=== PATIENT | female | born 1945 | race Caucasian/White ===

== ENCOUNTER 2017-01-08 09:49 | Inpatient (IN) | payer MEDICARE ==
[~2017-01-08] VITALS: Ht 165.1 cm; Wt 88.3 kg
[2017-01-08 11:18] VITALS: BP 117/73
--- NOTE | 2017-01-08 11:45 | Physical Therapy Evaluation ---
PT Evaluation-General Medical Diagnosis Admission Date Jan 08, 2017 at 11:14 Medical Diagnosis: debility Onset Date: Nov 23, 2016 Therapy Diagnosis Therapy Diagnosis: weakness; abn gait Precautions Precautions/Isolations: Standard Precautions Weight Bear Status Weight Bearing Restriction: Weight Bearing/Tolerated Referral Physician: Richi Reason for Referral: Evaluation/Treatment Medical History Pertinent Medical History: Atrial Fib, HTN Additional Medical History s/p lumpectomy breast; recent pneumonia Current History Pt diagnosed with breast cancer in late 2015 and underwent a lumpectomy and started chemotherapy. She began having "sciatic like" pain in her left buttock and leg. She was subsequently diagnosed with herpes zoster at the L5 region. chemotherapy was discontinued at that time. She had a progression of L LE weakness with the inability to ambulate. She started her hospital stay in [place], transferred to [facility]; from there transferred to [facility] in [place], [place]. She arrived to our ARU this date for continued aggressive therapy services with the goal to return home with her spouse. Pt reports she has been able to stand with therapy services at the [facility], but unable to take steps, ambulate or perform a transfer. Reports they have been using a carol lift to transfer from surface to surface. She is using a wheelchair for mobility. Reviewed History: Yes Social History Home: Single Level Current Living Status: Spouse Entry Into Home: Ramp Spouse reports home is handicap accessible. Pt has a FWW, WC, ramp, grab bars at toilet and in shower, walk in shower, tall toilet. Prior/Core FIM Prior Level of Function Functional [place] Measure 0=Not Assessed/NA 4=Minimal Assistance 1=Total Assistance 5=Supervision or Setup 2=Maximal Assistance 6=Modified [place] 3=Moderate Assistance 7=Complete [place] Prior to November 2016, pt was indep with mobility, community ambulator and able to to drive. She cares for her disabled granddaughter 5 days a week. PT Evaluation-Current Subjective Pt and spouse express being happy to be here. Pt reports her goal is to return home when able. Pain Numeric Pain Scale: 0-No Pain Location: No Pain Reported Comment: No pain at this time,reports she does have neuropathy pain at times Pt/Family Goals Home with spouse. Objective Patient Orientation: Person, Place, Time, Situation Problem Solving: Good ROM/Strength ROM Lower Extremities WNL B LE's Strenght Lower Extremities Right LE strength is grossly 4+/5 throughout. Left LE strength: hip flexion 2+/5, hip extension 2+/5, quads 2+/5, hamstrings 2+/5, DF unable to elicit Integumentary/Posture Integumentary Refer to nursing notes. Bowel Incontinence: Yes (at times; difficulty sensing when she needs to go) Bladder Incontinence: Mi Cath Posture Normal and symmetrical Neuromuscular (Tone, Coordination, Reflexes) Decreased coordination left LE with active movement; no noted alteration in tone ; reflexes appear to be symmetrical. Sensory Vision: Functional Hearing: Functional Hand Dominance: Right Sensation Right Lower Extremit: Intact Sensation Left Lower Extremity: Impaired Transfers Functional [place] Measure 0=Not Assessed/NA 4=Minimal Assistance 1=Total Assistance 5=Supervision or Setup 2=Maximal Assistance 6=Modified [place] 3=Moderate Assistance 7=Complete IndependenceIRFPAI Quality Coding Scale 6 Independent with activity with or without an assistive device 5 Patient requires set up or clean up by helper. Patient completes activity by themselves 4 Supervision or touching assist (CGA). [place] provide cues , steadying assist 3 The helper provides less than half the effort to complete the activity 2 The helper provides more than half the effort to complete the activity 1 Dependent. The helper does all the effort to complete an activity 7 Patient refused to complete or attempt activity 9 The patient did not perform the activity before the current illness or injury 88 Not attempted due to Medical conditions or safety concerns Transfers (B, C, W/C) (FIM): 3 Scootin Rollin Roll Left to Right (QC): 4 Supine to/from Sit: 4 (assist to left trunk from bed) Sit to/from Stand: 4 (min assist to come to a stand with cues for hand placement) bed t/f WC(FIM only if WC use): 3 (heavy assist with FWW; min assist at gait belt and assist to guide buttock) Sit to Lying (QC): 4 (CGA) Lying to Sitting/Side of Bed(Q: 4 Sit to Stand (QC): 4 Chair/Faz-hz-Lceqk Xfer(QC): 3 Car Transfer (QC): 88 Heavy reliance on FWW with SPT and requires skilled cues for sequence and to move the walker. Gait Does the Patient Walk?: Yes Mode of Locomotion: Both Anticipated Mode of Locomotion: Both Gait (FIM): 1 Distance (FIM): 1=up to 49 ft Walk 10 feet (QC): 88 Walk 50 ft with 2 Turns(QC): 88 Walk 150 ft (QC): 88 Walking 10ft/uneven surface-QC: 88 Distance: 4 steps only Gait Level of Assist: 4 (close CGA and assist with FWW) Gait Assistive Device: FWW Comments/Gait Description Decreased coordination and placement of left LE with steps; quad weakness noted with heavy reliance on FWW during standing. Wheelchair Training Does the Pt Use a Wheelchair?: Yes Wheelchair (FIM): 6 Wheelchair Distance (FIM): 3=150 ft Wheel 50 ft with 2 turns (QC): 6 Wheel 150 ft (QC): 6 Type of Wheelchair: Manual Stairs Stairs (FIM): 0 (unable to attempt; LE weakness; unable to ambulate. ) 1 Step (curb) (QC): 88 4 Steps (QC): 88 12 Steps (QC): 88 If not tested on admit;explain Unable to due to weakness Balance Sitting Static: Good Sitting Dynamic: Good Standing Static: Fair Standing Dynamic: Fair Picking up an Object (QC): 88 Treatment SPT to the right x 3 reps with mod assist with assist with the walker as well as min to CGA at the gait belt. Static standing activities while roberto carlos care performed by nursing; dep for roberto carlos care and to change undergarments. Toilet transfer with mod assist as well. Worked on bed mobility with rolling and scooting implemented. Wc mobility in [facility] area mod indep with mulitple turns. Assessment/Needs Pt presents with LE weakness and decreased coordination left LE with active movement with reduced ability to transfer and mobilize with gait. She needs light assist with bed mobility. She is oriented and motivated to progress. It appears her symptoms of weakness and decreased coordination are improving and feel she has good potential to make functional gains. Unsure if she will be at a full walking level or combo of walking/wheelchair at discharge. Will continue to assess. Personal factors: uses power chair for community mobility, breast CA, history of herpes zoster; L LE weakness; decreased coordination L LE; assist with transfers and bed mobility; unable to ambulate; Presents with a changing characteristic due to hx of herpes zoster, breast CA . Eval of moderate complexity. Rehab Potential: Good PT Short Term Goals Short Term Goals Time Frame: Jan 22, 2017 Transfers (B,C,W/C) (FIM): 4 Gait (FIM): 2 Distance (FIM): 1=up to 49 ft Gait Assistive Device: FWW PT Correction Goals Correction Goals PT Correction Goals Time Frame: February 05, 2017 Transfers (B,C,W/C) (FIM): 6 Sit to Lying (QC): 6 Lying-Sitting on Side/Bed(QC): 6 Sit to Stand (QC): 6 Roll Left to Right (QC): 6 Chair/Mif-jy-Zlcrm Xfer(QC): 6 Car Transfer (QC): 5 Does the Patient Walk: No and Walking Goal IS indicated Gait (FIM): 6 Gait distance (FIM): 3=150 ft Walk 10 feet (QC): 6 Walk 10ft-Uneven Surface(QC): 6 Walk 50ft with 2 Turns (QC): 6 Walk 150 ft (QC): 6 Gait Assistive Device: FWW Does the Pt use WC or Scooter?: Yes Wheelchair (FIM): 6 Wheel 50 feet with 2 turns (QC: 6 Stairs (FIM): 2 # of Steps: 4 1 Step (curb) (QC): 4 4 Steps (QC): 4 12 Steps (QC): 9 Picking up an Object (QC): 4 PT Plan Problem List Problem List: Activity Tolerance, Functional Strength, Safety, Balance, Gait, Transfer, Bed Mobility Treatment/Plan Treatment Plan: Continue Plan of Care Treatment Plan: Bed Mobility, Education, Functional Activity Tony, Functional Strength, Group Therapy, Gait, Safety, Therapeutic Exercise, Transfers Treatment Duration: February 05, 2017 # of days/week 5-6 Visits Per Week: 10-15 Minutes/Day (M-F): 60-90 Minutes/Day (Sat/Simpson): prn Safety Risks/Education Patient Education: Transfer Techniques, Safety Issues Teaching Recipient: Patient Teaching Methods: Demonstration Response to Teaching: Return Demonstration, Reinforcement Needed Time/GCodes Time In: 1015 Time Out: 1115 Total Billed Treatment Time: 60 Total Billed Treatment visit EVM 20 FA 40 CECILIA CARO PT Jan 08, 2017 11:45
[2017-01-08] MEDS ORDERED: PROCHLORPERAZINE 10 MG TAB (COMPAZINE) PO PRN (14:00)
[2017-01-08] MEDS ORDERED: BISACODYL 10 MG SUPP (DULCOLAX) PR PRN (14:00)
[2017-01-08] MEDS ORDERED: ANTACID SUSP 30 ML UDC (MYLANTA) PO PRN (14:00)
[2017-01-08] MEDS ORDERED: TEMAZEPAM 15 MG (RESTORIL) CAP PO PRN (14:00)
--- NOTE | 2017-01-08 14:37 | Therapy Group Daily Note ---
Therapy Daily Group Note Patient Education Topic Other List Below Exercises LE Seated Exercise, UE Exercise Other/Notes Pt was an active participant in OT/PT group. She introduced herself to the group for socialization by identifying her favorite job. She contributed to the discussion/education on the arthritic progress and joint protection and did seated UE, neck and trunk, and LE exercises and stretches . She propelled her w/ c to and from group and was returned to her room, all needs met. Start Time: 13:00 Stop Time: 14:15 Total Billed Treatment Time: 75 Total Billed Treatment visit, 75 minutes group DORIS LUU OT Jan 08, 2017 14:37
[2017-01-08] MEDS: oxyCODONE/APAP 5/325MG (PERCOCET 5) TABLET PO PRN (14:51)
[2017-01-08] MEDS ORDERED: ACETAMINOPHEN 325 MG TABLET/CAPLET (TYLENOL) PO PRN (15:00)
[2017-01-08 15:11] LABS: INR 3.4 (0.8-1.4); PROTHROMBIN TIME PATIENT 34.2 SEC (12.2-14.7)
--- NOTE | 2017-01-08 15:59 | Occupational Therapy Eval ---
OT Evaluation-General/PLF Medical Diagnosis Admission Date Jan 08, 2017 at 11:14 Medical Diagnosis: debility Onset Date: Nov 23, 2016 Therapy Diagnosis Therapy Diagnosis: decr self care, decr functional mobility, weakness Precautions Precautions/Isolations: Standard Precautions Weight Bear Status Weight Bearing Restriction: Weight Bearing/Tolerated Referral Physician: Richi Referral Reason: Evaluation/Treatment Medical History Pertinent Medical History: Atrial Fib, HTN Additional Medical History s/p lumpectomy breast; recent pneumonia Current History Pt diagnosed with breast cancer in late 2015 and underwent a lumpectomy and started chemotherapy. She began having "sciatic like" pain in her left buttock and leg. She was subsequently diagnosed with herpes zoster at the L5 region. chemotherapy was discontinued at that time. She had a progression of L LE weakness with the inability to ambulate. She started her hospital stay in [place], transferred to [facility]; from there transferred to [facility] in [place], [place]. She arrived to our ARU this date for continued aggressive therapy services with the goal to return home with her spouse. Pt reports she has been able to stand with therapy services at the [facility], but unable to take steps, ambulate or perform a transfer. Reports they have been using a carol lift to transfer from surface to surface. She is using a wheelchair for mobility. Reviewed History: Yes Social History Home: Single Level Current Living Status: Spouse Entry Into Home: Ramp ADL-Prior Level of Function ADL PLOF Comments Pt reported that she was independent with all of her basic ADLs prior to shingles, although she took periodic rest breaks during tasks. She was able to drive and manage IADLs as well. DME/Equipment: Bath Chair, Grab Bars, Shower, Tall Toilet DME/Equipment Comments reported that bathroom is fully accessible. Occupation: Has worked in manufacturing Drive Self: Yes OT Current Status Subjective Pt seen in room, up in w/c, agreeable to OT. No pain mentioned Appearance Alert, cooperative Mental Status/Objective Patient Orientation: Person, Place, Situation Attachments: Mi Catheter Current Glasses/Contacts: No Hearing Aids: No Dentures/Partials: No Hand Dominance: Left Upper Extremity ROM Grossly WFL bilat Upper Extremity Sensation Pt reported numbness in finger tips from chemo Upper Extremity Strength Grossly 4+/5 bilat but not adequate for supporting her weight when standing with FWW and for walking. ADL-Treatment Functional [place] Measure 0=Not Assessed/NA 4=Minimal Assistance 1=Total Assistance 5=Supervision or Setup 2=Maximal Assistance 6=Modified [place] 3=Moderate Assistance 7=Complete IndependenceIRFPAI Quality Coding Scale 6 Independent with activity with or without an assistive device 5 Patient requires set up or clean up by helper. Patient completes activity by themselves 4 Supervision or touching assist (CGA). [place] provide cues , steadying assist 3 The helper provides less than half the effort to complete the activity 2 The helper provides more than half the effort to complete the activity 1 Dependent. The helper does all the effort to complete an activity 7 Patient refused to complete or attempt activity 9 The patient did not perform the activity before the current illness or injury 88 Not attempted due to Medical conditions or safety concerns Eating (FIM): 6 (No assistance needed to open packages or cut food. can feed herself) Eating (QC): 6 Toileting (FIM): 1 (Pt unable to manage clothig or hygiene) Toileting Hygiene (QC): 1 Toilet/Commode Transfer (FIM): 3 (To BSC, per PT) Toilet Transfer (QC): 3 (Per PT) Other Treatments Pt propelled her w/c to gym. She did 12 minutes bilat UE exercise with arm bike set at 10-12 W resistance, as needed to strengthen arms for walking with FWW. Pt propelled herself back to her room and is able to lock brakes on w/c Education OT Patient Education: Exercise program, Progress toward Goal/Update tx plan, Purpose of tx/functional activities, Rehab process Teaching Recipient: Patient, Family Teaching Methods: Discussion Response to Teaching: Verbalize Understanding OT Short Term Goals Short Term Goals Time Frame: Jan 22, 2017 Toileting(FIM): 3 Toilet/Commode Transfer(FIM): 4 Additional Short Term Goals: 2-Verbalize Understanding, 3-ImproveStrength/Tony 1=Demonstrate adherence to instructed precautions during ADL tasks. 2=Patient will verbalize/demonstrate understanding of assistive devices/ modifications for ADL. 3=Patient will improve strength/tolerance for activity to enable patient to perform ADL's. OT Housing Installer Goals Intermediate Goals Time Frame: February 05, 2017 Eating (FIM): 7 Eating (QC): 6 Groomin Oral Hygiene (QC): 6 Bathing(FIM): 6 Shower/Bathe Self (QC): 6 Upper Body Dressing(FIM): 6 Upper Body Dressing (QC): 6 Lower Body Dressing(FIM): 6 Lower Body Dressing (QC): 6 On/Off Footwear (QC): 6 Toileting(FIM): 6 Toileting Hygiene (QC): 6 Toilet/Commode Transfer(FIM): 6 Toilet/Commode Transfer (QC): 6 Shower Transfer(FIM): 6 Additional Goals: 2-Verbalize Understanding, 3-ImproveStrength/Tony 1=Demonstrate adherence to instructed precautions during ADL tasks. 2=Patient will verbalize/demonstrate understanding of assistive devices/ modifications for ADL. 3=Patient will improve strength/tolerance for activity to enable patient to perform ADL's. OT Education/Plan Problem List/Assessment Assessment: Decreased Activ Tolerance, Decreased UE Strength, Dependent Transfers, Impaired Funct Balance, Impaired Self-Care Skills Pt would benefit from skilled OT to increase her independence in basic self care to allow her to safely return home to live with her . Discharge Recommendations Plan/Recommendations: Continue POC Treatment Plan/Plan of Care Treatment,Training & Education: Yes Patient would benefit from OT for education, treatment and training to promote independence in ADL's, mobility, safety and/or upper extremity function for ADL' s. Plan of Care: ADL Retraining, Functional Mobility, Group Exercise/Act as Ind ( education, exercise, activity tolerance, functional activities, memory), UE Funct Exercise/Act, UE Neuromus Re-Ed/Coord Treatment Duration: February 05, 2017 # of days/week 5-6 Visits Per Week: 10-11 Minutes/Day (M-F): 75-90 Minutes/Day (Sat/Simpson): PRN Agreement: Yes Rehab Potential: Good Time/GCodes Start Time: 11:15 Stop Time: 12:05 Total Time Billed (hr/min): 50 Billed Treatment Time visit, 20 minutes evaluation moderate intensity, 30 minutes exercise DORIS LUU OT Jan 08, 2017 15:59
[2017-01-08] MEDS: warFARin 5 MG (COUMADIN) TAB PO SCH (18:00)
[2017-01-08 18:41] VITALS: BP 132/76
[2017-01-08] MEDS: traZODone 50 MG (DESYREL) TAB PO SCH (20:29)
[2017-01-08] MEDS: PREGABALIN 100 MG (LYRICA) CAPSULE PO SCH (20:29)
[2017-01-08] MEDS: AMIODARONE 200 MG (CORDARONE) TAB PO SCH (20:29)
[2017-01-09 05:08] VITALS: BP 144/80
[2017-01-09 06:17] LABS: INR 3.1 (0.8-1.4); PROTHROMBIN TIME PATIENT 31.5 SEC (12.2-14.7)
[2017-01-09] MEDS: DULoxetine 30 MG (CYMBALTA) CAP PO SCH (07:54)
[2017-01-09] MEDS: LIDOCAINE (LIDODERM) 5% PATCH TOP SCH ×2 (07:55→10:00)
[2017-01-09] MEDS: DIGOXIN 0.125 MG (LANOXIN) TAB PO SCH (07:55)
[2017-01-09] MEDS: PREGABALIN 100 MG (LYRICA) CAPSULE PO SCH ×2 (07:55→20:35)
[2017-01-09] MEDS: AMIODARONE 200 MG (CORDARONE) TAB PO SCH ×2 (07:56→20:34)
--- NOTE | 2017-01-09 08:57 | Physical Therapy Daily Note ---
PT Daily Note-Current Subjective Patient in bed, agrees to PT, states she has some minor pain in her toes due to neuropathy. Patient will need to get dressed, will need to get on AFO, shoes, socks, bra, dress. Appearance Patient in wheelchair at bedside for ST, has nurse call, phone, tray, all needs met. Mental Status Patient Orientation: Normal For Age Transfers Functional [place] Measure 0=Not Assessed/NA 4=Minimal Assistance 1=Total Assistance 5=Supervision or Setup 2=Maximal Assistance 6=Modified [place] 3=Moderate Assistance 7=Complete IndependenceIRFPAI Quality Coding Scale 6 Independent with activity with or without an assistive device 5 Patient requires set up or clean up by helper. Patient completes activity by themselves 4 Supervision or touching assist (CGA). [place] provide cues , steadying assist 3 The helper provides less than half the effort to complete the activity 2 The helper provides more than half the effort to complete the activity 1 Dependent. The helper does all the effort to complete an activity 7 Patient refused to complete or attempt activity 9 The patient did not perform the activity before the current illness or injury 88 Not attempted due to Medical conditions or safety concerns Transfers (B, C, W/C) (FIM): 4 Scootin Rollin Supine to/from Sit: 4 Sit to/from Stand: 4 Bed to/from Chair: 4 Occasional cues for safety and hand placement. Gait Training Gait (FIM): 1 Distance: 12'x4 Gait Level of Assist: 4 Gait Persons Needed: 1 Gait Assistive Device: Parallel Bars Patient ambulated 6' forward and back in the parallel bars x4 with CGA/[place] Wheelchair Training Does the Pt Use a Wheelchair?: Yes Wheelchair (FIM): 6 Distance: 150'x2 Type of Wheelchair: Manual Exercises LAQ alternating for 5 min Treatments dressing, bed mobility and transfers, ambulation, wheelchair mobility, functional strengthening Assessment Current Status: Fair Progress improved ambulation and endurance PT Short Term Goals Short Term Goals Time Frame: Jan 22, 2017 Gait (FIM): 2 Distance (FIM): 1=up to 49 ft Gait Assistive Device: FWW PT Custodial Goals Custodial Goals PT Custodial Goals Time Frame: February 05, 2017 Transfers (B,C,W/C) (FIM): 6 Sit to Lying (QC): 6 Lying-Sitting on Side/Bed(QC): 6 Sit to Stand (QC): 6 Rollin Roll Left to Right (QC): 6 Chair/Vnz-zk-Havwf Xfer(QC): 6 Car Transfer (QC): 5 Does the Patient Walk: No and Walking Goal IS indicated Gait (FIM): 6 Gait distance (FIM): 3=150 ft Walk 10 feet (QC): 6 Walk 10ft-Uneven Surface(QC): 6 Walk 50ft with 2 Turns (QC): 6 Walk 150 ft (QC): 6 Gait Assistive Device: FWW Does the Pt use WC or Scooter?: Yes Wheelchair (FIM): 6 Wheel 50 feet with 2 turns (QC: 6 Stairs (FIM): 2 # of Steps: 4 1 Step (curb) (QC): 4 4 Steps (QC): 4 12 Steps (QC): 9 Picking up an Object (QC): 4 PT Plan Problem List Problem List: Activity Tolerance, Functional Strength, Safety, Balance, Gait, Transfer, Bed Mobility Treatment/Plan Treatment Plan: Continue Plan of Care Treatment Plan: Bed Mobility, Education, Functional Activity Tony, Functional Strength, Group Therapy, Gait, Safety, Therapeutic Exercise, Transfers Treatment Duration: February 05, 2017 Visits Per Week: 10-15 Minutes/Day (M-F): 60-90 Minutes/Day (Sat/Simpson): prn Safety Risks/Education Patient Education: Gait Training, Transfer Techniques, Correct Positioning, W/ C Management, Safety Issues Teaching Recipient: Patient Teaching Methods: Demonstration, Discussion Response to Teaching: Reinforcement Needed Time/GCodes Time In: 800 Time Out: 900 Total Billed Treatment Time: 60 Total Billed Treatment 1 visit GT 30 min FA 15 min WCH 15 min LALO VILLEGAS PT Jan 09, 2017 08:57
[2017-01-09] MEDS: ONDANSETRON 4 MG (ZOFRAN) ORAL DISSOLVE TAB PO PRN (11:28)
--- NOTE | 2017-01-09 13:43 | Occupational Ther Daily Note ---
OT Current Status-Daily Note Subjective Pt seen in room, up in w/c, agreeable to OT. No pain mentioned. Appearance Alert, cooperative Mental Status/Objective Functional [place] Measure 0=Not Assessed/NA 4=Minimal Assistance 1=Total Assistance 5=Supervision or Setup 2=Maximal Assistance 6=Modified [place] 3=Moderate Assistance 7=Complete [place] ADL-Treatment Functional [place] Measure 0=Not Assessed/NA 4=Minimal Assistance 1=Total Assistance 5=Supervision or Setup 2=Maximal Assistance 6=Modified [place] 3=Moderate Assistance 7=Complete IndependenceIRFPAI Quality Coding Scale 6 Independent with activity with or without an assistive device 5 Patient requires set up or clean up by helper. Patient completes activity by themselves 4 Supervision or touching assist (CGA). [place] provide cues , steadying assist 3 The helper provides less than half the effort to complete the activity 2 The helper provides more than half the effort to complete the activity 1 Dependent. The helper does all the effort to complete an activity 7 Patient refused to complete or attempt activity 9 The patient did not perform the activity before the current illness or injury 88 Not attempted due to Medical conditions or safety concerns Grooming (FIM): 5 (Pt brushed teeth at sink, w/c level. No hair to comb after chemotherapy. Washed face and hands in shower. ) Oral Hygiene (QC): 5 Bathing (FIM): 4 (Pt washed and dried all parts in shower, setup, supervision. Able to reach forward to dry legs. Stood CGA with grab bars to dry bottom. Shower bench, grab bars, hand held shower) Shower/Bathe Self (QC): 4 (CGA to dry bottom. ) Upper Body (FIM): 5 (Setup, bra and dress. "I used to have a lot of trouble with buttons but I'm doing OK now.") Upper Body Dressing (QC): 5 Lower Body Dressing (FIM): 3 (Help to get L feet into pants and thread marrufo bag. More than 50% help with socks and shoes (tying them), brace. Min assist sit to stand, holding on to grab bar to help pull pants up, one hand at a time. ) Lower Body Dressing (QC): 3 On/Off Footwear (QC): 2 Shower Transfer(FIM): 3 ([facility] assist with transfer, using grab bars, shower bench. transferred toward L side which is harder. transferred better into shower because she had AFO on. W/c level.) Other Treatment Pt propelled herself to and from shower room. At end of tx, transferred min assist w/c to bed and was able to get both legs into bed herself. left up in bed , 4 rails up, all needs met. Pt was fatigued at end of tx but pleased with her progress. Education OT Patient Education: Modified ADL techniques, Progress toward Goal/Update tx plan, Purpose of tx/functional activities, Safety issues, Transfer techniques Teaching Recipient: Patient Teaching Methods: Demonstration, Discussion Response to Teaching: Reinforcement Needed OT Short Term Goals Short Term Goals Time Frame: Jan 22, 2017 Toileting(FIM): 3 Toilet/Commode Transfer(FIM): 4 Additional Short Term Goals: 2-Verbalize Understanding, 3-ImproveStrength/Tony 1=Demonstrate adherence to instructed precautions during ADL tasks. 2=Patient will verbalize/demonstrate understanding of assistive devices/ modifications for ADL. 3=Patient will improve strength/tolerance for activity to enable patient to perform ADL's. OT Custodial Goals Managed Care Analyst Goals Time Frame: February 05, 2017 Eating (FIM): 7 Eating (QC): 6 Groomin Oral Hygiene (QC): 6 Bathing(FIM): 6 Shower/Bathe Self (QC): 6 Upper Body Dressing(FIM): 6 Upper Body Dressing (QC): 6 Lower Body Dressing(FIM): 6 Lower Body Dressing (QC): 6 On/Off Footwear (QC): 6 Toileting(FIM): 6 Toileting Hygiene (QC): 6 Toilet/Commode Transfer(FIM): 6 Toilet/Commode Transfer (QC): 6 Shower Transfer(FIM): 6 Additional Goals: 2-Verbalize Understanding, 3-ImproveStrength/Tony 1=Demonstrate adherence to instructed precautions during ADL tasks. 2=Patient will verbalize/demonstrate understanding of assistive devices/ modifications for ADL. 3=Patient will improve strength/tolerance for activity to enable patient to perform ADL's. OT Education/Plan Problem List/Assessment Pt would benefit from skilled OT to increase her independence in basic self care to allow her to safely return home to live with her . Discharge Recommendations Plan/Recommendations: Continue POC Treatment Plan/Plan of Care Patient would benefit from OT for education, treatment and training to promote independence in ADL's, mobility, safety and/or upper extremity function for ADL' s. Plan of Care: ADL Retraining, Functional Mobility, Group Exercise/Act as Ind ( education, exercise, activity tolerance, functional activities, memory), UE Funct Exercise/Act, UE Neuromus Re-Ed/Coord Treatment Duration: February 05, 2017 Visits Per Week: 10-11 Minutes/Day (M-F): 75-90 Minutes/Day (Sat/Simpson): PRN Agreement: Yes Rehab Potential: Good Time/GCodes Start Time: 10:00 Stop Time: 11:15 Total Time Billed (hr/min): 75 Billed Treatment Time visit, 75 minutes ADL DORIS LUU OT Jan 09, 2017 13:43
--- NOTE | 2017-01-09 13:52 | Occupational Ther Daily Note ---
OT Current Status-Daily Note Subjective Pt seen in room, up in bed, agreeable to OT. No pain mentioned but reported she had been a little nauseated after ADLs earlier today. Appearance Alert, cooperative Mental Status/Objective Functional [place] Measure 0=Not Assessed/NA 4=Minimal Assistance 1=Total Assistance 5=Supervision or Setup 2=Maximal Assistance 6=Modified [place] 3=Moderate Assistance 7=Complete [place] ADL-Treatment Functional [place] Measure 0=Not Assessed/NA 4=Minimal Assistance 1=Total Assistance 5=Supervision or Setup 2=Maximal Assistance 6=Modified [place] 3=Moderate Assistance 7=Complete IndependenceIRFPAI Quality Coding Scale 6 Independent with activity with or without an assistive device 5 Patient requires set up or clean up by helper. Patient completes activity by themselves 4 Supervision or touching assist (CGA). [place] provide cues , steadying assist 3 The helper provides less than half the effort to complete the activity 2 The helper provides more than half the effort to complete the activity 1 Dependent. The helper does all the effort to complete an activity 7 Patient refused to complete or attempt activity 9 The patient did not perform the activity before the current illness or injury 88 Not attempted due to Medical conditions or safety concerns Other Treatment Pt did 10 reps bilat UE exercise with red (medium resistance) theraband, to strengthen arms to help with transfers and ADLs. Pt educ on the different exercises and occasional skilled cue to do them correctly. Theraband left in room and pt encouraged to do some stretches on her own. Pt left up in bed, all needs met. OT Short Term Goals Short Term Goals Time Frame: Jan 22, 2017 Toileting(FIM): 3 Toilet/Commode Transfer(FIM): 4 Additional Short Term Goals: 2-Verbalize Understanding, 3-ImproveStrength/Tony 1=Demonstrate adherence to instructed precautions during ADL tasks. 2=Patient will verbalize/demonstrate understanding of assistive devices/ modifications for ADL. 3=Patient will improve strength/tolerance for activity to enable patient to perform ADL's. OT Assisted Goals Assisted Goals Time Frame: February 05, 2017 Eating (FIM): 7 Eating (QC): 6 Groomin Oral Hygiene (QC): 6 Bathing(FIM): 6 Shower/Bathe Self (QC): 6 Upper Body Dressing(FIM): 6 Upper Body Dressing (QC): 6 Lower Body Dressing(FIM): 6 Lower Body Dressing (QC): 6 On/Off Footwear (QC): 6 Toileting(FIM): 6 Toileting Hygiene (QC): 6 Toilet/Commode Transfer(FIM): 6 Toilet/Commode Transfer (QC): 6 Shower Transfer(FIM): 6 Additional Goals: 2-Verbalize Understanding, 3-ImproveStrength/Tony 1=Demonstrate adherence to instructed precautions during ADL tasks. 2=Patient will verbalize/demonstrate understanding of assistive devices/ modifications for ADL. 3=Patient will improve strength/tolerance for activity to enable patient to perform ADL's. OT Education/Plan Problem List/Assessment Pt would benefit from skilled OT to increase her independence in basic self care to allow her to safely return home to live with her . Discharge Recommendations Plan/Recommendations: Continue POC Treatment Plan/Plan of Care Patient would benefit from OT for education, treatment and training to promote independence in ADL's, mobility, safety and/or upper extremity function for ADL' s. Plan of Care: ADL Retraining, Functional Mobility, Group Exercise/Act as Ind ( education, exercise, activity tolerance, functional activities, memory), UE Funct Exercise/Act, UE Neuromus Re-Ed/Coord Treatment Duration: February 05, 2017 Visits Per Week: 10-11 Minutes/Day (M-F): 75-90 Minutes/Day (Sat/Simpson): PRN Agreement: Yes Rehab Potential: Good Time/GCodes Start Time: 13:00 Stop Time: 13:15 Total Time Billed (hr/min): 15 Billed Treatment Time visit, 15 minutes exercise DORIS LUU OT Jan 09, 2017 13:52
--- NOTE | 2017-01-09 14:33 | Physical Therapy Daily Note ---
PT Daily Note-Current Subjective Patient in bed pre tx, agrees to PT, no complaints of pain. Patient states she is very tired. Appearance Patient BTB post tx with nurse call, phone, tray, all needs met. Mental Status Patient Orientation: Normal For Age Attachments: Mi Catheter Transfers Functional [place] Measure 0=Not Assessed/NA 4=Minimal Assistance 1=Total Assistance 5=Supervision or Setup 2=Maximal Assistance 6=Modified [place] 3=Moderate Assistance 7=Complete IndependenceIRFPAI Quality Coding Scale 6 Independent with activity with or without an assistive device 5 Patient requires set up or clean up by helper. Patient completes activity by themselves 4 Supervision or touching assist (CGA). [place] provide cues , steadying assist 3 The helper provides less than half the effort to complete the activity 2 The helper provides more than half the effort to complete the activity 1 Dependent. The helper does all the effort to complete an activity 7 Patient refused to complete or attempt activity 9 The patient did not perform the activity before the current illness or injury 88 Not attempted due to Medical conditions or safety concerns Transfers (B, C, W/C) (FIM): 2 Scootin Rollin Supine to/from Sit: 4 Sit to/from Stand: 2 Bed to/from Chair: 2 Patient was much weaker this afternoon. Cues for safety and hand placement. Exercises NuStep Minutes: 15 NuStep Workload: 4 Treatments bed mobility and transfers, functional strengthening Assessment Current Status: Fair Progress improving endurance PT Short Term Goals Short Term Goals Time Frame: Jan 22, 2017 Gait (FIM): 2 Distance (FIM): 1=up to 49 ft Gait Assistive Device: FWW Wheelchair Distance: 150'x2 PT Assisted Goals Retreader Goals PT Assisted Goals Time Frame: February 05, 2017 Transfers (B,C,W/C) (FIM): 6 Sit to Lying (QC): 6 Lying-Sitting on Side/Bed(QC): 6 Sit to Stand (QC): 6 Rollin Roll Left to Right (QC): 6 Chair/[id number]-Jnrfe Xfer(QC): 6 Car Transfer (QC): 5 Does the Patient Walk: No and Walking Goal IS indicated Gait (FIM): 6 Gait distance (FIM): 3=150 ft Walk 10 feet (QC): 6 Walk 10ft-Uneven Surface(QC): 6 Walk 50ft with 2 Turns (QC): 6 Walk 150 ft (QC): 6 Gait Assistive Device: FWW Does the Pt use WC or Scooter?: Yes Wheelchair (FIM): 6 Wheel 50 feet with 2 turns (QC: 6 Stairs (FIM): 2 # of Steps: 4 1 Step (curb) (QC): 4 4 Steps (QC): 4 12 Steps (QC): 9 Picking up an Object (QC): 4 PT Plan Problem List Problem List: Activity Tolerance, Functional Strength, Safety, Balance, Gait, Transfer, Bed Mobility, ROM Treatment/Plan Treatment Plan: Continue Plan of Care Treatment Plan: Bed Mobility, Education, Functional Activity Tony, Functional Strength, Group Therapy, Gait, Safety, Therapeutic Exercise, Transfers Treatment Duration: February 05, 2017 Visits Per Week: 10-15 Minutes/Day (M-F): 60-90 Minutes/Day (Sat/Simpson): prn Safety Risks/Education Patient Education: Transfer Techniques, Correct Positioning, Safety Issues Teaching Recipient: Patient Teaching Methods: Demonstration, Discussion Response to Teaching: Reinforcement Needed Time/GCodes Time In: 1400 Time Out: 1430 Total Billed Treatment Time: 30 Total Billed Treatment 1 visit FA 15' EX 15' LALO VILLEGAS PT Jan 09, 2017 14:33
--- NOTE | 2017-01-09 14:40 | ST Cognitive Linguistic Eval ---
Speech Evaluation-General Medical Diagnosis debility Onset Date: Nov 23, 2016 Therapy Diagnosis Therapy Diagnosis: Cognitive Linguistic Skills WFL Precautions Precautions/Isolations: Fall Prevention, Standard Precautions Referral Referring Physician: Dr. Sanjay Stoddard Reason for Referral: Evaluation/Treatment Cognitive Screen Medical History Pertinent Medical History: Atrial Fib, HTN Reviewed History: Yes Social History Current Living Status: Spouse Speech PLF-Current Status Prior Level of Function The patient denied prior cognitive, speech, or language deficits prior to admission. Subjective The patient was recently admitted to [facility] Rehabilitation Unit following left lower leg weakness secondary to shingles. The patient greeted the clinician appropriately and agreed to participate in the cognitive evaluation on this date. Language Eval: Auditory Comprehends Simple Yes/No Ques: Functional Indent/Objects Multiple Paredes: Functional Ident/Pics in Multiple Paredes: Functional Follows 1-Step Commands: Functional Follows Complex Directions: Functional Follows General Conversations: Functional Language Eval: Verbal Language Completes Spontaneous Greeting: Functional Produces Auto, Serial Info: Functional Imitates Simple Words/Phrases: Functional Word Finding: Functional Requests Basic Needs: Functional States Basic Personal Info: Functional Expresses Complex Ideas: Functional Cognitive Patient Orientation The patient was oriented to month, day of week, date, year, location, and rationale for rehabilitation. Objective Cognitive Domain Attention: WNL Memory: WNL Problem Solving: Functional Executive Functions: WNL Objective Impression The patient demonstrated cognitive linguistic skills grossly WFL for appropriate completion of ADL's. Communication/Social Cognition Comprehension: 5 Expression: 6 Social Interaction: 5 Problem Solvin Memory: 5 Speech Patient Assess Expression of Ideas/Wants: Expression (4) Understanding [place] Content: Understands (4) Brief Interview-Mental Status: Yes Repetition of Three Words: Three (3) Temporal Orientation: Year: Correct (3) Temporal Orientation: Month: Accurate within 5 days(2) Temporal Orientation: Day: Correct (1) Recall : Wear to say "Sock": Yes, no cue required (2) Recall : Color: Yes, no cue required (2) Recall : Bed: Yes, no cue required (2) Speech-Plan Treatment Plan Speech Therapy Treatment Plan: Discontinue ST Evaluation, only. Rehab Potential: Good Safety Risks/Education Teaching Recipient: Patient Teaching Methods: Discussion Response to Teaching: Verbalize Understanding Education Topics Provided: Plan of Care, Recommendations Time Speech Therapy Time In: 09:30 Speech Therapy Time Out: 09:45 Total Billed Time: 15 Billed Treatment Time 1, YESICA GATES Jan 09, 2017 14:39
--- NOTE | 2017-01-09 16:28 | PM&R Post Admission Assessment ---
Post Admission Physician Asses The preadmission screen agrees with the post admission assessment that the patient is a good candidate for inpatient rehabilitation. The patient will have a comprehensive program of inpatient rehabilitation with a goal of maximizing level of functional dependence prior to discharge home with [family]. The patient will have PT/OT ninety minutes per day, each discipline, five days a week for gait strengthening, conditioning, balance, ADLs , any patient/family/caregiver training necessary. Speech therapy to do cognitive assessment and treat as indicted. Rehabilitation nursing to assist with bowel, bladder, skin, wound care, medication administration, pain management. Railroad Inspector to assist with discharge planning, community reentry. SCD's for DVT prophylaxis. She appears to be well motivated to participate in three hours of therapy a day. She should be able to tolerate three hours of therapy a day from a medical standpoint. She should benefit from the three hours of therapy a day. She has a reasonable discharge plan, reasonable discharge rehabilitation goals and a supportive family. She has various comorbidities that need to be closely monitored with medications and treatments adjusted on a daily basis as needed. These include: HTN Anticoagulation Chronic a FIB Urinary retention Pain and numbness left leg PARISA Barriers to discharge for this patient who had been independent prior to this and for her to be modified independent to supervision for ADLs and mobility skills prior to discharge home with [family], so as to lessen the burden of the caregivers. Risks for this patient include: 1. Fall 2. Fracture 3. DVT 4. Pulmonary embolism 5. Wound infection 6. Skin breakdown 7. Contractures 8. Poorly controlled pain 9. Urinary retention 10. UTI 11. Respiratory infection 12. Aspiration 13. Poorly controlled A FIB 14.Sub or supratherapeutic INR 15.Poorly controlled HTN Estimated Length of Stay: 21 days Prognosis: Rehab prognosis appears good for goal of discharge home with spouse modified independent to supervision for ADLs and mobility skills. YVONNE LIRA MD Jan 09, 2017 16:28
[2017-01-09] MEDS: warFARin 5 MG (COUMADIN) TAB PO SCH (17:40)
[2017-01-09 18:14] VITALS: BP 144/78
--- NOTE | 2017-01-09 18:58 | Consultation ---
History of Present Illness History of Present Illness Patient Consulted On(donell/time) 01/09/17 18:54 Date of Admission History of Present Illness Chief complaint debility. Patient's had breast cancer and had a lumpectomy Patient received chemotherapy. Patient got herpes zoster. Herpes zoster was in the hip region on the left side. 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 Surgeries appendectomy, hysterectomy, right lumpectomy, lymph nodes. Heart patient goes in and out of A. fib and sinus rhythm Allergies and Home Medications Allergies Coded Allergies: No Known Allergies (Verified Allergy, Unknown, 01/08/17) Past Hpawhss-Qofuhr-Glpvxy Hx Patient Social History Alcohol Use: Denies Use Recreational Drug Use: No Smoking Status: Never a Smoker Recent Foreign Travel: No Contact w/Someone Who Travel: No Recent Infectious Disease Expo: No Recent Hopitalizations: Yes (LENORA, MAX, OFELIA) Physical Abuse Screen: No Sexual Abuse: No Seasonal Allergies Seasonal Allergies: No Respiratory Respiratory Disorders: Pneumonia, Sleep Apnea Cardiovascular Cardiac Disorders: Atrial Fibrillation Musculoskeletal Musculoskeletal Disorders: Fractures HEENT Hearing Impairment: Hard of Hearing Cancer Cancer: Breast Integumentary Skin/Integumentary Disorders: Recent Skin Changes, Herpes Review of Systems-General Constitutional: malaise, weakness, other (Left foot drop) EENTM: no symptoms reported Respiratory: no symptoms reported Cardiovascular: other (A. fib) Gastrointestinal: other (Lost 41 pounds in 2 months) Genitourinary: other (Has Mi catheter) Physical Exam-General Problems Physical Exam Vital Signs Vital Sign - Last 12Hours 01/08/17 11:18 Temp 96.4 Pulse 60 Resp 20 B/P (MAP) 117/73 Pulse Ox 97 O2 Delivery Room Air Capillary Refill : General Appearance: WD/WN, no apparent distress Eyes: Bilateral Eye Normal Inspection HEENT: normal ENT inspection Neck: non-tender, normal inspection Respiratory: chest non-tender, lungs clear, normal breath sounds, no respiratory distress, no accessory muscle use Cardiovascular: regular rate, rhythm Gastrointestinal: non tender, soft Assessment/Plan Assessment/Plan Admission Diagnosis/Plan Debility. A. fib. Herpes zoster. Patient now in sinus rhythm. Left foot drop. Weight loss 41 pounds Clinical Quality Measures DVT/VTE Risk/Contraindication: Risk Factor Score Per Nursin RFS Level Per Nursing on Admit: 4+=Very High GELLENDER,BOUBACAR A DO Jan 09, 2017 18:58
[2017-01-09] MEDS: traZODone 50 MG (DESYREL) TAB PO SCH (20:34)
[2017-01-09] MEDS: LIDODERM PATCH REMOVAL TP SCH (20:36)
[2017-01-09] MEDS: oxyCODONE/APAP 5/325MG (PERCOCET 5) TABLET PO PRN (20:37)
[2017-01-10 05:00] VITALS: BP 115/68
[2017-01-10 06:45] LABS: INR 2.4 (0.8-1.4)
[2017-01-10 06:47] LABS: BASOPHILS % (AUTO) 1 % (0-10); EOSINOPHILS # (AUTO) 0.2 10^3/uL (0.0-0.3); EOSINOPHILS % (AUTO) 7 % (0-10); LYMPHOCYTES # (AUTO) 0.4 X 10^3 (1.0-4.0); LYMPHOCYTES % (AUTO) 21 % (12-44); MEAN CORPUSCULAR HEMOGLOBIN 31 PG (25-34); MEAN CORPUSCULAR HGB CONC 31 G/DL (32-36); MEAN CORPUSCULAR VOLUME 99 FL (80-99); MEAN PLATELET VOLUME 10.2 FL (7.4-10.4); MONOCYTES # (AUTO) 0.3 X 10^3 (0.0-1.0); MONOCYTES % (AUTO) 14 % (0-12); NEUTROPHILS # (AUTO) 1.3 X 10^3 (1.8-7.8); NEUTROPHILS % (AUTO) 58 % (42-75); PLATELET COUNT 140 10^3/uL (130-400); RED CELL DISTRIBUTION WIDTH 17.4 % (10.0-14.5); WHITE BLOOD COUNT 2.2 10^3/uL (4.3-11.0)
[2017-01-10 06:56] LABS: ALANINE AMINOTRANSFERASE 41 U/L (0-55); ALBUMIN 3.2 G/DL (3.2-4.5); ANION GAP 9 MMOL/L (5-14); ASPARTATE AMINO TRANSFERASE 40 U/L (5-34); BILIRUBIN,TOTAL 0.3 MG/DL (0.1-1.0); BLOOD UREA NITROGEN 10 MG/DL (7-18); BUN/CREATININE RATIO 14; CALCIUM 8.5 MG/DL (8.5-10.1); CARBON DIOXIDE 27 MMOL/L (21-32); CHLORIDE 108 MMOL/L (98-107); CREATININE SERUM 0.73 MG/DL (0.60-1.30); GFR ESTIMATED > 60; GLUCOSE 80 MG/DL (70-105); POTASSIUM 3.6 MMOL/L (3.6-5.0); SODIUM 144 MMOL/L (135-145); TOTAL PROTEIN 5.6 G/DL (6.4-8.2)
[2017-01-10] MEDS ORDERED: BISA10SU58 RC (08:19)
[2017-01-10] MEDS ORDERED: MAG30ORA2 PO (08:19)
[2017-01-10] MEDS ORDERED: PREG100C PO (08:19)
[2017-01-10] MEDS ORDERED: TEMA15CA PO (08:19)
[2017-01-10] MEDS ORDERED: LIDO700A6 TD (08:19)
[2017-01-10] MEDS ORDERED: DULO30CA48 PO (08:19)
[2017-01-10] MEDS ORDERED: POTA10TA10 PO (08:19)
[2017-01-10] MEDS ORDERED: METO-270 PO (08:19)
[2017-01-10] MEDS ORDERED: [UNRECOGNIZED DRUG - CODE] ID (08:19)
[2017-01-10] MEDS ORDERED: TRAZ-28 PO (08:19)
[2017-01-10] MEDS ORDERED: OXYC5TAB71 PO (08:19)
[2017-01-10] MEDS ORDERED: MAGN400O7 PO (08:19)
[2017-01-10] MEDS ORDERED: PROC10TA PO (08:19)
[2017-01-10] MEDS ORDERED: ONDA4TAB8 PO (08:19)
[2017-01-10] MEDS ORDERED: WARF5TAB PO (08:19)
[2017-01-10] MEDS ORDERED: ACET325T38 PO (08:19)
[2017-01-10] MEDS ORDERED: AMIO200T2 PO (08:19)
[2017-01-10] MEDS ORDERED: FURO20TA4 PO (08:19)
[2017-01-10] MEDS ORDERED: DIGO125T PO (08:19)
--- NOTE | 2017-01-10 08:44 | Progress Note (SOAP) ---
Subjective Subjective/Events-last exam patient feeling good today. Patient ready for physical therapy and occupational 2000 this morning. Herpes zoster. Breast cancer. Objective Exam Vital Signs Date Time Temp Pulse Resp B/P (MAP) Pulse Ox O2 Delivery O2 Flow Rate FiO2 01/10/17 05:00 97.7 49 22 115/68 94 NIV/CPAP 01/09/17 20:45 Room Air 01/09/17 18:14 96.5 61 16 144/78 Room Air I & O 01/10/17 07:00 Intake Total 1530 ml Output Total 1350 ml Balance 180 ml Capillary Refill : General Appearance: No Apparent Distress, WD/WN HEENT: Normal ENT Inspection Neck: Normal Inspection Respiratory: Chest Non Tender, Lungs Clear, Normal Breath Sounds, No Accessory Muscle Use, No Respiratory Distress Cardiovascular: Regular Rate, Rhythm, No Murmur Gastrointestinal: non tender Results Lab Laboratory Tests 01/10/17 06:07 Laboratory Tests 01/10/17 06:07: White Blood Count 2.2L, Red Blood Count 3.10L, Hemoglobin 9.5L, Hematocrit 31L, Mean Corpuscular Volume 99, Mean Corpuscular Hemoglobin 31, Mean Corpuscular Hemoglobin Concent 31L, Red Cell Distribution Width 17.4H, Platelet Count 140, Mean Platelet Volume 10.2, Neutrophils (%) (Auto) 58, Lymphocytes (%) (Auto) 21 , Monocytes (%) (Auto) 14H, Eosinophils (%) (Auto) 7, Basophils (%) (Auto) 1, Neutrophils # (Auto) 1.3L, Lymphocytes # (Auto) 0.4L, Monocytes # (Auto) 0.3, Eosinophils # (Auto) 0.2, Basophils # (Auto) 0.0, Prothrombin Time 26.0H, INR Comment 2.4H, Sodium Level 144, Potassium Level 3.6, Chloride Level 108H, Carbon Dioxide Level 27, Anion Gap 9, Blood Urea Nitrogen 10, Creatinine 0.73, Estimat Glomerular Filtration Rate > 60, BUN/Creatinine Ratio 14, Glucose Level 80, Calcium Level 8.5, Total Bilirubin 0.3, Aspartate Amino Transf (AST/SGOT) 40H, Alanine Aminotransferase (ALT/SGPT) 41, Alkaline Phosphatase 70, Total Protein 5.6L, Albumin 3.2 Assessment/Plan Assessment/Plan Assess & Plan/Chief Complaint Debility. A. fib. Herpes zoster. Patient now in sinus rhythm. Left foot drop. Weight loss 41 pounds. . Debility. Herpes zoster. 01/10/17. Clinical Quality Measures DVT/VTE Risk/Contraindication: Risk Factor Score Per Nursin RFS Level Per Nursing on Admit: 4+=Very High BOUBACAR MARR DO Jan 10, 2017 08:44
[2017-01-10] MEDS: PREGABALIN 100 MG (LYRICA) CAPSULE PO SCH ×2 (09:49→20:53)
[2017-01-10] MEDS: LIDOCAINE (LIDODERM) 5% PATCH TOP SCH (09:49)
[2017-01-10] MEDS: DULoxetine 30 MG (CYMBALTA) CAP PO SCH (09:50)
[2017-01-10] MEDS: DIGOXIN 0.125 MG (LANOXIN) TAB PO SCH (09:50)
[2017-01-10] MEDS: AMIODARONE 200 MG (CORDARONE) TAB PO SCH ×2 (09:50→20:53)
[2017-01-10] MEDS: oxyCODONE/APAP 5/325MG (PERCOCET 5) TABLET PO PRN (09:50)
--- NOTE | 2017-01-10 10:05 | HISTORY AND PHYSICAL ---
DATE OF ADMISSION: 01/08/2017 CHIEF COMPLAINT: Difficulty with walking, left leg weakness and numbness. HISTORY OF PRESENT ILLNESS: The patient is a 71-year-old female who was undergoing treatment for breast cancer, status post lumpectomy at [facility] with chemotherapy when she developed left leg pain, weakness, and sensory changes. oN 11/06 she began to notice mild pain in her left LEG which over the course of 2 weeks increaseED AND WAS ASSOCIATED WITH numbness in the whole leg. She saw her oncologist on 11/22 who noted she had a shingles rash on her buttock, prescribed Valtrex and gabapentin for pain. Her chemotherapy was placed on hold. She had increasing symptoms and was evaluated in the ED and had urinary retention. Her hospitalization was initially complicated by atrial fibrillation with rapid ventricular response. She underwent cardioversion on 11/25. She also developed pneumonia, and was treated with Zosyn from 11/24 to 12/04. The patient had a decline in her functional independence and was admitted to local nursing home unit in her home town of [place], [place]. The patient made gradual improvement, however, AND the patient and her spouse felt that she needed more intense therapy to return to prior level of function so that she may return home with her spouse. They live in a one-story house with a basement. She had been independent prior to this. Currently she was min to mod assist for transfers and min assist for ambulation with a front wheeled walker short distances, modified independent for propulsion manual wheelchair short distances. She is mod assist for toilet commode transfers. Set up for eating and grooming. Min assist for upper body dressing, max assist for lower body dressing. She has a boot to support her left ankle and reports decreased strength and decreased sensation in the left foot and ankle PAST MEDICAL HISTORY: 1. Breast cancer. 2. Atrial fibrillation. 3. Pneumonia 4. Hypertension. 5. PARISA on CPAP. 6. Irritable bowel syndrome. PAST SURGICAL HISTORY: 1. Lumpectomy for breast cancer. The lumpectomy was done on the right breast. 2. Hysterectomy. 3. Port placement for her chemotherapy. 4. Appendectomy. Imaging studies of the thoracic spine showed concern for focal myelomalacia. Lumbar spine MRI - multilevel stenosis, greatest at L3-4 and L4-5. ALLERGIES: No known medication allergies. FAMILY HISTORY: Noncontributory. SOCIAL HISTORY: Essentially as per above, lives with spouse in [place]. REVIEW OF SYSTEMS: Ten-point review of systems significant for numbness and weakness in the left leg. 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 INR today is 3.1. MEDICATIONS: 1. Lidoderm patch apply daily. 2. Cymbalta 30 mg p.o. daily. 3. Lanoxin 0.125 mg p.o. daily. 4. Trazodone 50 mg p.o. at bedtime. 5. Lyrica 100 mg p.o. b.i.d. 6. Toprol XL 12.5 mg p.o. b.i.d. 7. Amiodarone 200 mg p.o. b.i.d. 8. Coumadin 5 mg p.o. daily, currently on hold, INR more than 3 9. Tylenol 650 mg p.o. q.4 hours p.r.n. pain or fever. 10. Restoril 15 mg p.o. at bedtime p.r.n. sleep 11. Dulcolax 10 mg daily per rectum p.r.n. constipation. 12. Furosemide 20 mg p.o. daily p.r.n. edema. 13. Zofran 4 mg p.o. q.8 hours p.r.n. nausea. 14. Percocet generic 5/325, 1 tablet p.o. q.4 hours p.r.n. moderate pain. 15. KCL 10 mEq p.o. daily p.r.n. taking Lasix. 16. Compazine 10 mg p.o. q.6 hours p.r.n. nausea, vomiting. PHYSICAL EXAMINATION: Is significant for a pleasant female, appearing her stated age, alert and oriented, lying in bed in no acute distress. VITAL SIGNS: Blood pressure is 144/80, pulse is 68, irregular. She is afebrile. Respirations 18, O2 saturation 94% on room air. HEENT: She has alopecia. Vision, speech, hearing, grossly intact. No oral lesion is noted. NECK: Supple without mass. HEART: Irregular rhythm. LUNGS: Clear. ABDOMEN: Soft, nontender. Bowel sounds present. EXTREMITIES: Trace edema both ankles. No calf tenderness. MUSCULOSKELETAL: The patient has functional passive range of motion in all 4 extremities. NEUROLOGIC: The patient has functional strength in both upper extremities. Sensation - the patient reports some numbness in her fingertips which she relates to prior chemotherapy. Strength in the upper extremity grossly 4+/5. Cognition grossly intact. She is right-hand dominant. Strength right lower extremity grossly 4+/5. Left lower extremity hip flexion and extension 2+/5, quads 2+/5, ham string 2+/5, 0 dorsiflexion at the ankle She has decreased coordination in the left lower extremity. Sensation is intact to the right lower extremity, impaired to touch in the left lower extremity. IMPRESSION: 1. Ambulatory dysfunction secondary to polyneuropathy with resulting left leg weakness, numbness and pain due to apparent chemotherapy associated with lumbar radiculopathy with resulting decline in functional independence. 2. Hypertension, controlled with medication. 3. Chronic atrial fibrillation, controlled with medication. 4. Chronic anticoagulation with INR above therapeutic level, on hold. 5. PARISA on CPAP. 6. Right breast cancer, status post lumpectomy, status post chemotherapy. 7. Multilevel lumbar spinal stenosis greatest at L3-4, L4-5. 8. Urinary retention managed with indwelling Mi catheter. PLAN: The patient will comprehensive program of inpatient rehabilitation with goal of maximizing level of functional dependence prior to discharge home with spouse. The patient will have PT/OT daily 5 days a week, 60 and 90 minutes per day to meet above goals. Speech therapy has assessed the patient found her to be functional and signed off. Rehabilitation nursing to assist with bowel, bladder, skin care, medication administration, pain management. product manager financial services to assist with discharge planning, community reentry. Respiratory therapy to assist with CPAP administration as needed. Consult Dr. Roa for assist with medical management of this out of town patient. Monitor INR and adjust Coumadin as needed. ESTIMATED LENGTH OF STAY: Three weeks. PROGNOSIS: Rehab prognosis appears good for goal of discharge home with spouse with home health care hopefully, modified independent for ADLs and mobility skills with continence of bowel and bladder. DIET: Regular. CODE STATUS: Full code Job ID: [id number] Dictated Date: 01/09/2017 16:21:16 Channel Cementer Outsole Machine Date: 01/10/2017 09:40:14/melody BAILEY
--- NOTE | 2017-01-10 11:21 | Occupational Ther Daily Note ---
OT Current Status-Daily Note Subjective Pt seen in room, up in bed, agreeable to OT. No pain mentioned. Appearance Alert, cooperative Mental Status/Objective Functional [place] Measure 0=Not Assessed/NA 4=Minimal Assistance 1=Total Assistance 5=Supervision or Setup 2=Maximal Assistance 6=Modified [place] 3=Moderate Assistance 7=Complete [place] ADL-Treatment Functional [place] Measure 0=Not Assessed/NA 4=Minimal Assistance 1=Total Assistance 5=Supervision or Setup 2=Maximal Assistance 6=Modified [place] 3=Moderate Assistance 7=Complete IndependenceIRFPAI Quality Coding Scale 6 Independent with activity with or without an assistive device 5 Patient requires set up or clean up by helper. Patient completes activity by themselves 4 Supervision or touching assist (CGA). [place] provide cues , steadying assist 3 The helper provides less than half the effort to complete the activity 2 The helper provides more than half the effort to complete the activity 1 Dependent. The helper does all the effort to complete an activity 7 Patient refused to complete or attempt activity 9 The patient did not perform the activity before the current illness or injury 88 Not attempted due to Medical conditions or safety concerns Grooming (FIM): 6 (Mod I at w/c level in bathroom at sink, to brush teeth, wash face and hands. No hair to brush. Does not wear makeup. Cue to lock brakes "I always forget that") Upper Body (FIM): 4 (Min assist to fasten front zipper on bra (requiring strong aviation boatswain's mate to stretch bra). Donned blouse and managed buttons with setup. ) Lower Body Dressing (FIM): 4 (Pt education on use of dressing stick to don underwear. Pt educ use of soft sock aid for donning socks. Pt was able to get R shoe on and tie it (some difficulty crossing legs or putting leg on bed to get to foot). Needed help to get L foot into shoe with AFO but she could fasten brace and tie shoe (limited because of decreased AROM L foot)) Transfers (B, C, W/C) (FIM): 4 (Cues for hand placement with sit to stand and stand to sit. FWW, transferred to R from bed to w/c. ) Other Treatment Pt propelled herself to gym area and did 10 minutes bilat UE exercise with arm bike set at 20W resistance (increased resistance, with decreased time), with one brief break to get a drink of water. UE exercise to help with transfers, especially sit to stand and standing during ADLs. Pt returned to room, up in w/c , all needs met. Education OT Patient Education: Modified ADL techniques, Progress toward Goal/Update tx plan, Purpose of tx/functional activities, Safety issues, Transfer techniques, Use of adapted equipment Teaching Recipient: Patient Teaching Methods: Demonstration, Discussion Response to Teaching: Reinforcement Needed OT Short Term Goals Short Term Goals Time Frame: Jan 22, 2017 Toileting(FIM): 3 Toilet/Commode Transfer(FIM): 4 Additional Short Term Goals: 2-Verbalize Understanding, 3-ImproveStrength/Tony 1=Demonstrate adherence to instructed precautions during ADL tasks. 2=Patient will verbalize/demonstrate understanding of assistive devices/ modifications for ADL. 3=Patient will improve strength/tolerance for activity to enable patient to perform ADL's. OT [employer] Machine Assembler Goals [facility] Goals Time Frame: February 05, 2017 Eating (FIM): 7 Eating (QC): 6 Groomin Oral Hygiene (QC): 6 Bathing(FIM): 6 Shower/Bathe Self (QC): 6 Upper Body Dressing(FIM): 6 Upper Body Dressing (QC): 6 Lower Body Dressing(FIM): 6 Lower Body Dressing (QC): 6 On/Off Footwear (QC): 6 Toileting(FIM): 6 Toileting Hygiene (QC): 6 Toilet/Commode Transfer(FIM): 6 Toilet/Commode Transfer (QC): 6 Shower Transfer(FIM): 6 Additional Goals: 2-Verbalize Understanding, 3-ImproveStrength/Tony 1=Demonstrate adherence to instructed precautions during ADL tasks. 2=Patient will verbalize/demonstrate understanding of assistive devices/ modifications for ADL. 3=Patient will improve strength/tolerance for activity to enable patient to perform ADL's. OT Education/Plan Problem List/Assessment Pt would benefit from skilled OT to increase her independence in basic self care to allow her to safely return home to live with her . Discharge Recommendations Plan/Recommendations: Continue POC Treatment Plan/Plan of Care Patient would benefit from OT for education, treatment and training to promote independence in ADL's, mobility, safety and/or upper extremity function for ADL' s. Plan of Care: ADL Retraining, Functional Mobility, Group Exercise/Act as Ind ( education, exercise, activity tolerance, functional activities, memory), UE Funct Exercise/Act, UE Neuromus Re-Ed/Coord Treatment Duration: February 05, 2017 Visits Per Week: 10-11 Minutes/Day (M-F): 75-90 Minutes/Day (Sat/Simpson): PRN Agreement: Yes Rehab Potential: Good Time/GCodes Start Time: 09:30 Stop Time: 10:30 Total Time Billed (hr/min): 60 Billed Treatment Time visit, 45 minutes ADL, 15 minutes exercise DORIS LUU OT Jan 10, 2017 11:21
--- NOTE | 2017-01-10 11:34 | PM & R (SOAP) Progress Note ---
Subjective Subjective/Events-last exam Patient was seen in her room this AM Discussed case with DR Librado zimmerman urinary retention Appreciate Dr brizuela notes and orders INR noted as well as other labs and therapy notes Objective Exam Last Set of Vital Signs Vital Signs Date Time Temp Pulse Resp B/P (MAP) Pulse Ox O2 Delivery O2 Flow Rate FiO2 01/10/17 09:00 Room Air 01/10/17 05:00 97.7 49 22 115/68 94 Capillary Refill : I&O Intake and Output 01/10/17 00:00 Intake Total 1480 ml Output Total 1225 ml Balance 255 ml Intake Oral 1480 ml Output Urine Total 1225 ml # Bowel Movements 3 General: Alert, Oriented X3, Cooperative, No Acute Distress HEENT: Atraumatic, PERRLA, EOMI, Mucous Memb Moist/[place], Other (alopecia) Neck: Supple, No JVD Lungs: Clear to Auscultation Heart: Regular Rate Abdomen: Normal Bowel Sounds, Soft, No Tenderness Extremities: Other (trace edema) Neuro: Other (weakness and decreased sensation distal LLE) Other physical findings Indwelling Mi catheter to DD Results Lab Laboratory Tests 01/08/17 14:48: Prothrombin Time 34.2H, INR Comment 3.4H 01/09/17 05:55: Prothrombin Time 31.5H, INR Comment 3.1H 01/10/17 06:07: Prothrombin Time 26.0H, INR Comment 2.4H, White Blood Count 2.2L, Red Blood Count 3.10L, Hemoglobin 9.5L, Hematocrit 31L, Mean Corpuscular Volume 99, Mean Corpuscular Hemoglobin 31, Mean Corpuscular Hemoglobin Concent 31L, Red Cell Distribution Width 17.4H, Platelet Count 140, Mean Platelet Volume 10.2, Neutrophils (%) (Auto) 58, Lymphocytes (%) (Auto) 21, Monocytes (%) (Auto) 14H, Eosinophils (%) (Auto) 7, Basophils (%) (Auto) 1, Neutrophils # (Auto) 1.3L, Lymphocytes # (Auto) 0.4L, Monocytes # (Auto) 0.3, Eosinophils # (Auto) 0.2, Basophils # (Auto) 0.0, Sodium Level 144, Potassium Level 3.6, Chloride Level 108H, Carbon Dioxide Level 27, Anion Gap 9, Blood Urea Nitrogen 10, Creatinine 0.73, Estimat Glomerular Filtration Rate > 60, BUN/Creatinine Ratio 14, Glucose Level 80, Calcium Level 8.5, Total Bilirubin 0.3, Aspartate Amino Transf (AST/ SGOT) 40H, Alanine Aminotransferase (ALT/SGPT) 41, Alkaline Phosphatase 70, Total Protein 5.6L, Albumin 3.2 Assessment/Plan Assessment Lumbar SS with Myelopathy/weakness and impaired sensation LLE Zoster treated Breast CA s/p lumpectomy and chemo with Peripheral neuropathy and weakness Urinary retention managed with Indwelling Mi catheter -DR Pavon following Alopecia due to chemo Chronic A FIB Anticoagulated on Coumadin Plan Continue PT/OT F/U with DR Roa and Librado Trend INR and adjust meds as needed TEam Conference to be held later today-sEE REPORT FOR FULL FUNCTIONAL UPDATE AND poc AND YVONNE Singh MD Jan 10, 2017 11:34
--- NOTE | 2017-01-10 12:17 | Physical Therapy Daily Note ---
PT Daily Note-Current Subjective Pt. shares her illness history as well as her husbands and what she may have to deal with to return home. States her is power chair dependent and she also may need to be in w/c " if I cant get stronger". No c/o pain, states she made progress here in the first 5 mins and feels she is in good hands. c/o fatigue with Rx. Pain Numeric Pain Scale: 0-No Pain Mental Status Patient Orientation: Normal For Age Attachments: Other-See Comments (AFO and shoe Left foot) Transfers Functional [place] Measure 0=Not Assessed/NA 4=Minimal Assistance 1=Total Assistance 5=Supervision or Setup 2=Maximal Assistance 6=Modified [place] 3=Moderate Assistance 7=Complete IndependenceIRFPAI Quality Coding Scale 6 Independent with activity with or without an assistive device 5 Patient requires set up or clean up by helper. Patient completes activity by themselves 4 Supervision or touching assist (CGA). [place] provide cues , steadying assist 3 The helper provides less than half the effort to complete the activity 2 The helper provides more than half the effort to complete the activity 1 Dependent. The helper does all the effort to complete an activity 7 Patient refused to complete or attempt activity 9 The patient did not perform the activity before the current illness or injury 88 Not attempted due to Medical conditions or safety concerns Transfers (B, C, W/C) (FIM): 3 Scootin Rollin (difficulty rolling toward right as LLE does not readily assist to push her etc.) Supine to/from Sit: 3 (great difficulty sup to right side to sit, requiring mod assist of 1) Sit to/from Stand: 4 Bed to/from Chair: 4 SPTs CGA and skilled verbal cuing for wider PASCUAL and foot placement Gait Training Does the Patient Walk?: Yes Gait (FIM): 1 Distance (FIM): 1=up to 49 ft (6ftx3) Gait Level of Assist: 4 Gait Persons Needed: 1 Gait Assistive Device: FWW w/c to f/u, heavy wt bearing on FWW Wheelchair Training Does the Pt Use a Wheelchair?: Yes Wheelchair (FIM): 2 Wheelchair Distance: 2=156-37 ft (100x2) Wheelchair Level of Assist: 4 Type of Wheelchair: Manual locks brakes indep, can use UEs and LEs to propel. Exercises Supine Ex: Bridging, Ankle pumps, Quad Set, Rolling, Heel Slides, Short Arc Quads, Scooting, Straight leg raise, Hip abd/add Supine Reps: 12 Standing: Marching (mini november) Standing Reps: 7 leg presses x15 with this pt. holding mechanism on Nustep up to allow this motion NuStep Minutes: 10 (5min with hands and 5 min without) NuStep Workload: 1 Assessment Current Status: Good Progress fatigued after rx, in bed with salgado at hand PT Short Term Goals Short Term Goals Time Frame: Jan 22, 2017 Gait (FIM): 2 Distance (FIM): 1=up to 49 ft Gait Assistive Device: FWW Wheelchair Distance: 150'x2 PT Jail Goals Jail Goals PT Wage And Salary Administrator Goals Time Frame: February 05, 2017 Transfers (B,C,W/C) (FIM): 6 Sit to Lying (QC): 6 Lying-Sitting on Side/Bed(QC): 6 Sit to Stand (QC): 6 Rollin Roll Left to Right (QC): 6 Chair/Wua-gj[place] Xfer(QC): 6 Car Transfer (QC): 5 Does the Patient Walk: No and Walking Goal IS indicated Gait (FIM): 6 Gait distance (FIM): 3=150 ft Walk 10 feet (QC): 6 Walk 10ft-Uneven Surface(QC): 6 Walk 50ft with 2 Turns (QC): 6 Walk 150 ft (QC): 6 Gait Assistive Device: FWW Does the Pt use WC or Scooter?: Yes Wheelchair (FIM): 6 Wheel 50 feet with 2 turns (QC: 6 Stairs (FIM): 2 # of Steps: 4 1 Step (curb) (QC): 4 4 Steps (QC): 4 12 Steps (QC): 9 Picking up an Object (QC): 4 PT Plan Treatment/Plan Treatment Plan: Continue Plan of Care Treatment Plan: Bed Mobility, Education, Functional Activity Tony, Functional Strength, Group Therapy, Gait, Safety, Therapeutic Exercise, Transfers Treatment Duration: February 05, 2017 Visits Per Week: 10-15 Minutes/Day (M-F): 60-90 Minutes/Day (Sat/Simpson): prn Safety Risks/Education Patient Education: Gait Training, Transfer Techniques, Correct Positioning, W/ C Management, Safety Issues Teaching Recipient: Patient Teaching Methods: Demonstration, Discussion Response to Teaching: Verbalize Understanding, Return Demonstration, Reinforcement Needed Time/GCodes Time In: 1100 Time Out: 1200 Total Billed Treatment Time: 60 Total Billed Treatment 1,GT15m,EX15m,WC15m,FA15m G Codes Necessary: MAXIM Nj PASSENGER SERVICE SUPERVISOR Jan 10, 2017 12:17
--- NOTE | 2017-01-10 13:19 | CONSULTATION REPORT ---
DATE OF CONSULTATION: 01/10/2017 ATTENDING PHYSICIAN: Dr. Stoddard. SUMMARY: 71-year-old white lady with multiple neurological problems was admitted to the rehab was Mi catheter was inserted because of urinary retention. The patient denies any previous retention before, had no voiding symptoms. No incontinence. She denies any UTI. IMPRESSION: Neurogenic bladder with urinary retention. PLAN: We will discontinue the catheter, straight catheter p.r.n. and manage accordingly. If we need to we will be using some Flomax and urecholine if continue to have problems. Job ID: [id number] Dictated Date: 01/10/2017 11:55:12 Log Cutter Date: 01/10/2017 13:16:04/melody
--- NOTE | 2017-01-10 14:42 | Therapy Group Daily Note ---
Therapy Daily Group Note Patient Education Topic Other List Below (rehab process, TRF modes and techniques) Exercises Other (arm chair push ups) Other/Notes Pt. attended group PT OT session . Pt. came and went via w/c. Pt. was social sharing her name and residence as well as " words of wisdom for a 20 yr old" . Pt. was attentive and participated in education RE: TRFs: scooting, rolling, supine to side to sit as well as SPTs and demo of frequently used equipment. Pt. returned to room with assist to bed and salgado at hand. Start Time: 13:00 Stop Time: 14:15 Total Billed Treatment Time: 75 Total Billed Treatment 1,GRP MAXIM THOMAS STRAWHAT BLOCKING OPERATOR Jan 10, 2017 14:42
[2017-01-10 17:50] VITALS: BP 103/53
[2017-01-10] MEDS: warFARin 5 MG (COUMADIN) TAB PO SCH (18:01)
[2017-01-10] MEDS: traZODone 50 MG (DESYREL) TAB PO SCH (20:53)
[2017-01-10] MEDS: LIDODERM PATCH REMOVAL TP SCH (20:57)
[2017-01-11 06:00] VITALS: BP 120/70
[2017-01-11 06:22] LABS: MEAN PLATELET VOLUME 9.9 FL (7.4-10.4); RED BLOOD COUNT 3.11 10^6/uL (4.35-5.85); RED CELL DISTRIBUTION WIDTH 17.3 % (10.0-14.5); WHITE BLOOD COUNT 2.6 10^3/uL (4.3-11.0)
[2017-01-11 06:40] LABS: INR 2.5 (0.8-1.4); PROTHROMBIN TIME PATIENT 27.2 SEC (12.2-14.7)
[2017-01-11] MEDS: FUROSEMIDE 20 MG (LASIX) TAB PO PRN (09:27)
[2017-01-11] MEDS: DIGOXIN 0.125 MG (LANOXIN) TAB PO SCH (09:27)
[2017-01-11] MEDS: AMIODARONE 200 MG (CORDARONE) TAB PO SCH ×2 (09:27→20:51)
[2017-01-11] MEDS: PREGABALIN 100 MG (LYRICA) CAPSULE PO SCH ×2 (09:27→20:51)
[2017-01-11] MEDS: DULoxetine 30 MG (CYMBALTA) CAP PO SCH (09:27)
--- NOTE | 2017-01-11 09:29 | Physical Therapy Daily Note ---
PT Daily Note-Current Subjective Patient in bed pre tx, agrees to PT, states the only pain she has is in her toes but she always has that pain due to neuropathy. Patient needs to get dressed. Appearance Patient in wheelchair at bedside post tx per OT request, has nurse call, phone, tray, all needs met. Mental Status Patient Orientation: Normal For Age Transfers Functional [place] Measure 0=Not Assessed/NA 4=Minimal Assistance 1=Total Assistance 5=Supervision or Setup 2=Maximal Assistance 6=Modified [place] 3=Moderate Assistance 7=Complete IndependenceIRFPAI Quality Coding Scale 6 Independent with activity with or without an assistive device 5 Patient requires set up or clean up by helper. Patient completes activity by themselves 4 Supervision or touching assist (CGA). [place] provide cues , steadying assist 3 The helper provides less than half the effort to complete the activity 2 The helper provides more than half the effort to complete the activity 1 Dependent. The helper does all the effort to complete an activity 7 Patient refused to complete or attempt activity 9 The patient did not perform the activity before the current illness or injury 88 Not attempted due to Medical conditions or safety concerns Transfers (B, C, W/C) (FIM): 4 Scootin Rollin Supine to/from Sit: 5 Sit to/from Stand: 4 Bed to/from Chair: 4 Patient needs cues for hand placement. Initially she was a little retropulsive after getting up from bed but that seemed to resolve after a few minutes. Gait Training Gait (FIM): 1 Distance: 10'x2 Gait Level of Assist: 4 Gait Persons Needed: 1 Gait Assistive Device: FWW Wheelchair follow. Patient has to bear a lot of weight through her arms due to leg weakness. Wheelchair Training Wheelchair (FIM): 6 Distance: 200'x2 Type of Wheelchair: Manual Exercises LAQ alternating for 5 min, seated hip flexion x20, patient stood in the parallel bars and was instructed to bear as much weight as she could on her legs for as long as she could, 5 min the first time and 2 min the next Treatments dressing, bed mobility and transfers, ambulation, functional strengthening, wheelchair mobility Assessment Current Status: Fair Progress improving endurance and ambulation PT Short Term Goals Short Term Goals Time Frame: Jan 22, 2017 Gait (FIM): 2 Distance (FIM): 1=up to 49 ft Gait Assistive Device: FWW Wheelchair Distance: 150'x2 PT Fdc Goals Fdc Goals PT Carriage Rider Goals Time Frame: February 05, 2017 Transfers (B,C,W/C) (FIM): 6 Sit to Lying (QC): 6 Lying-Sitting on Side/Bed(QC): 6 Sit to Stand (QC): 6 Rollin (difficulty rolling toward right as LLE does not readily assist to push her etc.) Roll Left to Right (QC): 6 Chair/Xep-tg-Znzur Xfer(QC): 6 Car Transfer (QC): 5 Does the Patient Walk: No and Walking Goal IS indicated Gait (FIM): 6 Gait distance (FIM): 3=150 ft Walk 10 feet (QC): 6 Walk 10ft-Uneven Surface(QC): 6 Walk 50ft with 2 Turns (QC): 6 Walk 150 ft (QC): 6 Gait Assistive Device: FWW Does the Pt use WC or Scooter?: Yes Wheelchair (FIM): 6 Wheel 50 feet with 2 turns (QC: 6 Stairs (FIM): 2 # of Steps: 4 1 Step (curb) (QC): 4 4 Steps (QC): 4 12 Steps (QC): 9 Picking up an Object (QC): 4 PT Plan Problem List Problem List: Activity Tolerance, Functional Strength, Safety, Balance, Gait, Transfer, Bed Mobility Treatment/Plan Treatment Plan: Continue Plan of Care Treatment Plan: Bed Mobility, Education, Functional Activity Tony, Functional Strength, Group Therapy, Gait, Safety, Therapeutic Exercise, Transfers Treatment Duration: February 05, 2017 Visits Per Week: 10-15 Minutes/Day (M-F): 60-90 Minutes/Day (Sat/Simpson): prn Safety Risks/Education Patient Education: Gait Training, Transfer Techniques, Correct Positioning, W/ C Management, Safety Issues Teaching Recipient: Patient Teaching Methods: Demonstration, Discussion Response to Teaching: Reinforcement Needed Time/GCodes Time In: 830 Time Out: 930 Total Billed Treatment Time: 60 Total Billed Treatment [address] [facility] 15 min GT 15 min FA 15 min EX 15 min LALO VILLEGAS PT Jan 11, 2017 09:29
--- NOTE | 2017-01-11 10:04 | Progress Note-Urology ---
Progress Note-Urology Progress Notes/Assess & Plan Progress/Assessment & Plan UNABLE TO VOID. NEEDED STRAIGHT CATH. PLAN CARROLL AND START ON FLOMAX. TOV ON SUNDAY AND IF NEEDED START URECHOLINE Final Diagnosis URINE RETENTION SELENE HUBBARD MD Jan 11, 2017 10:04 am
--- NOTE | 2017-01-11 10:25 | Individualized Plan of Care ---
Individualized Plan of Care Rehab Nursing IPOC Order Admission Date Jan 08, 2017 at 11:14 Current Orders Orders Catheter(Urinary) Discontinue (01/10/17 11:52) Patient Visit (01/10/17 ) Gait Training, Ea 15 Min (01/10/17 ) Wheelchair Mgmt/Propulsn 15min (01/10/17 ) Functional Activities, Ea 15 (01/10/17 ) Exercise Therap, Ea 15 Min (01/10/17 ) Therapeutic, Group (01/10/17 ) Catheter(Urinary) To Dependent (01/11/17 10:04) Alfuzosin Tablet (Uroxatral Tablet) (01/11/17 18:00) Rehab Nursing Orders: Bladder Training Other Nursing Orders: Trial of voiding 01/15/17 PT IPOC Problem List: Activity Tolerance, Functional Strength, Safety, Balance, Gait, Transfer, Bed Mobility Treatment Plan: Continue Plan of Care Bed Mobility, Education, Functional Activity Tony, Functional Strength, Group Therapy, Gait, Safety, Therapeutic Exercise, Transfers Treatment Duration: February 05, 2017 Visits Per Week: 10-15 Minutes/Day (M-F): 60-90 Minutes/Day (Sat/Simpson): prn OT IPOC Problems: Decreased Activ Tolerance, Decreased UE Strength, Dependent Transfers , Impaired Funct Balance, Impaired Self-Care Skills OT Problems Pt would benefit from skilled OT to increase her independence in basic self care to allow her to safely return home to live with her . Plan of Care: ADL Retraining, Functional Mobility, Group Exercise/Act as Ind ( education, exercise, activity tolerance, functional activities, memory), UE Funct Exercise/Act, UE Neuromus Re-Ed/Coord Treatment Duration: February 05, 2017 Visits Per Week: 10-11 Minutes/Day (M-F): 75-90 Minutes/Day (Sat/Simpson): PRN ST IPOC Speech Therapy Treatment Plan: Discontinue ST Physician IPOC Medical Issues being managed closely and that require the 24 hour availability of a physician: urinary retention Pain management weakness and numbness left leg Anticoagulation for A fib Medical Issues: Bowel/Bladder Function, DVT Prophylaxis, Falls Precautions, Fluid/Electrolyte/Nutrition Balance, Infection Protection, Pain Management, Other (List) (as per above) Brief Synthesis of Preadmission Screen, Post-Admission Evaluation, and Therapy Evaluations: 71 yo female who developed peripheral neuropathy following chemo for breast CA treated at OSH Also developed Shingles and chemo halted and patient treated for this,Left with residual pain and numbness in LLE Patient developed post op urinary retention and patient being followed by Urology-to have trial of voiding on 01/15/17 Has Chronic A Fib and patient is anticoagulated with Coumadin Medical Prognosis: good Anticipated Length of Stay: 02/05/17 Rehab Goals Modified Indpendent for adls and mobility skills with continence of bowel and bladder Anticipated discharge destinat: Home with family and [facility] YVONNE LIRA MD Jan 11, 2017 10:25
[2017-01-11] MEDS: LIDOCAINE (LIDODERM) 5% PATCH TOP SCH (10:33)
[2017-01-11] MEDS: oxyCODONE/APAP 5/325MG (PERCOCET 5) TABLET PO PRN (11:06)
--- NOTE | 2017-01-11 12:48 | Occupational Ther Daily Note ---
OT Current Status-Daily Note Subjective Pt seen in room, up in w/c, agreeable to OT. No pain mentioned. Appearance Alert, cooperative Mental Status/Objective Functional [place] Measure 0=Not Assessed/NA 4=Minimal Assistance 1=Total Assistance 5=Supervision or Setup 2=Maximal Assistance 6=Modified [place] 3=Moderate Assistance 7=Complete [place] ADL-Treatment Functional [place] Measure 0=Not Assessed/NA 4=Minimal Assistance 1=Total Assistance 5=Supervision or Setup 2=Maximal Assistance 6=Modified [place] 3=Moderate Assistance 7=Complete IndependenceIRFPAI Quality Coding Scale 6 Independent with activity with or without an assistive device 5 Patient requires set up or clean up by helper. Patient completes activity by themselves 4 Supervision or touching assist (CGA). [place] provide cues , steadying assist 3 The helper provides less than half the effort to complete the activity 2 The helper provides more than half the effort to complete the activity 1 Dependent. The helper does all the effort to complete an activity 7 Patient refused to complete or attempt activity 9 The patient did not perform the activity before the current illness or injury 88 Not attempted due to Medical conditions or safety concerns Bathing (FIM): 4 (Pt washed and dried all parts except back. Shower bench, grab bars, hand held shower, long handled sponge. Pt educ on use of long handled sponge to wash and dry lower legs. Setup. CGA when standing to wash bottom. ) Upper Body (FIM): 5 (Donned dress and bra without help. Able to manage buttons , hooks on front of bra) Lower Body Dressing (FIM): 4 (Pt education use of dressing stick to take shoes and socks off. Pt educ use of dressing stick to don pants, use of sock aid for socks on. Pt stood at grab bars to pullpants up. Needed just a little help getting pants over hips, with one hand free at a time. CGA when standing) Toileting (FIM): 4 (CGA when standing for clothing management. pt wiped herself. Used regular tall toilet, grab bars) Transfers (B, C, W/C) (FIM): 4 (Min assist sit to stand and pivot transfer with FWW to bed, toward her R side. She was able to get both legs into bed and position herself comfortably. ) Toilet/Commode Transfer (FIM): 4 (Min assist, using grab bars and tall toilet. Some difficulty because grab bars are only on R side and she problem-solved where to put her L UE to help with up and down. Discussed transfer may feel safer if she does it with FWW.) Shower Transfer(FIM): 4 (Min assist to shower bench, using grab bars. Some difficulty because grab bars are only on her R side and she has to pivot with her L hand on the right side. Will practice sidestepping into tub instead of pivoting. More difficult when L AFO is not on. ) Pt left up in bed, all needs met. OT Short Term Goals Short Term Goals Time Frame: Jan 22, 2017 Toileting(FIM): 3 Toilet/Commode Transfer(FIM): 4 Additional Short Term Goals: 2-Verbalize Understanding, 3-ImproveStrength/Tony 1=Demonstrate adherence to instructed precautions during ADL tasks. 2=Patient will verbalize/demonstrate understanding of assistive devices/ modifications for ADL. 3=Patient will improve strength/tolerance for activity to enable patient to perform ADL's. OT Assisted Goals Assisted Goals Time Frame: February 05, 2017 Eating (FIM): 7 Eating (QC): 6 Groomin Oral Hygiene (QC): 6 Bathing(FIM): 6 Shower/Bathe Self (QC): 6 Upper Body Dressing(FIM): 6 Upper Body Dressing (QC): 6 Lower Body Dressing(FIM): 6 Lower Body Dressing (QC): 6 On/Off Footwear (QC): 6 Toileting(FIM): 6 Toileting Hygiene (QC): 6 Toilet/Commode Transfer(FIM): 6 Toilet/Commode Transfer (QC): 6 Shower Transfer(FIM): 6 Additional Goals: 2-Verbalize Understanding, 3-ImproveStrength/Tony 1=Demonstrate adherence to instructed precautions during ADL tasks. 2=Patient will verbalize/demonstrate understanding of assistive devices/ modifications for ADL. 3=Patient will improve strength/tolerance for activity to enable patient to perform ADL's. OT Education/Plan Problem List/Assessment Pt would benefit from skilled OT to increase her independence in basic self care to allow her to safely return home to live with her . Discharge Recommendations Plan/Recommendations: Continue POC Treatment Plan/Plan of Care Patient would benefit from OT for education, treatment and training to promote independence in ADL's, mobility, safety and/or upper extremity function for ADL' s. Plan of Care: ADL Retraining, Functional Mobility, Group Exercise/Act as Ind ( education, exercise, activity tolerance, functional activities, memory), UE Funct Exercise/Act, UE Neuromus Re-Ed/Coord Treatment Duration: February 05, 2017 Visits Per Week: 10-11 Minutes/Day (M-F): 75-90 Minutes/Day (Sat/Simpson): PRN Agreement: Yes Rehab Potential: Good Time/GCodes Start Time: 09:30 Stop Time: 10:30 Total Time Billed (hr/min): 60 Billed Treatment Time visit, 60 minutes ADL DORIS LUU OT Jan 11, 2017 12:48
--- NOTE | 2017-01-11 12:50 | Progress Note (SOAP) ---
Subjective Subjective/Events-last exam Patient not voiding. Patient have a Mi catheter put in. Patient weak this morning Objective Exam Vital Signs Date Time Temp Pulse Resp B/P (MAP) Pulse Ox O2 Delivery O2 Flow Rate FiO2 01/11/17 09:00 Room Air 01/11/17 06:00 99.0 54 18 120/70 95 Room Air 01/10/17 21:00 Room Air 01/10/17 17:50 97.3 52 18 103/53 94 Room Air I & O 01/11/17 07:00 Intake Total 1310 ml Output Total 550 ml Balance 760 ml Capillary Refill : General Appearance: No Apparent Distress, WD/WN HEENT: Normal ENT Inspection Neck: Normal Inspection Respiratory: Chest Non Tender, Lungs Clear, No Accessory Muscle Use, No Respiratory Distress Cardiovascular: Regular Rate, Rhythm Results Lab Laboratory Tests 01/11/17 06:10: White Blood Count 2.6L, Red Blood Count 3.11L, Hemoglobin 9.6L, Hematocrit 31L, Mean Corpuscular Volume 99, Mean Corpuscular Hemoglobin 31, Mean Corpuscular Hemoglobin Concent 31L, Red Cell Distribution Width 17.3H, Platelet Count 160, Mean Platelet Volume 9.9, Prothrombin Time 27.2H, INR Comment 2.5H Assessment/Plan Assessment/Plan Assess & Plan/Chief Complaint Debility. A. fib. Herpes zoster. Patient now in sinus rhythm. Left foot drop. Weight loss 41 pounds. . Debility. Herpes zoster. 01/10/17.. . 01/11/17. Debility. A. fib. Herpes zoster. Patient unable to void. Patient have the Mi catheter put back in Clinical Quality Measures DVT/VTE Risk/Contraindication: Risk Factor Score Per Nursin RFS Level Per Nursing on Admit: 4+=Very High BOUBACAR MARR DO Jan 11, 2017 12:50 pm
--- NOTE | 2017-01-11 14:23 | PM & R (SOAP) Progress Note ---
Subjective Subjective/Events-last exam Patient was seen in her room this AM Discussed case with DR Pavon Patient min assist for transfers Objective Exam Last Set of Vital Signs Vital Signs Date Time Temp Pulse Resp B/P (MAP) Pulse Ox O2 Delivery O2 Flow Rate FiO2 01/11/17 09:00 Room Air 01/11/17 06:00 99.0 54 18 120/70 95 Capillary Refill : I&O Intake and Output 01/10/17 23:59 Intake Total 1460 ml Output Total 725 ml Balance 735 ml Intake Oral 1460 ml Output Urine Total 725 ml General: Alert, Oriented X3, Cooperative, No Acute Distress HEENT: Atraumatic, PERRLA, EOMI, Mucous Memb Moist/[place], Other (alopecia) Neck: Supple, No JVD Lungs: Clear to Auscultation Heart: Regular Rate Abdomen: Normal Bowel Sounds, Soft, No Tenderness Extremities: Other (trace edema) Neuro: Other (weakness and decreased sensation distal LLE) Results Lab Laboratory Tests 01/08/17 14:48: Prothrombin Time 34.2H, INR Comment 3.4H 01/09/17 05:55: Prothrombin Time 31.5H, INR Comment 3.1H 01/10/17 06:07: Prothrombin Time 26.0H, INR Comment 2.4H, White Blood Count 2.2L, Red Blood Count 3.10L, Hemoglobin 9.5L, Hematocrit 31L, Mean Corpuscular Volume 99, Mean Corpuscular Hemoglobin 31, Mean Corpuscular Hemoglobin Concent 31L, Red Cell Distribution Width 17.4H, Platelet Count 140, Mean Platelet Volume 10.2, Neutrophils (%) (Auto) 58, Lymphocytes (%) (Auto) 21, Monocytes (%) (Auto) 14H, Eosinophils (%) (Auto) 7, Basophils (%) (Auto) 1, Neutrophils # (Auto) 1.3L, Lymphocytes # (Auto) 0.4L, Monocytes # (Auto) 0.3, Eosinophils # (Auto) 0.2, Basophils # (Auto) 0.0, Sodium Level 144, Potassium Level 3.6, Chloride Level 108H, Carbon Dioxide Level 27, Anion Gap 9, Blood Urea Nitrogen 10, Creatinine 0.73, Estimat Glomerular Filtration Rate > 60, BUN/Creatinine Ratio 14, Glucose Level 80, Calcium Level 8.5, Total Bilirubin 0.3, Aspartate Amino Transf (AST/ SGOT) 40H, Alanine Aminotransferase (ALT/SGPT) 41, Alkaline Phosphatase 70, Total Protein 5.6L, Albumin 3.2 01/11/17 06:10: Prothrombin Time 27.2H, INR Comment 2.5H, White Blood Count 2.6L, Red Blood Count 3.11L, Hemoglobin 9.6L, Hematocrit 31L, Mean Corpuscular Volume 99, Mean Corpuscular Hemoglobin 31, Mean Corpuscular Hemoglobin Concent 31L, Red Cell Distribution Width 17.3H, Platelet Count 160, Mean Platelet Volume 9.9 Assessment/Plan Assessment Lumbar SS with Myelopathy/weakness and impaired sensation LLE Zoster treated Breast CA s/p lumpectomy and chemo with Peripheral neuropathy and weakness Urinary retention managed with Indwelling Mi catheter -DR Pavon following 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
--- NOTE | 2017-01-11 14:34 | Physical Therapy Daily Note ---
PT Daily Note-Current Subjective Pt agreeable to PT. Reports she slept instead of eating lunch. Transfers Functional [place] Measure 0=Not Assessed/NA 4=Minimal Assistance 1=Total Assistance 5=Supervision or Setup 2=Maximal Assistance 6=Modified [place] 3=Moderate Assistance 7=Complete IndependenceIRFPAI Quality Coding Scale 6 Independent with activity with or without an assistive device 5 Patient requires set up or clean up by helper. Patient completes activity by themselves 4 Supervision or touching assist (CGA). [place] provide cues , steadying assist 3 The helper provides less than half the effort to complete the activity 2 The helper provides more than half the effort to complete the activity 1 Dependent. The helper does all the effort to complete an activity 7 Patient refused to complete or attempt activity 9 The patient did not perform the activity before the current illness or injury 88 Not attempted due to Medical conditions or safety concerns Treatments Pt is able to transfer sup to sit EOB with SBA. sit to stand required 2 attempts and ambulated x 12 ft with fWW with close CGA. SPT to from NU Step with FWW with close CGA. Nu Step x 15 minutes to increase LE strength and functional act tolerance to promote indep with transfers and gait. Pt in chair post treatment with needs met . Assessment Current Status: Good Progress Functional transfers and gait are progressing slowly. Decreased coordination of the left LE noted and difficulty with accurate foot placement during gait. Requires clsoe CGA for safety. PT Short Term Goals Short Term Goals Time Frame: Jan 22, 2017 Gait (FIM): 2 Distance (FIM): 1=up to 49 ft Gait Assistive Device: FWW Wheelchair Distance: 200'x2 PT Fpc Goals Fpc Goals PT Fpc Goals Time Frame: February 05, 2017 Transfers (B,C,W/C) (FIM): 6 Sit to Lying (QC): 6 Lying-Sitting on Side/Bed(QC): 6 Sit to Stand (QC): 6 Rollin Roll Left to Right (QC): 6 [id number] Xfer(QC): 6 Car Transfer (QC): 5 Does the Patient Walk: No and Walking Goal IS indicated Gait (FIM): 6 Gait distance (FIM): 3=150 ft Walk 10 feet (QC): 6 Walk 10ft-Uneven Surface(QC): 6 Walk 50ft with 2 Turns (QC): 6 Walk 150 ft (QC): 6 Gait Assistive Device: FWW Does the Pt use WC or Scooter?: Yes Wheelchair (FIM): 6 Wheel 50 feet with 2 turns (QC: 6 Stairs (FIM): 2 # of Steps: 4 1 Step (curb) (QC): 4 4 Steps (QC): 4 12 Steps (QC): 9 Picking up an Object (QC): 4 PT Plan Problem List Problem List: Activity Tolerance, Functional Strength, Balance, Gait, Transfer Treatment/Plan Treatment Plan: Continue Plan of Care Treatment Plan: Bed Mobility, Education, Functional Activity Tony, Functional Strength, Group Therapy, Gait, Safety, Therapeutic Exercise, Transfers Treatment Duration: February 05, 2017 Visits Per Week: 10-15 Minutes/Day (M-F): 60-90 Minutes/Day (Sat/Simpson): prn Safety Risks/Education Patient Education: Safety Issues Teaching Recipient: Patient Teaching Methods: Discussion Response to Teaching: Return Demonstration Time/GCodes Time In: 1300 Time Out: 1330 Total Billed Treatment Time: 30 Total Billed Treatment visit EX 15 FA 15 CECILIA CARO PT Jan 11, 2017 14:34
--- NOTE | 2017-01-11 15:22 | Occupational Ther Daily Note ---
OT Current Status-Daily Note Subjective Pt seen in gym after PT, up in w/c. No pain mentioned Appearance Alert, cooperative Mental Status/Objective Functional [place] Measure 0=Not Assessed/NA 4=Minimal Assistance 1=Total Assistance 5=Supervision or Setup 2=Maximal Assistance 6=Modified [place] 3=Moderate Assistance 7=Complete [place] ADL-Treatment Functional [place] Measure 0=Not Assessed/NA 4=Minimal Assistance 1=Total Assistance 5=Supervision or Setup 2=Maximal Assistance 6=Modified [place] 3=Moderate Assistance 7=Complete IndependenceIRFPAI Quality Coding Scale 6 Independent with activity with or without an assistive device 5 Patient requires set up or clean up by helper. Patient completes activity by themselves 4 Supervision or touching assist (CGA). [place] provide cues , steadying assist 3 The helper provides less than half the effort to complete the activity 2 The helper provides more than half the effort to complete the activity 1 Dependent. The helper does all the effort to complete an activity 7 Patient refused to complete or attempt activity 9 The patient did not perform the activity before the current illness or injury 88 Not attempted due to Medical conditions or safety concerns Other Treatment Pt did 12 minutes bilat UE exercise with arm bike set at 20W resistance, with one brief break to get a drink. To help strengthen arms to help with transfers ( still min assist). She also did graded clothespins for hand strengthening to be able to fasten bra with zipper. Pt propelled her w/c back to her room and transferred to recliner with min assist, FWW, going to her R side. Pt left up in recliner, all needs met. Education OT Patient Education: Exercise program, Purpose of tx/functional activities, Transfer techniques Teaching Recipient: Patient Response to Teaching: Return Demonstration OT Short Term Goals Short Term Goals Time Frame: Jan 22, 2017 Toileting(FIM): 3 Toilet/Commode Transfer(FIM): 4 Additional Short Term Goals: 2-Verbalize Understanding, 3-ImproveStrength/Tony 1=Demonstrate adherence to instructed precautions during ADL tasks. 2=Patient will verbalize/demonstrate understanding of assistive devices/ modifications for ADL. 3=Patient will improve strength/tolerance for activity to enable patient to perform ADL's. OT Care Home Goals Care Home Goals Time Frame: February 05, 2017 Eating (FIM): 7 Eating (QC): 6 Groomin Oral Hygiene (QC): 6 Bathing(FIM): 6 Shower/Bathe Self (QC): 6 Upper Body Dressing(FIM): 6 Upper Body Dressing (QC): 6 Lower Body Dressing(FIM): 6 Lower Body Dressing (QC): 6 On/Off Footwear (QC): 6 Toileting(FIM): 6 Toileting Hygiene (QC): 6 Toilet/Commode Transfer(FIM): 6 Toilet/Commode Transfer (QC): 6 Shower Transfer(FIM): 6 Additional Goals: 2-Verbalize Understanding, 3-ImproveStrength/Tony 1=Demonstrate adherence to instructed precautions during ADL tasks. 2=Patient will verbalize/demonstrate understanding of assistive devices/ modifications for ADL. 3=Patient will improve strength/tolerance for activity to enable patient to perform ADL's. OT Education/Plan Problem List/Assessment Pt would benefit from skilled OT to increase her independence in basic self care to allow her to safely return home to live with her . Discharge Recommendations Plan/Recommendations: Continue POC Treatment Plan/Plan of Care Patient would benefit from OT for education, treatment and training to promote independence in ADL's, mobility, safety and/or upper extremity function for ADL' s. Plan of Care: ADL Retraining, Functional Mobility, Group Exercise/Act as Ind ( education, exercise, activity tolerance, functional activities, memory), UE Funct Exercise/Act, UE Neuromus Re-Ed/Coord Treatment Duration: February 05, 2017 Visits Per Week: 10-11 Minutes/Day (M-F): 75-90 Minutes/Day (Sat/Simpson): PRN Agreement: Yes Rehab Potential: Good Time/GCodes Start Time: 13:30 Stop Time: 14:00 Total Time Billed (hr/min): 30 Billed Treatment Time visit, 30 minutes exercise DORIS LUU OT Jan 11, 2017 15:22
[2017-01-11] MEDS: ALFUZOSIN HCL 10 MG TAB (UROXATRAL) PO SCH (18:22)
[2017-01-11] MEDS: warFARin 5 MG (COUMADIN) TAB PO SCH (18:22)
[2017-01-11 18:30] VITALS: BP 143/72
[2017-01-11] MEDS: traZODone 50 MG (DESYREL) TAB PO SCH (20:51)
[2017-01-11] MEDS: LIDODERM PATCH REMOVAL TP SCH (20:52)
[2017-01-12 05:00] VITALS: BP 118/68
--- NOTE | 2017-01-12 08:20 | Progress Note (SOAP) ---
Subjective Subjective/Events-last exam debility. Patient voices no complaints today. Patient seems content. Patient feels she's getting stronge Objective Exam Vital Signs Date Time Temp Pulse Resp B/P (MAP) Pulse Ox O2 Delivery O2 Flow Rate FiO2 01/12/17 05:00 97.3 56 16 118/68 96 Room Air 01/11/17 20:20 Room Air 01/11/17 18:30 97.2 54 14 143/72 97 Room Air 01/11/17 09:00 Room Air I & O 01/12/17 07:00 Intake Total 1400 ml Output Total 1210 ml Balance 190 ml Capillary Refill : General Appearance: No Apparent Distress, WD/WN HEENT: Normal ENT Inspection Neck: Normal Inspection Respiratory: Chest Non Tender, Lungs Clear, Normal Breath Sounds, No Accessory Muscle Use, No Respiratory Distress Cardiovascular: Regular Rate, Rhythm, No Murmur Assessment/Plan Assessment/Plan Assess & Plan/Chief Complaint Debility. A. fib. Herpes zoster. Patient now in sinus rhythm. Left foot drop. Weight loss 41 pounds. . Debility. Herpes zoster. 01/10/17.. . 01/11/17. Debility. A. fib. Herpes zoster. Patient unable to void. Patient have the Mi catheter put back in. . 01/12/17. Debility. Atrial fib. Herpes zoster Patient now in sinus rhythm Clinical Quality Measures DVT/VTE Risk/Contraindication: Risk Factor Score Per Nursin RFS Level Per Nursing on Admit: 4+=Very High BOUBACAR MARR DO Jan 12, 2017 08:20
--- NOTE | 2017-01-12 08:52 | PM & R (SOAP) Progress Note ---
Subjective Subjective/Events-last exam Patient was seen in her room this AM Patient SBA for transfers and CGA for ambulation with gait aide Objective Exam Last Set of Vital Signs Vital Signs Date Time Temp Pulse Resp B/P (MAP) Pulse Ox O2 Delivery O2 Flow Rate FiO2 01/12/17 05:00 97.3 56 16 118/68 96 Room Air Capillary Refill : I&O Intake and Output 01/12/17 00:00 Intake Total 950 ml Output Total 910 ml Balance 40 ml Intake Oral 950 ml Output Urine Total 910 ml General: Alert, Oriented X3, Cooperative, No Acute Distress HEENT: Atraumatic, PERRLA, EOMI, Mucous Memb Moist/[place], Other (alopecia) Neck: Supple, No JVD Lungs: Clear to Auscultation Heart: Regular Rate Abdomen: Normal Bowel Sounds, Soft, No Tenderness Extremities: Other (trace edema) Neuro: Other (weakness and decreased sensation distal LLE) Results Lab Laboratory Tests 01/10/17 06:07: White Blood Count 2.2L, Red Blood Count 3.10L, Hemoglobin 9.5L, Hematocrit 31L, Mean Corpuscular Volume 99, Mean Corpuscular Hemoglobin 31, Mean Corpuscular Hemoglobin Concent 31L, Red Cell Distribution Width 17.4H, Platelet Count 140, Mean Platelet Volume 10.2, Neutrophils (%) (Auto) 58, Lymphocytes (%) (Auto) 21 , Monocytes (%) (Auto) 14H, Eosinophils (%) (Auto) 7, Basophils (%) (Auto) 1, Neutrophils # (Auto) 1.3L, Lymphocytes # (Auto) 0.4L, Monocytes # (Auto) 0.3, Eosinophils # (Auto) 0.2, Basophils # (Auto) 0.0, Prothrombin Time 26.0H, INR Comment 2.4H, Sodium Level 144, Potassium Level 3.6, Chloride Level 108H, Carbon Dioxide Level 27, Anion Gap 9, Blood Urea Nitrogen 10, Creatinine 0.73, Estimat Glomerular Filtration Rate > 60, BUN/Creatinine Ratio 14, Glucose Level 80, Calcium Level 8.5, Total Bilirubin 0.3, Aspartate Amino Transf (AST/SGOT) 40H, Alanine Aminotransferase (ALT/SGPT) 41, Alkaline Phosphatase 70, Total Protein 5.6L, Albumin 3.2 01/11/17 06:10: White Blood Count 2.6L, Red Blood Count 3.11L, Hemoglobin 9.6L, Hematocrit 31L, Mean Corpuscular Volume 99, Mean Corpuscular Hemoglobin 31, Mean Corpuscular Hemoglobin Concent 31L, Red Cell Distribution Width 17.3H, Platelet Count 160, Mean Platelet Volume 9.9, Prothrombin Time 27.2H, INR Comment 2.5H Assessment/Plan Assessment Lumbar SS with Myelopathy/weakness and impaired sensation LLE Zoster treated Breast CA s/p lumpectomy and chemo with Peripheral neuropathy and weakness Urinary retention managed with Indwelling Mi catheter -DR Pavon following 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
[2017-01-12 10:36] VITALS: BP 95/53
[2017-01-12] MEDS: DULoxetine 30 MG (CYMBALTA) CAP PO SCH (10:38)
[2017-01-12] MEDS: LIDOCAINE (LIDODERM) 5% PATCH TOP SCH (10:39)
[2017-01-12] MEDS: AMIODARONE 200 MG (CORDARONE) TAB PO SCH ×2 (10:39→20:15)
[2017-01-12] MEDS: PREGABALIN 100 MG (LYRICA) CAPSULE PO SCH ×2 (10:39→20:15)
[2017-01-12] MEDS: DIGOXIN 0.125 MG (LANOXIN) TAB PO SCH (10:39)
--- NOTE | 2017-01-12 10:49 | Occupational Ther Daily Note ---
OT Current Status-Daily Note Subjective Pt seen in room, up in bed, agreeable to OT. Pt has requested ADLs be done prior to PT so that her legs are not too fatigued for shower transfers. No pain mentioned. Appearance Alert, cooperative Mental Status/Objective Functional [place] Measure 0=Not Assessed/NA 4=Minimal Assistance 1=Total Assistance 5=Supervision or Setup 2=Maximal Assistance 6=Modified [place] 3=Moderate Assistance 7=Complete [place] ADL-Treatment Cues needed to lock w/c. Marrufo catheter back in. Functional [place] Measure 0=Not Assessed/NA 4=Minimal Assistance 1=Total Assistance 5=Supervision or Setup 2=Maximal Assistance 6=Modified [place] 3=Moderate Assistance 7=Complete IndependenceIRFPAI Quality Coding Scale 6 Independent with activity with or without an assistive device 5 Patient requires set up or clean up by helper. Patient completes activity by themselves 4 Supervision or touching assist (CGA). [place] provide cues , steadying assist 3 The helper provides less than half the effort to complete the activity 2 The helper provides more than half the effort to complete the activity 1 Dependent. The helper does all the effort to complete an activity 7 Patient refused to complete or attempt activity 9 The patient did not perform the activity before the current illness or injury 88 Not attempted due to Medical conditions or safety concerns Grooming (FIM): 6 (Pt brushed teeth, w/c level) Bathing (FIM): 5 (Pt was able to wash and dry all parts, seated on shower bench , grab bars, hand held shower, long handled sponge. ) Upper Body (FIM): 5 (Setup. ABle to hook regular bra in front and turn it but couldn't hook it in the back. Donned top without assist.) Lower Body Dressing (FIM): 4 (Doffed and donned panties and socks with dressing stick, min assist and slight help to get pants over hips. Pt educ to dress L leg first. Pt able to get socks on with soft sock aid with just verbal reminder on use. More difficulty coming to stand, min assist to come to stand. Once she was up, balance Ok with FWW to manage clothing. Some skilled cues for problem-solving getting marrufo bag through pants) Transfers (B, C, W/C) (FIM): 4 (CGA, from bed to w/c, to the right, no AFO, FWW. First transfer of the day) Shower Transfer(FIM): 3 (Min assist transferring to R from w/c to internist bench but mod assist transferring to L after shower (due in part to fatigue). Grab bars, shower bench. May benefit from trying transfer board) Pt fatigued after shower and dressing. Left up in w/c, all needs met. Education OT Patient Education: Modified ADL techniques, Progress toward Goal/Update tx plan, Purpose of tx/functional activities, Safety issues, Transfer techniques, Use of adapted equipment Teaching Recipient: Patient Teaching Methods: Demonstration, Discussion Response to Teaching: Verbalize Understanding, Return Demonstration, Reinforcement Needed OT Short Term Goals Short Term Goals Time Frame: Jan 22, 2017 Toileting(FIM): 3 Toilet/Commode Transfer(FIM): 4 Additional Short Term Goals: 2-Verbalize Understanding, 3-ImproveStrength/Tony 1=Demonstrate adherence to instructed precautions during ADL tasks. 2=Patient will verbalize/demonstrate understanding of assistive devices/ modifications for ADL. 3=Patient will improve strength/tolerance for activity to enable patient to perform ADL's. OT Mcfp Goals Mcfp Goals Time Frame: February 05, 2017 Eating (FIM): 7 Eating (QC): 6 Groomin Oral Hygiene (QC): 6 Bathing(FIM): 6 Shower/Bathe Self (QC): 6 Upper Body Dressing(FIM): 6 Upper Body Dressing (QC): 6 Lower Body Dressing(FIM): 6 Lower Body Dressing (QC): 6 On/Off Footwear (QC): 6 Toileting(FIM): 6 Toileting Hygiene (QC): 6 Toilet/Commode Transfer(FIM): 6 Toilet/Commode Transfer (QC): 6 Shower Transfer(FIM): 6 Additional Goals: 2-Verbalize Understanding, 3-ImproveStrength/Tony 1=Demonstrate adherence to instructed precautions during ADL tasks. 2=Patient will verbalize/demonstrate understanding of assistive devices/ modifications for ADL. 3=Patient will improve strength/tolerance for activity to enable patient to perform ADL's. OT Education/Plan Problem List/Assessment Pt would benefit from skilled OT to increase her independence in basic self care to allow her to safely return home to live with her . Discharge Recommendations Plan/Recommendations: Continue POC Treatment Plan/Plan of Care Patient would benefit from OT for education, treatment and training to promote independence in ADL's, mobility, safety and/or upper extremity function for ADL' s. Plan of Care: ADL Retraining, Functional Mobility, Group Exercise/Act as Ind ( education, exercise, activity tolerance, functional activities, memory), UE Funct Exercise/Act, UE Neuromus Re-Ed/Coord Treatment Duration: February 05, 2017 Visits Per Week: 10-11 Minutes/Day (M-F): 75-90 Minutes/Day (Sat/Simpson): PRN Agreement: Yes Rehab Potential: Good Time/GCodes Start Time: 08:30 Stop Time: 09:30 Total Time Billed (hr/min): 60 Billed Treatment Time visit, 60 minutes ADL DORIS LUU OT Jan 12, 2017 10:49
--- NOTE | 2017-01-12 11:03 | Physical Therapy Daily Note ---
PT Daily Note-Current Subjective Patient in wheelchair ready for PT, no complaints of pain but patient states she is very tired and has been pretty light headed. Vitals taken and O2 95%, HR 71bpm, BP 81/57. Blood pressure is kind of low, will progress with PT slowly and at decreased intensity. Appearance Patient BTB post tx with nurse call, phone, tray, all needs met. Mental Status Patient Orientation: Normal For Age Transfers Functional [place] Measure 0=Not Assessed/NA 4=Minimal Assistance 1=Total Assistance 5=Supervision or Setup 2=Maximal Assistance 6=Modified [place] 3=Moderate Assistance 7=Complete IndependenceIRFPAI Quality Coding Scale 6 Independent with activity with or without an assistive device 5 Patient requires set up or clean up by helper. Patient completes activity by themselves 4 Supervision or touching assist (CGA). [place] provide cues , steadying assist 3 The helper provides less than half the effort to complete the activity 2 The helper provides more than half the effort to complete the activity 1 Dependent. The helper does all the effort to complete an activity 7 Patient refused to complete or attempt activity 9 The patient did not perform the activity before the current illness or injury 88 Not attempted due to Medical conditions or safety concerns Transfers (B, C, W/C) (FIM): 4 Scootin Rollin Supine to/from Sit: 5 Sit to/from Stand: 4 Bed to/from Chair: 4 CGA for transfers, SBA for bed mobility. Wheelchair Training Does the Pt Use a Wheelchair?: Yes Wheelchair (FIM): 6 Distance: 150'x2 Type of Wheelchair: Manual Exercises Seated Therapy Exercises: Ankle pumps, Hip flexion, Hip abd/add Seated Reps: 20 LAQ alternating for 5 min NuStep Minutes: 15 NuStep Workload: 4 Treatments bed mobility and transfers, functional strengthening, wheelchair mobility Assessment Current Status: Poor Progress No change in mobility, patient had dizziness with tx but did not increase during treatment. Patient needed many rest breaks this morning during PT. PT Short Term Goals Short Term Goals Time Frame: Jan 22, 2017 Gait (FIM): 2 Distance (FIM): 1=up to 49 ft Gait Assistive Device: FWW Wheelchair Distance: 200'x2 PT Fci Goals Bridge Instructor Goals PT Bridge Instructor Goals Time Frame: February 05, 2017 Transfers (B,C,W/C) (FIM): 6 Sit to Lying (QC): 6 Lying-Sitting on Side/Bed(QC): 6 Sit to Stand (QC): 6 Rollin Roll Left to Right (QC): 6 Chair/Fvd-gr-Dfjmf Xfer(QC): 6 Car Transfer (QC): 5 Does the Patient Walk: No and Walking Goal IS indicated Gait (FIM): 6 Gait distance (FIM): 3=150 ft Walk 10 feet (QC): 6 Walk 10ft-Uneven Surface(QC): 6 Walk 50ft with 2 Turns (QC): 6 Walk 150 ft (QC): 6 Gait Assistive Device: FWW Does the Pt use WC or Scooter?: Yes Wheelchair (FIM): 6 Wheel 50 feet with 2 turns (QC: 6 Stairs (FIM): 2 # of Steps: 4 1 Step (curb) (QC): 4 4 Steps (QC): 4 12 Steps (QC): 9 Picking up an Object (QC): 4 PT Plan Problem List Problem List: Activity Tolerance, Functional Strength, Safety, Balance, Gait, Transfer, Bed Mobility Treatment/Plan Treatment Plan: Continue Plan of Care Treatment Plan: Bed Mobility, Education, Functional Activity Tony, Functional Strength, Group Therapy, Gait, Safety, Therapeutic Exercise, Transfers Treatment Duration: February 05, 2017 Visits Per Week: 10-15 Minutes/Day (M-F): 60-90 Minutes/Day (Sat/Simpson): prn Safety Risks/Education Patient Education: Transfer Techniques, Correct Positioning, W/C Management, Safety Issues Teaching Recipient: Patient Teaching Methods: Demonstration, Discussion Response to Teaching: Reinforcement Needed Time/GCodes Time In: 1000 Time Out: 1100 Total Billed Treatment Time: 60 Total Billed Treatment 1 visit WC 15 min EX 30 min FA 15 min LALO VILLEGAS PT Jan 12, 2017 11:03
[2017-01-12 12:15] VITALS: BP 106/52
--- NOTE | 2017-01-12 14:38 | Therapy Group Daily Note ---
Therapy Daily Group Note Other/Notes Each patient participated in group therapy this afternoon. Every patient was transported in a wheelchair or ambulated to the common area of the rehab floor. Then, each patient had to introduce themselves and state where they were from and recall a specific memory from their past. Then each patient participated in activities that involve social interaction, digital manipulation, manual coordination, memory, problem solving, and critical thinking. Finally, each patient was transported back to their room either by wheelchair or ambulation and placed in bed or chair with nurse call, phone, and tray within reach. Start Time: 13:00 Stop Time: 14:20 Total Billed Treatment Time: 80 Total Billed Treatment 1 visit GRP 80' LALO VILLEGAS PT Jan 12, 2017 14:38
[2017-01-12] MEDS: ALFUZOSIN HCL 10 MG TAB (UROXATRAL) PO SCH (17:52)
[2017-01-12] MEDS: warFARin 5 MG (COUMADIN) TAB PO SCH (17:52)
[2017-01-12] MEDS: oxyCODONE/APAP 5/325MG (PERCOCET 5) TABLET PO PRN (17:54)
[2017-01-12 18:00] VITALS: BP 102/59
[2017-01-12] MEDS: traZODone 50 MG (DESYREL) TAB PO SCH (20:15)
[2017-01-12] MEDS: LIDODERM PATCH REMOVAL TP SCH (20:15)
[2017-01-12] MEDS: DOCUSATE SODIUM 100 MG (COLACE) CAP PO SCH (20:15)
[2017-01-13 06:30] VITALS: BP 119/70
--- NOTE | 2017-01-13 08:50 | Physical Therapy Daily Note ---
PT Daily Note-Current Subjective Agreeable to PT. no complaints. Transfers Functional [place] Measure 0=Not Assessed/NA 4=Minimal Assistance 1=Total Assistance 5=Supervision or Setup 2=Maximal Assistance 6=Modified [place] 3=Moderate Assistance 7=Complete IndependenceIRFPAI Quality Coding Scale 6 Independent with activity with or without an assistive device 5 Patient requires set up or clean up by helper. Patient completes activity by themselves 4 Supervision or touching assist (CGA). [place] provide cues , steadying assist 3 The helper provides less than half the effort to complete the activity 2 The helper provides more than half the effort to complete the activity 1 Dependent. The helper does all the effort to complete an activity 7 Patient refused to complete or attempt activity 9 The patient did not perform the activity before the current illness or injury 88 Not attempted due to Medical conditions or safety concerns Treatments Sup to sit EOB with SBA. Sit to stand all attempts with CG-min assist and skilled cues for hand placement; pt requires skilled cuing as well to reach back for chair when sitting. Gait x 30 ft 20 ft and 15 ft. Again x 7 ft with FWW with clsoe CGA and pt looks at feet during gait due to difficulty with placement of left LE with gait. Pt in recliner post treatment with needs met. Assessment Current Status: Good Progress Functional gait and transfers improving. Pt making gains towards established goals. PT Short Term Goals Short Term Goals Time Frame: Jan 22, 2017 Gait (FIM): 2 Distance (FIM): 1=up to 49 ft Gait Assistive Device: FWW Wheelchair Distance: 150'x2 PT Foam Rubber Molder Goals Custodial Goals PT Foam Rubber Molder Goals Time Frame: February 05, 2017 Transfers (B,C,W/C) (FIM): 6 Sit to Lying (QC): 6 Lying-Sitting on Side/Bed(QC): 6 Sit to Stand (QC): 6 Rollin Roll Left to Right (QC): 6 Chair/Gfb-ky-Rprwg Xfer(QC): 6 Car Transfer (QC): 5 Does the Patient Walk: No and Walking Goal IS indicated Gait (FIM): 6 Gait distance (FIM): 3=150 ft Walk 10 feet (QC): 6 Walk 10ft-Uneven Surface(QC): 6 Walk 50ft with 2 Turns (QC): 6 Walk 150 ft (QC): 6 Gait Assistive Device: FWW Does the Pt use WC or Scooter?: Yes Wheelchair (FIM): 6 Wheel 50 feet with 2 turns (QC: 6 Stairs (FIM): 2 # of Steps: 4 1 Step (curb) (QC): 4 4 Steps (QC): 4 12 Steps (QC): 9 Picking up an Object (QC): 4 PT Plan Problem List Problem List: Activity Tolerance, Functional Strength, Safety Treatment/Plan Treatment Plan: Continue Plan of Care Treatment Plan: Bed Mobility, Education, Functional Activity Tony, Functional Strength, Group Therapy, Gait, Safety, Therapeutic Exercise, Transfers Treatment Duration: February 05, 2017 Visits Per Week: 10-15 Minutes/Day (M-F): 60-90 Minutes/Day (Sat/Simpson): prn Safety Risks/Education Patient Education: Transfer Techniques, Safety Issues Teaching Recipient: Patient Teaching Methods: Demonstration, Discussion Response to Teaching: Reinforcement Needed Time/GCodes Time In: 800 Time Out: 825 Total Billed Treatment Time: 25 Total Billed Treatment visit GT 25 CECILIA CARO PT Jan 13, 2017 08:50
[2017-01-13] MEDS: AMIODARONE 200 MG (CORDARONE) TAB PO SCH ×2 (09:00→20:49)
[2017-01-13] MEDS: DIGOXIN 0.125 MG (LANOXIN) TAB PO SCH (09:00)
[2017-01-13] MEDS: LIDOCAINE (LIDODERM) 5% PATCH TOP SCH (09:23)
[2017-01-13] MEDS: LIDODERM PATCH REMOVAL TP SCH (09:23)
[2017-01-13] MEDS: PREGABALIN 100 MG (LYRICA) CAPSULE PO SCH ×2 (09:24→20:48)
[2017-01-13] MEDS: DOCUSATE SODIUM 100 MG (COLACE) CAP PO SCH ×2 (09:24→20:49)
[2017-01-13] MEDS: DULoxetine 30 MG (CYMBALTA) CAP PO SCH (09:24)
[2017-01-13] MEDS: ALFUZOSIN HCL 10 MG TAB (UROXATRAL) PO SCH (17:31)
[2017-01-13] MEDS: warFARin 5 MG (COUMADIN) TAB PO SCH (17:31)
[2017-01-13 17:50] VITALS: BP 125/76
[2017-01-13] MEDS: traZODone 50 MG (DESYREL) TAB PO SCH (20:48)
[2017-01-13] MEDS: oxyCODONE/APAP 5/325MG (PERCOCET 5) TABLET PO PRN (22:30)
[2017-01-14] MEDS: oxyCODONE/APAP 5/325MG (PERCOCET 5) TABLET PO PRN (04:40)
[2017-01-14 05:45] VITALS: BP 120/72
[2017-01-14] MEDS: PREGABALIN 100 MG (LYRICA) CAPSULE PO SCH ×2 (09:48→20:27)
[2017-01-14] MEDS: DULoxetine 30 MG (CYMBALTA) CAP PO SCH (09:48)
[2017-01-14] MEDS: DOCUSATE SODIUM 100 MG (COLACE) CAP PO SCH ×2 (09:48→20:27)
[2017-01-14] MEDS: DIGOXIN 0.125 MG (LANOXIN) TAB PO SCH (09:49)
[2017-01-14] MEDS: AMIODARONE 200 MG (CORDARONE) TAB PO SCH ×2 (09:49→20:27)
[2017-01-14] MEDS: LIDOCAINE (LIDODERM) 5% PATCH TOP SCH (09:49)
[2017-01-14] MEDS: warFARin 5 MG (COUMADIN) TAB PO SCH (17:26)
[2017-01-14] MEDS: ALFUZOSIN HCL 10 MG TAB (UROXATRAL) PO SCH (17:26)
[2017-01-14 17:32] VITALS: BP 133/77
--- NOTE | 2017-01-14 19:43 | Diagnostic Imaging Report ---
INDICATION: Fall. Right knee pain Two views of the right knee show no fracture, dislocation or other acute bony abnormality. There are tricompartmental degenerative changes present which are most pronounced at the patellofemoral compartment. There is a joint effusion. IMPRESSION: There are degenerative changes present. No acute bony abnormality is seen. Dictated by: Dictated on workstation # [id number]
[2017-01-14] MEDS: traZODone 50 MG (DESYREL) TAB PO SCH (20:27)
[2017-01-14] MEDS: LIDODERM PATCH REMOVAL TP SCH (20:51)
[2017-01-15] MEDS: oxyCODONE/APAP 5/325MG (PERCOCET 5) TABLET PO PRN ×2 (02:39→09:27)
[2017-01-15] MEDS: ONDANSETRON 4 MG (ZOFRAN) ORAL DISSOLVE TAB PO PRN (03:31)
[2017-01-15 06:10] VITALS: BP 106/64
--- NOTE | 2017-01-15 08:25 | Progress Note (SOAP) ---
Subjective Subjective/Events-last exam debility. Knee pain x-ray shows degenerative arthritis No acute process. Shingles. Breast cancer with lumpectomy. Atrial fibrillation history patient sounds like she is in sinus Objective Exam Vital Signs Date Time Temp Pulse Resp B/P (MAP) Pulse Ox O2 Delivery O2 Flow Rate FiO2 01/15/17 06:10 96.8 57 16 106/64 95 NIV/CPAP 01/14/17 20:50 Room Air 01/14/17 17:32 60 16 133/77 95 Room Air I & O 01/15/17 06:59 Intake Total 820 ml Output Total 700 ml Balance 120 ml Capillary Refill : General Appearance: No Apparent Distress, WD/WN HEENT: Normal ENT Inspection Neck: Full Range of Motion, Normal Inspection Respiratory: Chest Non Tender, Lungs Clear, Normal Breath Sounds, No Accessory Muscle Use, No Respiratory Distress Cardiovascular: Regular Rate, Rhythm, Normal Peripheral Pulses Assessment/Plan Assessment/Plan Assess & Plan/Chief Complaint Debility. A. fib. Herpes zoster. Patient now in sinus rhythm. Left foot drop. Weight loss 41 pounds. . Debility. Herpes zoster. 01/10/17.. . 01/11/17. Debility. A. fib. Herpes zoster. Patient unable to void. Patient have the Mi catheter put back in. . 01/12/17. Debility. Atrial fib. Herpes zoster Patient now in sinus rhythm. . 01/15/17. Debility. A. fib history. Knee pain. X-ray shows arthritis of knee and no acute process. Clinical Quality Measures DVT/VTE Risk/Contraindication: Risk Factor Score Per Nursin RFS Level Per Nursing on Admit: 4+=Very High BOUBACAR MARR DO Jan 15, 2017 08:25
[2017-01-15] MEDS: PREGABALIN 100 MG (LYRICA) CAPSULE PO SCH ×2 (08:43→20:31)
[2017-01-15] MEDS: DOCUSATE SODIUM 100 MG (COLACE) CAP PO SCH ×2 (08:43→20:31)
[2017-01-15] MEDS: DULoxetine 30 MG (CYMBALTA) CAP PO SCH (08:43)
[2017-01-15] MEDS: AMIODARONE 200 MG (CORDARONE) TAB PO SCH ×2 (08:44→20:31)
--- NOTE | 2017-01-15 09:10 | Progress Note-Urology ---
Progress Note-Urology Progress Notes/Assess & Plan Progress/Assessment & Plan TOLERATES FLOMAX WELL, TOV TODAY Final Diagnosis URINE RETENTION SELENE HUBBARD MD Jan 15, 2017 9:10 am
--- NOTE | 2017-01-15 09:11 | Physical Therapy Daily Note ---
PT Daily Note-Current Subjective Patient in bed pre tx, agrees to PT, will need to get dressed. Patient states she had a controlled fall over the weekend and her right knee bent more than it usually does and is very sore today, apparently she was walking or transferring in the bathroom and her right knee collapsed. Pain 5/10. Patient asks if we could take it easy this morning due to her knee. Appearance Patient in wheelchair post tx with nurse call, phone, tray, all needs met. Mental Status Patient Orientation: Normal For Age Attachments: Mi Catheter Transfers Functional [place] Measure 0=Not Assessed/NA 4=Minimal Assistance 1=Total Assistance 5=Supervision or Setup 2=Maximal Assistance 6=Modified [place] 3=Moderate Assistance 7=Complete IndependenceIRFPAI Quality Coding Scale 6 Independent with activity with or without an assistive device 5 Patient requires set up or clean up by helper. Patient completes activity by themselves 4 Supervision or touching assist (CGA). [place] provide cues , steadying assist 3 The helper provides less than half the effort to complete the activity 2 The helper provides more than half the effort to complete the activity 1 Dependent. The helper does all the effort to complete an activity 7 Patient refused to complete or attempt activity 9 The patient did not perform the activity before the current illness or injury 88 Not attempted due to Medical conditions or safety concerns Transfers (B, C, W/C) (FIM): 4 Scootin Rollin Supine to/from Sit: 5 Sit to/from Stand: 4 Bed to/from Chair: 4 transfers CGA, patient much more slow and anxious with transfers Wheelchair Training Does the Pt Use a Wheelchair?: Yes Wheelchair (FIM): 5 Distance: 150'x2 Wheelchair Level of Assist: 5 Type of Wheelchair: Manual very slow, uses both arms on wheels, occasionally will catch an obstacle with her wheel but can correct herself Exercises Seated Therapy Exercises: Ankle pumps, Hip flexion, Hip abd/add Seated Reps: 20 LAQ alternating for 5 min NuStep Minutes: 15 NuStep Workload: 5 Treatments dressing, bed mobility and transfers, functional strengthening, wheelchair mobility Assessment Current Status: Fair Progress decreased intensity this morning due to fall and right knee pain PT Short Term Goals Short Term Goals Time Frame: Jan 22, 2017 Gait (FIM): 2 Distance (FIM): 1=up to 49 ft Gait Assistive Device: FWW Wheelchair Distance: 150'x2 PT Longterm Goals Longterm Goals PT Longterm Goals Time Frame: February 05, 2017 Transfers (B,C,W/C) (FIM): 6 Sit to Lying (QC): 6 Lying-Sitting on Side/Bed(QC): 6 Sit to Stand (QC): 6 Rollin Roll Left to Right (QC): 6 Chair/Vva-gi-Gswbd Xfer(QC): 6 Car Transfer (QC): 5 Does the Patient Walk: No and Walking Goal IS indicated Gait (FIM): 6 Gait distance (FIM): 3=150 ft Walk 10 feet (QC): 6 Walk 10ft-Uneven Surface(QC): 6 Walk 50ft with 2 Turns (QC): 6 Walk 150 ft (QC): 6 Gait Assistive Device: FWW Does the Pt use WC or Scooter?: Yes Wheelchair (FIM): 6 Wheel 50 feet with 2 turns (QC: 6 Stairs (FIM): 2 # of Steps: 4 1 Step (curb) (QC): 4 4 Steps (QC): 4 12 Steps (QC): 9 Picking up an Object (QC): 4 PT Plan Problem List Problem List: Activity Tolerance, Functional Strength, Safety, Balance, Gait, Transfer, Bed Mobility, ROM Treatment/Plan Treatment Plan: Continue Plan of Care Treatment Plan: Bed Mobility, Education, Functional Activity Tony, Functional Strength, Group Therapy, Gait, Safety, Therapeutic Exercise, Transfers Treatment Duration: February 05, 2017 Visits Per Week: 10-15 Minutes/Day (M-F): 60-90 Minutes/Day (Sat/Simpson): prn Safety Risks/Education Patient Education: Transfer Techniques, Correct Positioning, W/C Management, Safety Issues Teaching Recipient: Patient Teaching Methods: Demonstration, Discussion Response to Teaching: Reinforcement Needed Time/GCodes Time In: 810 Time Out: 910 Total Billed Treatment Time: 60 Total Billed Treatment 1 visit [facility] 15 min FA 15 min EX 30 min LALO VILLEGAS PT Jan 15, 2017 09:11
[2017-01-15 09:16] VITALS: BP 99/62
[2017-01-15] MEDS: LIDOCAINE (LIDODERM) 5% PATCH TOP SCH ×2 (09:45→09:55)
[2017-01-15] MEDS: DIGOXIN 0.125 MG (LANOXIN) TAB PO SCH (09:56)
[2017-01-15] MEDS: FUROSEMIDE 20 MG (LASIX) TAB PO PRN (10:42)
[2017-01-15] MEDS: KCL 10 MEQ TAB (MICRO K) PO PRN (10:42)
[2017-01-15 10:46] VITALS: BP 107/64
--- NOTE | 2017-01-15 11:39 | Occupational Ther Daily Note ---
OT Current Status-Daily Note Subjective Pt seen in room, up in w/c after PT, agreeable to OT. Pt reported she was lowered to the floor this weekend and her R knee hurts at times - she doesn't trust it yet. Pain reported 4 - in L knee and foot. Appearance Alert, cooperative Mental Status/Objective Functional [place] Measure 0=Not Assessed/NA 4=Minimal Assistance 1=Total Assistance 5=Supervision or Setup 2=Maximal Assistance 6=Modified [place] 3=Moderate Assistance 7=Complete [place] ADL-Treatment Occasional cues to lock w/c brakes. Transfer from w/c to shower to her R was with min assist and grab bars - difficulty weight shifting and picking up feet. Tried sliding board to transfer back to w/c from shower bench and she did it with just education and SBA. Able to stand to pull pants up, with FWW, but only able to turn one hand loose at a time and reluctantly due to inability to trust R knee. Trimmed about 1" end off AFO - it slid much easier into her shoe and may assist with increased independence with dressing. Functional [place] Measure 0=Not Assessed/NA 4=Minimal Assistance 1=Total Assistance 5=Supervision or Setup 2=Maximal Assistance 6=Modified [place] 3=Moderate Assistance 7=Complete IndependenceIRFPAI Quality Coding Scale 6 Independent with activity with or without an assistive device 5 Patient requires set up or clean up by helper. Patient completes activity by themselves 4 Supervision or touching assist (CGA). [place] provide cues , steadying assist 3 The helper provides less than half the effort to complete the activity 2 The helper provides more than half the effort to complete the activity 1 Dependent. The helper does all the effort to complete an activity 7 Patient refused to complete or attempt activity 9 The patient did not perform the activity before the current illness or injury 88 Not attempted due to Medical conditions or safety concerns Grooming (FIM): 6 (Brushed teeth on her own. washed face and hands in shower. No hair to brush) Bathing (FIM): 6 (Turned water on and off and retrieved towels. Washed and dried all parts. Shower bench, grab bars, hand held shower) Upper Body (FIM): 5 (Setup. ) Lower Body Dressing (FIM): 4 (Just a little help needed to get pants over hips due to R knee. Able to get socks off with dressing stick and donned with hard sock aid (seemed to work better than soft one today). Able to get R shoee off and on and tie lace. A little help experimenting with putting AFO on before shoe vs putting them on as one unit. Stood with FWW with CGA) Transfers (B, C, W/C) (FIM): 4 Shower Transfer(FIM): 4 (see note above) Pt was left up in w/c to brush her teeth, all needs met. Education OT Patient Education: Modified ADL techniques, Progress toward Goal/Update tx plan, Purpose of tx/functional activities, Transfer techniques, Use of adapted equipment Teaching Recipient: Patient Teaching Methods: Demonstration, Discussion Response to Teaching: Verbalize Understanding, Return Demonstration, Reinforcement Needed OT Short Term Goals Short Term Goals Time Frame: Jan 22, 2017 Toileting(FIM): 3 Toilet/Commode Transfer(FIM): 4 Additional Short Term Goals: 2-Verbalize Understanding, 3-ImproveStrength/Tony 1=Demonstrate adherence to instructed precautions during ADL tasks. 2=Patient will verbalize/demonstrate understanding of assistive devices/ modifications for ADL. 3=Patient will improve strength/tolerance for activity to enable patient to perform ADL's. OT Shelter Goals Shelter Goals Time Frame: February 05, 2017 Eating (FIM): 7 Eating (QC): 6 Groomin Oral Hygiene (QC): 6 Bathing(FIM): 6 Shower/Bathe Self (QC): 6 Upper Body Dressing(FIM): 6 Upper Body Dressing (QC): 6 Lower Body Dressing(FIM): 6 Lower Body Dressing (QC): 6 On/Off Footwear (QC): 6 Toileting(FIM): 6 Toileting Hygiene (QC): 6 Toilet/Commode Transfer(FIM): 6 Toilet/Commode Transfer (QC): 6 Shower Transfer(FIM): 6 Additional Goals: 2-Verbalize Understanding, 3-ImproveStrength/Tony 1=Demonstrate adherence to instructed precautions during ADL tasks. 2=Patient will verbalize/demonstrate understanding of assistive devices/ modifications for ADL. 3=Patient will improve strength/tolerance for activity to enable patient to perform ADL's. OT Education/Plan Problem List/Assessment Pt would benefit from skilled OT to increase her independence in basic self care to allow her to safely return home to live with her . Discharge Recommendations Plan/Recommendations: Continue POC Treatment Plan/Plan of Care Patient would benefit from OT for education, treatment and training to promote independence in ADL's, mobility, safety and/or upper extremity function for ADL' s. Plan of Care: ADL Retraining, Functional Mobility, Group Exercise/Act as Ind ( education, exercise, activity tolerance, functional activities, memory), UE Funct Exercise/Act, UE Neuromus Re-Ed/Coord Treatment Duration: February 05, 2017 Visits Per Week: 10-11 Minutes/Day (M-F): 75-90 Minutes/Day (Sat/Simpson): PRN Agreement: Yes Rehab Potential: Good Time/GCodes Start Time: 09:15 Stop Time: 10:20 Total Time Billed (hr/min): 65 Billed Treatment Time visit, 65 minutes DORIS STONE OT Jan 15, 2017 11:39
--- NOTE | 2017-01-15 14:25 | Therapy Group Daily Note ---
Therapy Daily Group Note Patient Education Topic Home Safety, Fall Prevention Other/Notes Pt was an active participant in OT group. She introduced herself for socialization by sharing her favorite spring flower. She contributed to the discussion/education on fall prevention and, by the end of the group, was able to identify changes she had made in her bathroom at home to prevnet falls. She propelled herself back to her room and transferred to bed min assist. pt left up in bed, all needs met. Start Time: 13:00 Stop Time: 14:10 Total Billed Treatment Time: 70 Total Billed Treatment visit, 70 minutes group DORIS LUU OT Jan 15, 2017 14:25
[2017-01-15 15:04] LABS: INR 3.5 (0.8-1.4)
[2017-01-15] MEDS: warFARin 5 MG (COUMADIN) TAB PO SCH (15:25)
[2017-01-15 17:11] VITALS: BP 115/66
[2017-01-15] MEDS: ALFUZOSIN HCL 10 MG TAB (UROXATRAL) PO SCH (17:14)
[2017-01-15] MEDS: MILK OF MAGNESIA 400 MG/5 ML 30 ML UDC PO PRN (17:17)
--- NOTE | 2017-01-15 19:17 | PM & R (SOAP) Progress Note ---
Subjective Subjective/Events-last exam Patient was seen in her room this afternoon Discussed case with RN Patient to have TOV this afternoon Appreciate DR Zelaya note Todays INR drawn late INR> 3 Will hold coumadib if INR >3 Will recheck INR in the AM Patient min assist for transfers Objective Exam Last Set of Vital Signs Vital Signs Date Time Temp Pulse Resp B/P (MAP) Pulse Ox O2 Delivery O2 Flow Rate FiO2 01/15/17 17:11 97.1 60 18 115/66 95 Room Air Capillary Refill : I&O Intake and Output 01/15/17 00:00 Intake Total 1120 ml Output Total 550 ml Balance 570 ml Intake Oral 1120 ml Output Urine Total 550 ml General: Alert, Oriented X3, Cooperative, No Acute Distress HEENT: Atraumatic, PERRLA, EOMI, Mucous Memb Moist/[place], Other (alopecia) Neck: Supple, No JVD Lungs: Clear to Auscultation Heart: Regular Rate Abdomen: Normal Bowel Sounds, Soft, No Tenderness Extremities: Other (trace edema) Neuro: Other (weakness and decreased sensation distal LLE) Results Lab Laboratory Tests 01/15/17 14:44: Prothrombin Time 35.0H, INR Comment 3.5H Assessment/Plan Assessment Lumbar SS with Myelopathy/weakness and impaired sensation LLE Zoster treated Breast CA s/p lumpectomy and chemo with Peripheral neuropathy and weakness Urinary retention managed with Indwelling Mi catheter -DR Pavon following - a trial of voiding (TOV) today 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
[2017-01-15] MEDS: traZODone 50 MG (DESYREL) TAB PO SCH (20:31)
[2017-01-15] MEDS: LIDODERM PATCH REMOVAL TP SCH (20:33)
[2017-01-16 06:00] VITALS: BP 135/76
[2017-01-16 06:41] LABS: INR 3.1 (0.8-1.4); PROTHROMBIN TIME PATIENT 32.2 SEC (12.2-14.7)
--- NOTE | 2017-01-16 08:13 | Progress Note (SOAP) ---
Subjective Subjective/Events-last exam debility. Left leg weakness. Inability to urinate. Patient feel she is getting better Objective Exam Vital Signs Date Time Temp Pulse Resp B/P (MAP) Pulse Ox O2 Delivery O2 Flow Rate FiO2 01/16/17 06:00 98.6 58 16 135/76 96 NIV/CPAP 01/15/17 20:00 Room Air 01/15/17 17:11 97.1 60 18 115/66 95 Room Air 01/15/17 10:46 61 107/64 01/15/17 09:55 68 20 97 Room Air 01/15/17 09:16 62 18 99/62 96 Room Air 01/15/17 08:34 Room Air I & O 01/16/17 07:00 Intake Total 680 ml Output Total 1050 ml Balance -370 ml Capillary Refill : General Appearance: No Apparent Distress, WD/WN HEENT: Normal ENT Inspection Neck: Full Range of Motion, Normal Inspection Respiratory: Chest Non Tender, Lungs Clear, Normal Breath Sounds, No Accessory Muscle Use, No Respiratory Distress Cardiovascular: Regular Rate, Rhythm, No Murmur Results Lab Laboratory Tests 01/15/17 14:44: Prothrombin Time 35.0H, INR Comment 3.5H 01/16/17 06:13: Prothrombin Time 32.2H, INR Comment 3.1H Assessment/Plan Assessment/Plan Assess & Plan/Chief Complaint Debility. A. fib. Herpes zoster. Patient now in sinus rhythm. Left foot drop. Weight loss 41 pounds. . Debility. Herpes zoster. 01/10/17.. . 01/11/17. Debility. A. fib. Herpes zoster. Patient unable to void. Patient have the Mi catheter put back in. . 01/12/17. Debility. Atrial fib. Herpes zoster Patient now in sinus rhythm. . 01/15/17. Debility. A. fib history. Knee pain. X-ray shows arthritis of knee and no acute process. . 01/16/17. Debility. A. fib history. Patient not able to void. Patient feel she is improving. Clinical Quality Measures DVT/VTE Risk/Contraindication: Risk Factor Score Per Nursin RFS Level Per Nursing on Admit: 4+=Very High BOUBACAR MARR DO Jan 16, 2017 08:13
--- NOTE | 2017-01-16 08:22 | Progress Note-Urology ---
Progress Note-Urology Progress Notes/Assess & Plan Progress/Assessment & Plan FAILED TOV. PLAN ADD URECHOLINE, REINSERT CARROLL AND TOV IN 48HRS Final Diagnosis URINE RETENTION WITH NEUROGENIC BLADDER SELENE HUBBARD MD Jan 16, 2017 8:22 am
[2017-01-16] MEDS: LIDOCAINE (LIDODERM) 5% PATCH TOP SCH ×2 (08:28→08:33)
[2017-01-16] MEDS: DULoxetine 30 MG (CYMBALTA) CAP PO SCH (08:28)
[2017-01-16] MEDS: DOCUSATE SODIUM 100 MG (COLACE) CAP PO SCH ×2 (08:28→20:33)
[2017-01-16] MEDS: AMIODARONE 200 MG (CORDARONE) TAB PO SCH ×2 (08:28→20:34)
[2017-01-16] MEDS: DIGOXIN 0.125 MG (LANOXIN) TAB PO SCH (08:28)
[2017-01-16] MEDS: PREGABALIN 100 MG (LYRICA) CAPSULE PO SCH ×2 (08:31→20:33)
--- NOTE | 2017-01-16 11:35 | PM & R (SOAP) Progress Note ---
Subjective Subjective/Events-last exam Patient was seen in her room this AM Discussed case with DR Librado RAM Meds adjusted and to have another TOV in 2 days Objective Exam Last Set of Vital Signs Vital Signs Date Time Temp Pulse Resp B/P (MAP) Pulse Ox O2 Delivery O2 Flow Rate FiO2 01/16/17 08:00 Room Air 01/16/17 06:00 98.6 58 16 135/76 96 Capillary Refill : I&O Intake and Output 01/16/17 00:00 Intake Total 780 ml Output Total 950 ml Balance -170 ml Intake Oral 780 ml Output Urine Total 950 ml # Bowel Movements 1 General: Alert, Oriented X3, Cooperative, No Acute Distress HEENT: Atraumatic, PERRLA, EOMI, Mucous Memb Moist/[place], Other (alopecia) Neck: Supple, No JVD Lungs: Clear to Auscultation Heart: Regular Rate Abdomen: Normal Bowel Sounds, Soft, No Tenderness Extremities: Other (trace edema) Neuro: Other (weakness and decreased sensation distal LLE) Other physical findings Indwellin Mi catheter to DD Results Lab Laboratory Tests 01/15/17 14:44: Prothrombin Time 35.0H, INR Comment 3.5H 01/16/17 06:13: Prothrombin Time 32.2H, INR Comment 3.1H Assessment/Plan Assessment Lumbar SS with Myelopathy/weakness and impaired sensation LLE Zoster treated Breast CA s/p lumpectomy and chemo with Peripheral neuropathy and weakness Urinary retention managed with Indwelling Mi catheter -DR Pavon following - a trial of voiding (TOV) failed-meds adjusted and to have another TOV in 2 days 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
--- NOTE | 2017-01-16 11:48 | Physical Therapy Daily Note ---
PT Daily Note-Current Subjective Patient in recliner pre tx, agrees to PT. No complaints of pain but she states she does have some right knee pain after she wakes up but it goes away with use. Appearance Patient in recliner post tx with nurse call, phone, tray, all needs met. Mental Status Patient Orientation: Normal For Age Transfers Functional [place] Measure 0=Not Assessed/NA 4=Minimal Assistance 1=Total Assistance 5=Supervision or Setup 2=Maximal Assistance 6=Modified [place] 3=Moderate Assistance 7=Complete IndependenceIRFPAI Quality Coding Scale 6 Independent with activity with or without an assistive device 5 Patient requires set up or clean up by helper. Patient completes activity by themselves 4 Supervision or touching assist (CGA). [place] provide cues , steadying assist 3 The helper provides less than half the effort to complete the activity 2 The helper provides more than half the effort to complete the activity 1 Dependent. The helper does all the effort to complete an activity 7 Patient refused to complete or attempt activity 9 The patient did not perform the activity before the current illness or injury 88 Not attempted due to Medical conditions or safety concerns Transfers (B, C, W/C) (FIM): 4 Sit to/from Stand: 4 Bed to/from Chair: 4 CGA with sit to stand and stand pivot. Gait Training Gait (FIM): 1 Distance: 20'x3 Gait Level of Assist: 4 Gait Persons Needed: 1 Gait Assistive Device: FWW Wheelchair follow. CGA and left AFO, patient has weak left hip musculature. Wheelchair Training Wheelchair (FIM): 6 Distance: 150'x2 Type of Wheelchair: Manual Exercises Standing: Hip Abduction, Heel/toe raises, Mini squats Standing Reps: 10 LAQ alternating for 5 min, toe-taps on 6" step x10 each side Treatments wheelchair mobility, transfers, ambulation, functional strengthening Assessment Current Status: Fair Progress Ambulation improving but patient still fatigues quickly and needs many rest breaks between activities. PT Short Term Goals Short Term Goals Time Frame: Jan 22, 2017 Gait (FIM): 2 Distance (FIM): 1=up to 49 ft Gait Assistive Device: FWW Wheelchair Distance: 150'x2 PT Biodiesel Production Associate Goals [facility] Goals PT Biodiesel Production Associate Goals Time Frame: February 05, 2017 Transfers (B,C,W/C) (FIM): 6 Sit to Lying (QC): 6 Lying-Sitting on Side/Bed(QC): 6 Sit to Stand (QC): 6 Rollin Roll Left to Right (QC): 6 Chair/Vyh-gd-Xxsby Xfer(QC): 6 Car Transfer (QC): 5 Does the Patient Walk: No and Walking Goal IS indicated Gait (FIM): 6 Gait distance (FIM): 3=150 ft Walk 10 feet (QC): 6 Walk 10ft-Uneven Surface(QC): 6 Walk 50ft with 2 Turns (QC): 6 Walk 150 ft (QC): 6 Gait Assistive Device: FWW Does the Pt use WC or Scooter?: Yes Wheelchair (FIM): 6 Wheel 50 feet with 2 turns (QC: 6 Stairs (FIM): 2 # of Steps: 4 1 Step (curb) (QC): 4 4 Steps (QC): 4 12 Steps (QC): 9 Picking up an Object (QC): 4 PT Plan Problem List Problem List: Activity Tolerance, Functional Strength, Safety, Balance, Gait, Transfer, Bed Mobility Treatment/Plan Treatment Plan: Bed Mobility, Education, Functional Activity Tony, Functional Strength, Group Therapy, Gait, Safety, Therapeutic Exercise, Transfers Treatment Duration: February 05, 2017 Visits Per Week: 10-15 Minutes/Day (M-F): 60-90 Minutes/Day (Sat/Simpson): prn Safety Risks/Education Patient Education: Gait Training, Transfer Techniques, Correct Positioning, W/ C Management, Safety Issues Teaching Recipient: Patient Teaching Methods: Demonstration, Discussion Response to Teaching: Reinforcement Needed Time/GCodes Time In: 1045 Time Out: 1145 Total Billed Treatment Time: 60 Total Billed Treatment 1 visit GT 30 min [facility] 15 min EX 15 min LALO VILLEGAS PT Jan 16, 2017 11:48
[2017-01-16] MEDS: BETHANECHOL 25 MG (URECHOLINE) TAB PO SCH ×3 (11:51→20:33)
--- NOTE | 2017-01-16 13:06 | Occupational Ther Daily Note ---
OT Current Status-Daily Note Subjective Pt seen in room, up in bed, agreeable to OT. Would prefer shower over sponge bath. No pain mentioned. Appearance Alert, cooperative Mental Status/Objective Functional [place] Measure 0=Not Assessed/NA 4=Minimal Assistance 1=Total Assistance 5=Supervision or Setup 2=Maximal Assistance 6=Modified [place] 3=Moderate Assistance 7=Complete [place] ADL-Treatment Pt noted while brushing teeth, "Oops. I forgot to lock my brakes." Functional [place] Measure 0=Not Assessed/NA 4=Minimal Assistance 1=Total Assistance 5=Supervision or Setup 2=Maximal Assistance 6=Modified [place] 3=Moderate Assistance 7=Complete IndependenceIRFPAI Quality Coding Scale 6 Independent with activity with or without an assistive device 5 Patient requires set up or clean up by helper. Patient completes activity by themselves 4 Supervision or touching assist (CGA). [place] provide cues , steadying assist 3 The helper provides less than half the effort to complete the activity 2 The helper provides more than half the effort to complete the activity 1 Dependent. The helper does all the effort to complete an activity 7 Patient refused to complete or attempt activity 9 The patient did not perform the activity before the current illness or injury 88 Not attempted due to Medical conditions or safety concerns Eating (FIM): 6 Grooming (FIM): 6 (Brushed teeth at sink, w/c level. Washed face and hands in shower) Bathing (FIM): 6 (Washed and dried all parts. Turned water on and off and retrieved towel. Shower bench, grab bars, hand held shower, long handled sponge) Upper Body (FIM): 5 (Mod I. Pt retrieved clean clothes from closet at w/c level and dressed upper body without assistance, including hooking bra.) Lower Body Dressing (FIM): 4 (CGA when standing to pull pants up and skirt down. Took socks off by using dressing stick. Donned socks with sock aid and R shoe with long handed shoe horn (pt educ). Still needs min assist to get L foot into shoe. She can push foot down joey shoe and tie it. ABle to fasten brace strap. ) Shower Transfer(FIM): 4 (CGA sliding board transfer on and off shower bench, from w/c. Grab bars) Pt fitted with narrower w/c which make sit easier to get in and out of the bathroom to brush her teeth. Other Treatment Pt propelled herself to the gym per w/c. Did 13 minutes bilat UE ex with arm bike set at 15W resistance (increased time) to strengthen arms to help with sit to stand for ADLs and transfers. Took one brief recovery period. Pt propelled herself back to her room, with all needs met. Education OT Patient Education: Modified ADL techniques, Progress toward Goal/Update tx plan, Safety issues, Transfer techniques, Use of adapted equipment Teaching Recipient: Patient Teaching Methods: Demonstration, Discussion Response to Teaching: Return Demonstration, Reinforcement Needed OT Short Term Goals Short Term Goals Time Frame: Jan 22, 2017 Toileting(FIM): 3 Toilet/Commode Transfer(FIM): 4 Additional Short Term Goals: 2-Verbalize Understanding, 3-ImproveStrength/Tony 1=Demonstrate adherence to instructed precautions during ADL tasks. 2=Patient will verbalize/demonstrate understanding of assistive devices/ modifications for ADL. 3=Patient will improve strength/tolerance for activity to enable patient to perform ADL's. OT Marketing Operations Manager Goals Longterm Goals Time Frame: February 05, 2017 Eating (FIM): 7 Eating (QC): 6 Groomin Oral Hygiene (QC): 6 Bathing(FIM): 6 Shower/Bathe Self (QC): 6 Upper Body Dressing(FIM): 6 Upper Body Dressing (QC): 6 Lower Body Dressing(FIM): 6 Lower Body Dressing (QC): 6 On/Off Footwear (QC): 6 Toileting(FIM): 6 Toileting Hygiene (QC): 6 Toilet/Commode Transfer(FIM): 6 Toilet/Commode Transfer (QC): 6 Shower Transfer(FIM): 6 Additional Goals: 2-Verbalize Understanding, 3-ImproveStrength/Tony 1=Demonstrate adherence to instructed precautions during ADL tasks. 2=Patient will verbalize/demonstrate understanding of assistive devices/ modifications for ADL. 3=Patient will improve strength/tolerance for activity to enable patient to perform ADL's. OT Education/Plan Problem List/Assessment Pt would benefit from skilled OT to increase her independence in basic self care to allow her to safely return home to live with her . Discharge Recommendations Plan/Recommendations: Continue POC Treatment Plan/Plan of Care Patient would benefit from OT for education, treatment and training to promote independence in ADL's, mobility, safety and/or upper extremity function for ADL' s. Plan of Care: ADL Retraining, Functional Mobility, Group Exercise/Act as Ind ( education, exercise, activity tolerance, functional activities, memory), UE Funct Exercise/Act, UE Neuromus Re-Ed/Coord Treatment Duration: February 05, 2017 Visits Per Week: 10-11 Minutes/Day (M-F): 75-90 Minutes/Day (Sat/Simpson): PRN Agreement: Yes Rehab Potential: Good Time/GCodes Start Time: 08:30 Stop Time: 10:00 Total Time Billed (hr/min): 90 Billed Treatment Time visit, ADL 70 minutes, exercise 20 minutes DORIS LUU OT Jan 16, 2017 13:06
--- NOTE | 2017-01-16 14:01 | Physical Therapy Daily Note ---
PT Daily Note-Current Subjective Patient in recliner pre tx, agrees to PT, no complaints of pain. Appearance Patient in recliner post tx with nurse call, phone, tray, all needs met. Mental Status Patient Orientation: Normal For Age Attachments: Mi Catheter Transfers Functional [place] Measure 0=Not Assessed/NA 4=Minimal Assistance 1=Total Assistance 5=Supervision or Setup 2=Maximal Assistance 6=Modified [place] 3=Moderate Assistance 7=Complete IndependenceIRFPAI Quality Coding Scale 6 Independent with activity with or without an assistive device 5 Patient requires set up or clean up by helper. Patient completes activity by themselves 4 Supervision or touching assist (CGA). [place] provide cues , steadying assist 3 The helper provides less than half the effort to complete the activity 2 The helper provides more than half the effort to complete the activity 1 Dependent. The helper does all the effort to complete an activity 7 Patient refused to complete or attempt activity 9 The patient did not perform the activity before the current illness or injury 88 Not attempted due to Medical conditions or safety concerns Transfers (B, C, W/C) (FIM): 4 Sit to/from Stand: 4 Bed to/from Chair: 4 CGA Wheelchair Training Wheelchair (FIM): 6 Distance: 150'x2 Type of Wheelchair: Manual Exercises NuStep Minutes: 15 NuStep Workload: 5 Treatments transfers, wheelchair mobility, functional strengthening Assessment Current Status: Fair Progress improving mobility in general, improved wheelchair mobility PT Short Term Goals Short Term Goals Time Frame: Jan 22, 2017 Gait (FIM): 2 Distance (FIM): 1=up to 49 ft Gait Assistive Device: FWW Wheelchair Distance: 150'x2 PT Senior Living Goals Manager Life Goals PT Senior Living Goals Time Frame: February 05, 2017 Transfers (B,C,W/C) (FIM): 6 Sit to Lying (QC): 6 Lying-Sitting on Side/Bed(QC): 6 Sit to Stand (QC): 6 Rollin Roll Left to Right (QC): 6 Chair/Hfb-sj-Rjntf Xfer(QC): 6 Car Transfer (QC): 5 Does the Patient Walk: No and Walking Goal IS indicated Gait (FIM): 6 Gait distance (FIM): 3=150 ft Walk 10 feet (QC): 6 Walk 10ft-Uneven Surface(QC): 6 Walk 50ft with 2 Turns (QC): 6 Walk 150 ft (QC): 6 Gait Assistive Device: FWW Does the Pt use WC or Scooter?: Yes Wheelchair (FIM): 6 Wheel 50 feet with 2 turns (QC: 6 Stairs (FIM): 2 # of Steps: 4 1 Step (curb) (QC): 4 4 Steps (QC): 4 12 Steps (QC): 9 Picking up an Object (QC): 4 PT Plan Problem List Problem List: Activity Tolerance, Functional Strength, Safety, Balance, Gait, Transfer, Bed Mobility Treatment/Plan Treatment Plan: Continue Plan of Care Treatment Plan: Bed Mobility, Education, Functional Activity Tony, Functional Strength, Group Therapy, Gait, Safety, Therapeutic Exercise, Transfers Treatment Duration: February 05, 2017 Visits Per Week: 10-15 Minutes/Day (M-F): 60-90 Minutes/Day (Sat/Simpson): prn Safety Risks/Education Patient Education: Transfer Techniques, Correct Positioning, W/C Management, Safety Issues Teaching Recipient: Patient Teaching Methods: Demonstration, Discussion Response to Teaching: Reinforcement Needed Time/GCodes Time In: 1330 Time Out: 1400 Total Billed Treatment Time: 30 Total Billed Treatment 1 visit [facility] 15 min EX 15 min LALO VILLEGAS PT Jan 16, 2017 14:01
[2017-01-16] MEDS: warFARin 5 MG (COUMADIN) TAB PO SCH (17:13)
[2017-01-16] MEDS: ALFUZOSIN HCL 10 MG TAB (UROXATRAL) PO SCH (17:26)
[2017-01-16 18:28] VITALS: BP 122/70
[2017-01-16] MEDS: LIDODERM PATCH REMOVAL TP SCH (19:54)
[2017-01-16] MEDS: traZODone 50 MG (DESYREL) TAB PO SCH (20:33)
[2017-01-17 05:06] VITALS: BP 129/76
[2017-01-17 06:25] LABS: INR 2.5 (0.8-1.4); PROTHROMBIN TIME PATIENT 26.4 SEC (12.2-14.7)
[2017-01-17] MEDS: BETHANECHOL 25 MG (URECHOLINE) TAB PO SCH ×4 (06:29→20:43)
[2017-01-17 08:11] LABS: BILIRUBIN,URINE NEGATIVE (NEGATIVE); KETONES,URINE NEGATIVE (NEGATIVE); LEUKOCYTE ESTERASE ,URINE 3+ (NEGATIVE); NITRITE,URINE POSITIVE (NEGATIVE); PH,URINE 6 (5-9); PROTEIN,URINE 2+ (NEGATIVE); UROBILINOGEN,URINE NORMAL (NORMAL)
[2017-01-17 08:24] LABS: SQUAMOUS EPITHELIAL CELL,UR 0-2 /HPF; WBC,URINE >100 /HPF
--- NOTE | 2017-01-17 08:27 | Progress Note (SOAP) ---
Subjective Subjective/Events-last exam debility. Breast cancer. Inability to void. Mi catheter put back in. Patient states she's constipated. Patient slowly progressing Objective Exam Vital Signs Date Time Temp Pulse Resp B/P (MAP) Pulse Ox O2 Delivery O2 Flow Rate FiO2 01/17/17 05:06 98.4 57 16 129/76 97 Room Air 01/16/17 20:10 Room Air 01/16/17 18:28 96.3 59 16 122/70 96 Room Air I & O 01/17/17 07:00 Intake Total 1500 ml Output Total 1125 ml Balance 375 ml Capillary Refill : General Appearance: No Apparent Distress, WD/WN HEENT: Normal ENT Inspection Neck: Full Range of Motion, Normal Inspection Respiratory: Chest Non Tender, Lungs Clear, Normal Breath Sounds, No Accessory Muscle Use, No Respiratory Distress Results Lab Laboratory Tests 01/17/17 06:00: Prothrombin Time 26.4H, INR Comment 2.5H 01/17/17 08:00: Urine Color YELLOW, Urine Clarity SLIGHTLY CLOUDY, Urine pH 6, Urine Specific [place] 1.015L, Urine Protein 2+H, Urine Glucose (UA) NEGATIVE, Urine Ketones NEGATIVE, Urine Nitrite POSITIVEH, Urine Bilirubin NEGATIVE, Urine Urobilinogen NORMAL, Urine Leukocyte Esterase 3+H, Urine RBC (Auto) 4+H, Urine RBC 5-10H, Urine WBC >100H, Urine Squamous Epithelial Cells 0-2, Urine Crystals NONE, Urine Bacteria LARGEH, Urine Casts NONE, Urine Mucus NEGATIVE, Urine Culture Indicated YES Assessment/Plan Assessment/Plan Assess & Plan/Chief Complaint Debility. A. fib. Herpes zoster. Patient now in sinus rhythm. Left foot drop. Weight loss 41 pounds. . Debility. Herpes zoster. 01/10/17.. . 01/11/17. Debility. A. fib. Herpes zoster. Patient unable to void. Patient have the Mi catheter put back in. . 01/12/17. Debility. Atrial fib. Herpes zoster Patient now in sinus rhythm. . 01/15/17. Debility. A. fib history. Knee pain. X-ray shows arthritis of knee and no acute process. . 01/16/17. Debility. A. fib history. Patient not able to void. Patient feel she is improving.. . 01/17/17. Debility. A. fib history. Patient has Mi catheter put back in. Patient states she's constipated. Clinical Quality Measures DVT/VTE Risk/Contraindication: Risk Factor Score Per Nursin RFS Level Per Nursing on Admit: 4+=Very High BOUBACAR MARR DO Jan 17, 2017 08:27
--- NOTE | 2017-01-17 09:00 | Physical Therapy Daily Note ---
PT Daily Note-Current Subjective Pt. agrees to Rx. States she feels constipated and wants something for it. Pain Numeric Pain Scale: 0-No Pain Mental Status Patient Orientation: Normal For Age Attachments: Mi Catheter, Other-See Comments (AFO left foot) Transfers Functional [place] Measure 0=Not Assessed/NA 4=Minimal Assistance 1=Total Assistance 5=Supervision or Setup 2=Maximal Assistance 6=Modified [place] 3=Moderate Assistance 7=Complete IndependenceIRFPAI Quality Coding Scale 6 Independent with activity with or without an assistive device 5 Patient requires set up or clean up by helper. Patient completes activity by themselves 4 Supervision or touching assist (CGA). Mobile provide cues , steadying assist 3 The helper provides less than half the effort to complete the activity 2 The helper provides more than half the effort to complete the activity 1 Dependent. The helper does all the effort to complete an activity 7 Patient refused to complete or attempt activity 9 The patient did not perform the activity before the current illness or injury 88 Not attempted due to Medical conditions or safety concerns Transfers (B, C, W/C) (FIM): 5 (raised surfaces assists pt with sit to stand TRFs) Scootin Rollin Supine to/from Sit: 5 (slow and careful) Sit to/from Stand: 5 (needs cues for using UEs and reaching back for arms of chair for safety) Bed to/from Chair: 5 Gait Training Does the Patient Walk?: Yes Gait (FIM): 2 Distance (FIM): 4=346-00 ft (125,100x2) Gait Level of Assist: 4 Gait Persons Needed: 1 Gait Assistive Device: FWW w/c close behind and skilled verbal instruction for broader PASCUAL and alignment Wheelchair Training Does the Pt Use a Wheelchair?: Yes Wheelchair (FIM): 4 Wheelchair Distance: 3=150 ft Wheelchair Level of Assist: 4 Type of Wheelchair: Manual Exercises Supine Ex: Bridging, Ankle pumps, Quad Set, Rolling, Glut sets, Heel Slides, Short Arc Quads, Scooting, Straight leg raise, Hip abd/add Supine Reps: 15 Seated Therapy Exercises: Ankle pumps, Sit to stand, Long arc quads, Hip flexion Seated Reps: 12 NuStep Minutes: 10 NuStep Workload: 2 Treatments toileted managing pad change and clothing SBA Assessment Current Status: Good Progress visited Pt. and addressed constipation PT Short Term Goals Short Term Goals Time Frame: Jan 22, 2017 Gait (FIM): 2 Distance (FIM): 1=up to 49 ft Gait Assistive Device: FWW Wheelchair Distance: 150'x2 PT Director Of Financial Aid Goals Director Of Financial Aid Goals PT Director Of Financial Aid Goals Time Frame: February 05, 2017 Transfers (B,C,W/C) (FIM): 6 Sit to Lying (QC): 6 Lying-Sitting on Side/Bed(QC): 6 Sit to Stand (QC): 6 Rollin Roll Left to Right (QC): 6 Chair/Uzq-hx-Ghbhw Xfer(QC): 6 Car Transfer (QC): 5 Does the Patient Walk: No and Walking Goal IS indicated Gait (FIM): 6 Gait distance (FIM): 3=150 ft Walk 10 feet (QC): 6 Walk 10ft-Uneven Surface(QC): 6 Walk 50ft with 2 Turns (QC): 6 Walk 150 ft (QC): 6 Gait Assistive Device: FWW Does the Pt use WC or Scooter?: Yes Wheelchair (FIM): 6 Wheel 50 feet with 2 turns (QC: 6 Stairs (FIM): 2 # of Steps: 4 1 Step (curb) (QC): 4 4 Steps (QC): 4 12 Steps (QC): 9 Picking up an Object (QC): 4 PT Plan Treatment/Plan Treatment Plan: Continue Plan of Care Treatment Plan: Bed Mobility, Education, Functional Activity Tony, Functional Strength, Group Therapy, Gait, Safety, Therapeutic Exercise, Transfers Treatment Duration: February 05, 2017 Visits Per Week: 10-15 Minutes/Day (M-F): 60-90 Minutes/Day (Sat/Simpson): prn Safety Risks/Education Patient Education: Gait Training, Transfer Techniques, Correct Positioning, W/ C Management, Disease Process, Safety Issues Teaching Recipient: Patient Teaching Methods: Demonstration, Discussion Response to Teaching: Verbalize Understanding, Return Demonstration, Reinforcement Needed Time/GCodes Time In: 800 Time Out: 900 Total Billed Treatment Time: 60 Total Billed Treatment 1,EX25m,FA15m,GT20m G Codes Necessary: MAXIM Nj HEADHUNTER Jan 17, 2017 08:59
[2017-01-17] MEDS: DIGOXIN 0.125 MG (LANOXIN) TAB PO SCH (10:01)
[2017-01-17] MEDS: PREGABALIN 100 MG (LYRICA) CAPSULE PO SCH ×2 (10:01→20:43)
[2017-01-17] MEDS: DOCUSATE SODIUM 100 MG (COLACE) CAP PO SCH ×2 (10:01→20:43)
[2017-01-17] MEDS: DULoxetine 30 MG (CYMBALTA) CAP PO SCH (10:01)
[2017-01-17] MEDS: AMIODARONE 200 MG (CORDARONE) TAB PO SCH ×2 (10:01→20:43)
[2017-01-17] MEDS: LIDOCAINE (LIDODERM) 5% PATCH TOP SCH (10:01)
[2017-01-17 10:24] LABS: MEAN PLATELET VOLUME 10.4 FL (7.4-10.4); RED CELL DISTRIBUTION WIDTH 17.2 % (10.0-14.5); WHITE BLOOD COUNT 2.3 10^3/uL (4.3-11.0)
--- NOTE | 2017-01-17 10:31 | PM & R (SOAP) Progress Note ---
Subjective Subjective/Events-last exam Patient was seen in her room this AM Patient SBA for transfers INR noted- at therapeutic level Objective Exam Last Set of Vital Signs Vital Signs Date Time Temp Pulse Resp B/P (MAP) Pulse Ox O2 Delivery O2 Flow Rate FiO2 01/17/17 08:00 Room Air 01/17/17 05:06 98.4 57 16 129/76 97 Capillary Refill : I&O Intake and Output 01/16/17 23:59 Intake Total 1150 ml Output Total 1075 ml Balance 75 ml Intake Oral 1150 ml Output Urine Total 1075 ml General: Alert, Oriented X3, Cooperative, No Acute Distress HEENT: Atraumatic, PERRLA, EOMI, Mucous Memb Moist/[place], Other (alopecia) Neck: Supple, No JVD Lungs: Clear to Auscultation Heart: Regular Rate Abdomen: Normal Bowel Sounds, Soft, No Tenderness Extremities: Other (trace edema) Neuro: Other (weakness and decreased sensation distal LLE) Results Lab Laboratory Tests 01/15/17 14:44: Prothrombin Time 35.0H, INR Comment 3.5H 01/16/17 06:13: Prothrombin Time 32.2H, INR Comment 3.1H 01/17/17 06:00: Prothrombin Time 26.4H, INR Comment 2.5H 01/17/17 08:00: Urine Color YELLOW, Urine Clarity SLIGHTLY CLOUDY, Urine pH 6, Urine Specific [place] 1.015L, Urine Protein 2+H, Urine Glucose (UA) NEGATIVE, Urine Ketones NEGATIVE, Urine Nitrite POSITIVEH, Urine Bilirubin NEGATIVE, Urine Urobilinogen NORMAL, Urine Leukocyte Esterase 3+H, Urine RBC (Auto) 4+H, Urine RBC 5-10H, Urine WBC >100H, Urine Squamous Epithelial Cells 0-2, Urine Crystals NONE, Urine Bacteria LARGEH, Urine Casts NONE, Urine Mucus NEGATIVE, Urine Culture Indicated YES Assessment/Plan Assessment Lumbar SS with Myelopathy/weakness and impaired sensation LLE Zoster treated Breast CA s/p lumpectomy and chemo with Peripheral neuropathy and weakness Urinary retention managed with Indwelling Mi catheter -DR Pavon following - a trial of voiding (TOV) failed-meds adjusted and to have another TOV in 2 days 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
[2017-01-17 10:40] LABS: ANION GAP 7 MMOL/L (5-14); BLOOD UREA NITROGEN 7 MG/DL (7-18); BUN/CREATININE RATIO 11; CALCIUM 8.5 MG/DL (8.5-10.1); CARBON DIOXIDE 30 MMOL/L (21-32); CHLORIDE 107 MMOL/L (98-107); CREATININE SERUM 0.63 MG/DL (0.60-1.30); GFR ESTIMATED > 60; GLUCOSE 92 MG/DL (70-105); POTASSIUM 3.7 MMOL/L (3.6-5.0); SODIUM 144 MMOL/L (135-145)
[2017-01-17] MEDS: MILK OF MAGNESIA 400 MG/5 ML 30 ML UDC PO PRN (11:50)
--- NOTE | 2017-01-17 12:48 | Occupational Ther Daily Note ---
OT Current Status-Daily Note Subjective Pt seen in room, up in recliner, agreeable to OT. No pain mentioned. Appearance Alert, cooperative Mental Status/Objective Functional [place] Measure 0=Not Assessed/NA 4=Minimal Assistance 1=Total Assistance 5=Supervision or Setup 2=Maximal Assistance 6=Modified [place] 3=Moderate Assistance 7=Complete [place] ADL-Treatment Needs reminders most of the time to lock brakes on w/c. Pt requested to shower Functional [place] Measure 0=Not Assessed/NA 4=Minimal Assistance 1=Total Assistance 5=Supervision or Setup 2=Maximal Assistance 6=Modified [place] 3=Moderate Assistance 7=Complete IndependenceIRFPAI Quality Coding Scale 6 Independent with activity with or without an assistive device 5 Patient requires set up or clean up by helper. Patient completes activity by themselves 4 Supervision or touching assist (CGA). [place] provide cues , steadying assist 3 The helper provides less than half the effort to complete the activity 2 The helper provides more than half the effort to complete the activity 1 Dependent. The helper does all the effort to complete an activity 7 Patient refused to complete or attempt activity 9 The patient did not perform the activity before the current illness or injury 88 Not attempted due to Medical conditions or safety concerns Eating (FIM): 6 Grooming (FIM): 6 (Mod I at sink, w/c level) Bathing (FIM): 6 (Washed and dried all parts. turned water on and off, retrieved towels from bar. ) Upper Body (FIM): 5 (setup. Able to fasten hooks on bra and buttons on dress. ) Lower Body Dressing (FIM): 4 (Socks off with dressing stick, socks on with hard sock aid - no assist. Able to get R shoe on with long shoe horn but has difficulty getting foot into L shoe due to ankle weakness. Underwear on with dressing stick, occasional cue. Stood CGA to pull pants up. Cream applied to bottom) Toileting (FIM): 4 (Managed clothing. No results from BM and has marrufo catheter. [facility] over toilet) Transfers (B, C, W/C) (FIM): 4 (CGA, FWW. ) Toilet/Commode Transfer (FIM): 4 (Transferred from w/c to [facility] over toilet with CGA, using FWW, grab bar. ) Shower Transfer(FIM): 4 (Walked from [facility] over toilet to shower bench with CGA, FWW (about 5 feet). transferred on to bench with grab bars. transferred off bench with CGA and grab bars to w/c.) Other Treatment Pt propelled her w/c to gym, for UE strengthening. Did 14 minutes bilat UE exercise with arm bike set at 20W resistance (increased resistance), with no rest or recovery breaks. Propelled w/c back to room and transferred on to [facility] over toilet with CGA, FWW. Pt uncomfortable because she needs to have a BM. Call light present. Education OT Patient Education: Exercise program, Modified ADL techniques, Progress toward Goal/Update tx plan, Safety issues, Transfer techniques, Use of adapted equipment Teaching Recipient: Patient Response to Teaching: Verbalize Understanding, Return Demonstration, Reinforcement Needed OT Short Term Goals Short Term Goals Time Frame: Jan 22, 2017 Toileting(FIM): 3 Toilet/Commode Transfer(FIM): 4 Additional Short Term Goals: 2-Verbalize Understanding, 3-ImproveStrength/Tony 1=Demonstrate adherence to instructed precautions during ADL tasks. 2=Patient will verbalize/demonstrate understanding of assistive devices/ modifications for ADL. 3=Patient will improve strength/tolerance for activity to enable patient to perform ADL's. OT [facility] Goals Gas Engineer Goals Time Frame: February 05, 2017 Eating (FIM): 7 Eating (QC): 6 Groomin Oral Hygiene (QC): 6 Bathing(FIM): 6 Shower/Bathe Self (QC): 6 Upper Body Dressing(FIM): 6 Upper Body Dressing (QC): 6 Lower Body Dressing(FIM): 6 Lower Body Dressing (QC): 6 On/Off Footwear (QC): 6 Toileting(FIM): 6 Toileting Hygiene (QC): 6 Toilet/Commode Transfer(FIM): 6 Toilet/Commode Transfer (QC): 6 Shower Transfer(FIM): 6 Additional Goals: 2-Verbalize Understanding, 3-ImproveStrength/Tony 1=Demonstrate adherence to instructed precautions during ADL tasks. 2=Patient will verbalize/demonstrate understanding of assistive devices/ modifications for ADL. 3=Patient will improve strength/tolerance for activity to enable patient to perform ADL's. OT Education/Plan Problem List/Assessment Pt would benefit from skilled OT to increase her independence in basic self care to allow her to safely return home to live with her . Discharge Recommendations Plan/Recommendations: Continue POC Treatment Plan/Plan of Care Patient would benefit from OT for education, treatment and training to promote independence in ADL's, mobility, safety and/or upper extremity function for ADL' s. Plan of Care: ADL Retraining, Functional Mobility, Group Exercise/Act as Ind ( education, exercise, activity tolerance, functional activities, memory), UE Funct Exercise/Act, UE Neuromus Re-Ed/Coord Treatment Duration: February 05, 2017 Visits Per Week: 10-11 Minutes/Day (M-F): 75-90 Minutes/Day (Sat/Simpson): PRN Agreement: Yes Rehab Potential: Good Time/GCodes Start Time: 09:30 Stop Time: 11:00 Total Time Billed (hr/min): 90 Billed Treatment Time visit, 65 minutes ADL, 25 minutes exercise DORIS LUU OT Jan 17, 2017 12:48
--- NOTE | 2017-01-17 13:09 | Physical Therapy Daily Note ---
PT Daily Note-Current Subjective Pt. agrees to Rx. States she is fatigued and will want to go to bed after Rx. Pain Numeric Pain Scale: 0-No Pain Mental Status Patient Orientation: Normal For Age Attachments: Other-See Comments (AFO) Transfers Functional [place] Measure 0=Not Assessed/NA 4=Minimal Assistance 1=Total Assistance 5=Supervision or Setup 2=Maximal Assistance 6=Modified [place] 3=Moderate Assistance 7=Complete IndependenceIRFPAI Quality Coding Scale 6 Independent with activity with or without an assistive device 5 Patient requires set up or clean up by helper. Patient completes activity by themselves 4 Supervision or touching assist (CGA). [place] provide cues , steadying assist 3 The helper provides less than half the effort to complete the activity 2 The helper provides more than half the effort to complete the activity 1 Dependent. The helper does all the effort to complete an activity 7 Patient refused to complete or attempt activity 9 The patient did not perform the activity before the current illness or injury 88 Not attempted due to Medical conditions or safety concerns sit to stand from w/c and sit to sup into bed all SBA to CGA Gait Training Gait Assistive Device: FWW [id number] 50ft x1 FWW CGA and cues , w/c to follow, walked to fatigue Exercises Seated Therapy Exercises: Sit to stand, Long arc quads, Hip flexion Seated Reps: 10 Assessment Current Status: Good Progress PT Short Term Goals Short Term Goals Time Frame: Jan 22, 2017 Gait (FIM): 2 Distance (FIM): 1=up to 49 ft Gait Assistive Device: FWW Wheelchair Distance: 150'x2 PT [place] Operator Goals Group Home Goals PT Chyron Operator Goals Time Frame: February 05, 2017 Transfers (B,C,W/C) (FIM): 6 Sit to Lying (QC): 6 Lying-Sitting on Side/Bed(QC): 6 Sit to Stand (QC): 6 Rollin Roll Left to Right (QC): 6 Chair/Lxp-xk-Bglxw Xfer(QC): 6 Car Transfer (QC): 5 Does the Patient Walk: No and Walking Goal IS indicated Gait (FIM): 6 Gait distance (FIM): 3=150 ft Walk 10 feet (QC): 6 Walk 10ft-Uneven Surface(QC): 6 Walk 50ft with 2 Turns (QC): 6 Walk 150 ft (QC): 6 Gait Assistive Device: FWW Does the Pt use WC or Scooter?: Yes Wheelchair (FIM): 6 Wheel 50 feet with 2 turns (QC: 6 Stairs (FIM): 2 # of Steps: 4 1 Step (curb) (QC): 4 4 Steps (QC): 4 12 Steps (QC): 9 Picking up an Object (QC): 4 PT Plan Treatment/Plan Treatment Plan: Bed Mobility, Education, Functional Activity Tony, Functional Strength, Group Therapy, Gait, Safety, Therapeutic Exercise, Transfers Treatment Duration: February 05, 2017 Visits Per Week: 10-15 Minutes/Day (M-F): 60-90 Minutes/Day (Sat/Simpson): MAXIM Faye PTA Jan 17, 2017 13:09
--- NOTE | 2017-01-17 13:57 | Progress Note-Urology ---
Progress Note-Urology Progress Notes/Assess & Plan Progress/Assessment & Plan TOV TOMORROW Final Diagnosis URINE RETENTION SELENE HUBBARD MD Jan 17, 2017 1:57 pm
[2017-01-17] MEDS: ALFUZOSIN HCL 10 MG TAB (UROXATRAL) PO SCH (17:57)
[2017-01-17] MEDS: warFARin 5 MG (COUMADIN) TAB PO SCH (17:57)
[2017-01-17 18:15] VITALS: BP 123/71
[2017-01-17] MEDS: LIDODERM PATCH REMOVAL TP SCH (20:43)
[2017-01-17] MEDS: traZODone 50 MG (DESYREL) TAB PO SCH (20:43)
[2017-01-18 05:33] VITALS: BP 131/69
[2017-01-18] MEDS: BETHANECHOL 25 MG (URECHOLINE) TAB PO SCH ×4 (06:07→21:11)
[2017-01-18] MEDS: PREGABALIN 100 MG (LYRICA) CAPSULE PO SCH ×2 (07:48→21:11)
[2017-01-18] MEDS: DIGOXIN 0.125 MG (LANOXIN) TAB PO SCH (07:48)
[2017-01-18] MEDS: AMIODARONE 200 MG (CORDARONE) TAB PO SCH ×2 (07:48→21:12)
[2017-01-18] MEDS: LIDOCAINE (LIDODERM) 5% PATCH TOP SCH (07:48)
[2017-01-18] MEDS: DULoxetine 30 MG (CYMBALTA) CAP PO SCH (07:48)
[2017-01-18] MEDS: DOCUSATE SODIUM 100 MG (COLACE) CAP PO SCH ×2 (07:48→21:11)
[2017-01-18 07:50] LABS: PROTHROMBIN TIME PATIENT 22.3 SEC (12.2-14.7)
--- NOTE | 2017-01-18 08:24 | Progress Note (SOAP) ---
Subjective Subjective/Events-last exam debility. Patient states she's feeling deric Patient states she's walking betterPatient has Mi catheter in. UA positive for nitrates Objective Exam Vital Signs Date Time Temp Pulse Resp B/P (MAP) Pulse Ox O2 Delivery O2 Flow Rate FiO2 01/18/17 05:33 98.1 65 20 131/69 94 Room Air 01/17/17 20:40 Room Air 01/17/17 18:15 97.8 64 18 123/71 97 Room Air I & O 01/18/17 07:00 Intake Total 1460 ml Output Total 1040 ml Balance 420 ml Capillary Refill : General Appearance: No Apparent Distress, WD/WN HEENT: Normal ENT Inspection Neck: Normal Inspection Respiratory: Chest Non Tender, Lungs Clear, Normal Breath Sounds, No Accessory Muscle Use, No Respiratory Distress Cardiovascular: Regular Rate, Rhythm Gastrointestinal: non tender, soft Results Lab Laboratory Tests 01/18/17 06:00: Prothrombin Time 22.3H, INR Comment 2.0H Assessment/Plan Assessment/Plan Assess & Plan/Chief Complaint Debility. A. fib. Herpes zoster. Patient now in sinus rhythm. Left foot drop. Weight loss 41 pounds. . Debility. Herpes zoster. 01/10/17.. . 01/11/17. Debility. A. fib. Herpes zoster. Patient unable to void. Patient have the Mi catheter put back in. . 01/12/17. Debility. Atrial fib. Herpes zoster Patient now in sinus rhythm. . 01/15/17. Debility. A. fib history. Knee pain. X-ray shows arthritis of knee and no acute process. . 01/16/17. Debility. A. fib history. Patient not able to void. Patient feel she is improving.. . 01/17/17. Debility. A. fib history. Patient has Mi catheter put back in. Patient states she's constipated... . 01/24/17. Debility . A. fib history area Urine showed nitrate positive. Patient voices no complaints Clinical Quality Measures DVT/VTE Risk/Contraindication: Risk Factor Score Per Nursin RFS Level Per Nursing on Admit: 4+=Very High BOUBACAR MARR DO Jan 18, 2017 08:24
--- NOTE | 2017-01-18 09:29 | Physical Therapy Daily Note ---
PT Daily Note-Current Subjective Patient in bed pre tx, agrees to PT, she says she is very tired. No complaints of pain. Patient will need to get dressed and shoes and AFO donned. Appearance Patient in wheelchair at bedside post tx with nurse call, phone, tray, all needs met. Mental Status Patient Orientation: Normal For Age Transfers Functional [place] Measure 0=Not Assessed/NA 4=Minimal Assistance 1=Total Assistance 5=Supervision or Setup 2=Maximal Assistance 6=Modified [place] 3=Moderate Assistance 7=Complete IndependenceIRFPAI Quality Coding Scale 6 Independent with activity with or without an assistive device 5 Patient requires set up or clean up by helper. Patient completes activity by themselves 4 Supervision or touching assist (CGA). [place] provide cues , steadying assist 3 The helper provides less than half the effort to complete the activity 2 The helper provides more than half the effort to complete the activity 1 Dependent. The helper does all the effort to complete an activity 7 Patient refused to complete or attempt activity 9 The patient did not perform the activity before the current illness or injury 88 Not attempted due to Medical conditions or safety concerns Transfers (B, C, W/C) (FIM): 4 Scootin Rollin Supine to/from Sit: 5 Sit to/from Stand: 4 Bed to/from Chair: 5 Patient may need min assist for sit to stand from low surfaces, cues for hand placement. Gait Training Gait (FIM): 2 Distance: 75'x2 Gait Level of Assist: 4 Gait Persons Needed: 1 Gait Assistive Device: FWW Patient fatigues very quickly today, CGA, left AFO, trendelenburg gait Wheelchair Training Wheelchair (FIM): 6 Distance: 150' Type of Wheelchair: Manual Exercises NuStep Minutes: 15 NuStep Workload: 5 Treatments bed mobility and transfers, ambulation, functional strengthening, wheelchair mobility Assessment Current Status: Fair Progress improving ambulation, but patient very tired/fatigued this morning PT Short Term Goals Short Term Goals Time Frame: Jan 22, 2017 Gait (FIM): 2 Distance (FIM): 1=up to 49 ft Gait Assistive Device: FWW Wheelchair Distance: 150'x2 PT [place] Turner Goals Detention Goals PT Detention Goals Time Frame: February 05, 2017 Transfers (B,C,W/C) (FIM): 6 Sit to Lying (QC): 6 Lying-Sitting on Side/Bed(QC): 6 Sit to Stand (QC): 6 Rollin Roll Left to Right (QC): 6 Chair/Odb-yu-Slydj Xfer(QC): 6 Car Transfer (QC): 5 Does the Patient Walk: No and Walking Goal IS indicated Gait (FIM): 6 Gait distance (FIM): 3=150 ft Walk 10 feet (QC): 6 Walk 10ft-Uneven Surface(QC): 6 Walk 50ft with 2 Turns (QC): 6 Walk 150 ft (QC): 6 Gait Assistive Device: FWW Does the Pt use WC or Scooter?: Yes Wheelchair (FIM): 6 Wheel 50 feet with 2 turns (QC: 6 Stairs (FIM): 2 # of Steps: 4 1 Step (curb) (QC): 4 4 Steps (QC): 4 12 Steps (QC): 9 Picking up an Object (QC): 4 PT Plan Problem List Problem List: Activity Tolerance, Functional Strength, Safety, Balance, Gait, Transfer, Bed Mobility, ROM Treatment/Plan Treatment Plan: Continue Plan of Care Treatment Plan: Bed Mobility, Education, Functional Activity Tony, Functional Strength, Group Therapy, Gait, Safety, Therapeutic Exercise, Transfers Treatment Duration: February 05, 2017 Visits Per Week: 10-15 Minutes/Day (M-F): 60-90 Minutes/Day (Sat/Simpson): prn Safety Risks/Education Patient Education: Gait Training, Transfer Techniques, Correct Positioning, W/ C Management, Safety Issues Teaching Recipient: Patient Teaching Methods: Demonstration, Discussion Response to Teaching: Reinforcement Needed Time/GCodes Time In: 845 Time Out: 930 Total Billed Treatment Time: 45 Total Billed Treatment 1 visit EX 15' FA 15' GT 15' LALO VILLEGAS PT Jan 18, 2017 09:29
[2017-01-18 11:00] VITALS: BP_SYST 64; BP_SYST 65; BP_SYST 95; BP_DIAS 37; BP_DIAS 38; BP_DIAS 59
--- NOTE | 2017-01-18 11:04 | Occupational Ther Daily Note ---
OT Current Status-Daily Note Subjective Pt seen in room, up in w/c, agreeable to OT. No pain reported. Appearance Alert, cooperative, reported feeling fatigued today. Mental Status/Objective Functional [place] Measure 0=Not Assessed/NA 4=Minimal Assistance 1=Total Assistance 5=Supervision or Setup 2=Maximal Assistance 6=Modified [place] 3=Moderate Assistance 7=Complete [place] ADL-Treatment When pt stood up off toilet, she reported feeling dizzy and had to sit back down. She said she had strained to have small BM (and about 10cc urine). Nsg checked vitals - HR in 80s, BP low, O2 sat WFL. Sat for a couple minutes and thought she would be OK to walk to the shower. She walked a few feet with shower bench with FWW, CGA and transferred to shower. After shower, she transferred to w/c without dizziness. After dressing, she reported she felt dizzy again and got into bed, CGA and then able to get legs up into bed herself. Nursing notified. Functional [place] Measure 0=Not Assessed/NA 4=Minimal Assistance 1=Total Assistance 5=Supervision or Setup 2=Maximal Assistance 6=Modified [place] 3=Moderate Assistance 7=Complete IndependenceIRFPAI Quality Coding Scale 6 Independent with activity with or without an assistive device 5 Patient requires set up or clean up by helper. Patient completes activity by themselves 4 Supervision or touching assist (CGA). [place] provide cues , steadying assist 3 The helper provides less than half the effort to complete the activity 2 The helper provides more than half the effort to complete the activity 1 Dependent. The helper does all the effort to complete an activity 7 Patient refused to complete or attempt activity 9 The patient did not perform the activity before the current illness or injury 88 Not attempted due to Medical conditions or safety concerns Bathing (FIM): 6 (Washed and dried all parts, in shower. Retrieved towels from bar and turned water on and off. Shower bench, grab bar, hand held shower, long handled sponge) Upper Body (FIM): 5 (setup. Hooked bra in front and turned it around) Lower Body Dressing (FIM): 4 (Doffed socks and shoes with dressing stick. Donned panties with dressing stick. Skirt on over head. CGA when standing to pull pants up and skirt down, FWW) Toileting (FIM): 5 (Managed clothing and hygiene. Pt was incontinent small amount of stool in pants and cleaned it up. Tall toilet, grab bar, FWW) Toilet/Commode Transfer (FIM): 4 (CGA on and off tall toilet, grab bar, FWW. Pt educ for hand placement) Shower Transfer(FIM): 4 (CGA, walked to shower, with FWW, off bench to w/c. Grab bars) Pt left up in bed, all needs met. Education OT Patient Education: Modified ADL techniques, Progress toward Goal/Update tx plan, Rehab process, Safety issues, Transfer techniques OT Short Term Goals Short Term Goals Time Frame: Jan 22, 2017 Toileting(FIM): 3 Toilet/Commode Transfer(FIM): 4 Additional Short Term Goals: 2-Verbalize Understanding, 3-ImproveStrength/Tony 1=Demonstrate adherence to instructed precautions during ADL tasks. 2=Patient will verbalize/demonstrate understanding of assistive devices/ modifications for ADL. 3=Patient will improve strength/tolerance for activity to enable patient to perform ADL's. OT Machine Gun Mechanic Goals Senior Living Goals Time Frame: February 05, 2017 Eating (FIM): 7 Eating (QC): 6 Groomin Oral Hygiene (QC): 6 Bathing(FIM): 6 Shower/Bathe Self (QC): 6 Upper Body Dressing(FIM): 6 Upper Body Dressing (QC): 6 Lower Body Dressing(FIM): 6 Lower Body Dressing (QC): 6 On/Off Footwear (QC): 6 Toileting(FIM): 6 Toileting Hygiene (QC): 6 Toilet/Commode Transfer(FIM): 6 Toilet/Commode Transfer (QC): 6 Shower Transfer(FIM): 6 Additional Goals: 2-Verbalize Understanding, 3-ImproveStrength/Tony 1=Demonstrate adherence to instructed precautions during ADL tasks. 2=Patient will verbalize/demonstrate understanding of assistive devices/ modifications for ADL. 3=Patient will improve strength/tolerance for activity to enable patient to perform ADL's. OT Education/Plan Problem List/Assessment Pt would benefit from skilled OT to increase her independence in basic self care to allow her to safely return home to live with her . Discharge Recommendations Plan/Recommendations: Continue POC Treatment Plan/Plan of Care Patient would benefit from OT for education, treatment and training to promote independence in ADL's, mobility, safety and/or upper extremity function for ADL' s. Plan of Care: ADL Retraining, Functional Mobility, Group Exercise/Act as Ind ( education, exercise, activity tolerance, functional activities, memory), UE Funct Exercise/Act, UE Neuromus Re-Ed/Coord Treatment Duration: February 05, 2017 Visits Per Week: 10-11 Minutes/Day (M-F): 75-90 Minutes/Day (Sat/Simpson): PRN Agreement: Yes Rehab Potential: Good Time/GCodes Start Time: 09:30 Stop Time: 10:30 Total Time Billed (hr/min): 60 Billed Treatment Time visit, 60 minutes ADL DORIS LUU OT Jan 18, 2017 11:04
--- NOTE | 2017-01-18 12:14 | Progress Note-Urology ---
Progress Note-Urology Progress Notes/Assess & Plan Progress/Assessment & Plan TOLERATED URECHOLINE WELL. TOV TODAY Final Diagnosis URINE RETENTION SELENE HUBBARD MD Jan 18, 2017 12:14 pm
--- NOTE | 2017-01-18 14:15 | Occupational Ther Daily Note ---
OT Current Status-Daily Note Subjective Pt seen in room, up in bed, agreeable to OT. No pain mentioned. Appearance Alert, cooperative Mental Status/Objective Functional [place] Measure 0=Not Assessed/NA 4=Minimal Assistance 1=Total Assistance 5=Supervision or Setup 2=Maximal Assistance 6=Modified [place] 3=Moderate Assistance 7=Complete [place] ADL-Treatment Functional [place] Measure 0=Not Assessed/NA 4=Minimal Assistance 1=Total Assistance 5=Supervision or Setup 2=Maximal Assistance 6=Modified [place] 3=Moderate Assistance 7=Complete IndependenceIRFPAI Quality Coding Scale 6 Independent with activity with or without an assistive device 5 Patient requires set up or clean up by helper. Patient completes activity by themselves 4 Supervision or touching assist (CGA). [place] provide cues , steadying assist 3 The helper provides less than half the effort to complete the activity 2 The helper provides more than half the effort to complete the activity 1 Dependent. The helper does all the effort to complete an activity 7 Patient refused to complete or attempt activity 9 The patient did not perform the activity before the current illness or injury 88 Not attempted due to Medical conditions or safety concerns Other Treatment Pt transitioned from supine to sit EOB without assistance, but moving slowly. Sit to stand with CGA, FWW. Walked to www/c and sat with CGA, FWW. pt propelled himself to the gum and did 15 minutes bilat UE exercise on arm bike set at 20W resistance (increased time). Exercise to help with standing during ADLs and transfers. Pt worked at steady pace and did not require any recovery periods. Pt was left up in gym in w/c for PT, all needs met. Education OT Patient Education: Exercise program, Progress toward Goal/Update tx plan Teaching Methods: Discussion OT Short Term Goals Short Term Goals Time Frame: Jan 22, 2017 Toileting(FIM): 3 Toilet/Commode Transfer(FIM): 4 Additional Short Term Goals: 2-Verbalize Understanding, 3-ImproveStrength/Tony 1=Demonstrate adherence to instructed precautions during ADL tasks. 2=Patient will verbalize/demonstrate understanding of assistive devices/ modifications for ADL. 3=Patient will improve strength/tolerance for activity to enable patient to perform ADL's. OT Retirement Goals Retirement Goals Time Frame: February 05, 2017 Eating (FIM): 7 Eating (QC): 6 Groomin Oral Hygiene (QC): 6 Bathing(FIM): 6 Shower/Bathe Self (QC): 6 Upper Body Dressing(FIM): 6 Upper Body Dressing (QC): 6 Lower Body Dressing(FIM): 6 Lower Body Dressing (QC): 6 On/Off Footwear (QC): 6 Toileting(FIM): 6 Toileting Hygiene (QC): 6 Toilet/Commode Transfer(FIM): 6 Toilet/Commode Transfer (QC): 6 Shower Transfer(FIM): 6 Additional Goals: 2-Verbalize Understanding, 3-ImproveStrength/Tony 1=Demonstrate adherence to instructed precautions during ADL tasks. 2=Patient will verbalize/demonstrate understanding of assistive devices/ modifications for ADL. 3=Patient will improve strength/tolerance for activity to enable patient to perform ADL's. OT Education/Plan Problem List/Assessment Pt would benefit from skilled OT to increase her independence in basic self care to allow her to safely return home to live with her . Discharge Recommendations Plan/Recommendations: Continue POC Treatment Plan/Plan of Care Patient would benefit from OT for education, treatment and training to promote independence in ADL's, mobility, safety and/or upper extremity function for ADL' s. Plan of Care: ADL Retraining, Functional Mobility, Group Exercise/Act as Ind ( education, exercise, activity tolerance, functional activities, memory), UE Funct Exercise/Act, UE Neuromus Re-Ed/Coord Treatment Duration: February 05, 2017 Visits Per Week: 10-11 Minutes/Day (M-F): 75-90 Minutes/Day (Sat/Simpson): PRN Agreement: Yes Rehab Potential: Good Time/GCodes Start Time: 13:30 Stop Time: 14:00 Total Time Billed (hr/min): 30 Billed Treatment Time visit, 30 minutes exercise DORIS LUU OT Jan 18, 2017 14:15
--- NOTE | 2017-01-18 15:23 | Physical Therapy Daily Note ---
PT Daily Note-Current Subjective Patient in bed pre tx, agrees to PT, no complaints of pain. Patient is drowsy and states she is pretty worn out. Appearance Patient in bed post tx with nurse call, phone, tray, all needs met. Mental Status Patient Orientation: Normal For Age Transfers Functional [place] Measure 0=Not Assessed/NA 4=Minimal Assistance 1=Total Assistance 5=Supervision or Setup 2=Maximal Assistance 6=Modified [place] 3=Moderate Assistance 7=Complete IndependenceIRFPAI Quality Coding Scale 6 Independent with activity with or without an assistive device 5 Patient requires set up or clean up by helper. Patient completes activity by themselves 4 Supervision or touching assist (CGA). [place] provide cues , steadying assist 3 The helper provides less than half the effort to complete the activity 2 The helper provides more than half the effort to complete the activity 1 Dependent. The helper does all the effort to complete an activity 7 Patient refused to complete or attempt activity 9 The patient did not perform the activity before the current illness or injury 88 Not attempted due to Medical conditions or safety concerns Transfers (B, C, W/C) (FIM): 4 Scootin Rollin Supine to/from Sit: 5 Sit to/from Stand: 4 Bed to/from Chair: 4 Gait Training Gait (FIM): 1 Distance: 30'x5 Gait Level of Assist: 4 Gait Persons Needed: 1 Gait Assistive Device: FWW wheelchair follow, slow ambulation, trendelenburg gait especially when she gets tired Exercises Seated Therapy Exercises: Ankle pumps, Hip flexion, Hip abd/add Seated Reps: 20 LAQ alternating for 5 min Treatments bed mobility and transfers, ambulation, functional strengthening Assessment Current Status: Poor Progress Patient was pretty fatigued this after noon, could not ambulate as far. PT Short Term Goals Short Term Goals Time Frame: Jan 22, 2017 Gait (FIM): 2 Distance (FIM): 1=up to 49 ft Gait Assistive Device: FWW Wheelchair Distance: 150' PT Fabricator Special Items Goals [place] Goals PT Fabricator Special Items Goals Time Frame: February 05, 2017 Transfers (B,C,W/C) (FIM): 6 Sit to Lying (QC): 6 Lying-Sitting on Side/Bed(QC): 6 Sit to Stand (QC): 6 Rollin Roll Left to Right (QC): 6 Chair/Hmq-vz-Socoi Xfer(QC): 6 Car Transfer (QC): 5 Does the Patient Walk: No and Walking Goal IS indicated Gait (FIM): 6 Gait distance (FIM): 3=150 ft Walk 10 feet (QC): 6 Walk 10ft-Uneven Surface(QC): 6 Walk 50ft with 2 Turns (QC): 6 Walk 150 ft (QC): 6 Gait Assistive Device: FWW Does the Pt use WC or Scooter?: Yes Wheelchair (FIM): 6 Wheel 50 feet with 2 turns (QC: 6 Stairs (FIM): 2 # of Steps: 4 1 Step (curb) (QC): 4 4 Steps (QC): 4 12 Steps (QC): 9 Picking up an Object (QC): 4 PT Plan Problem List Problem List: Activity Tolerance, Functional Strength, Safety, Balance, Gait, Transfer, Bed Mobility Treatment/Plan Treatment Plan: Continue Plan of Care Treatment Plan: Bed Mobility, Education, Functional Activity Tony, Functional Strength, Group Therapy, Gait, Safety, Therapeutic Exercise, Transfers Treatment Duration: February 05, 2017 Visits Per Week: 10-15 Minutes/Day (M-F): 60-90 Minutes/Day (Sat/Simpson): prn Safety Risks/Education Patient Education: Gait Training, Transfer Techniques, Correct Positioning, Safety Issues Teaching Recipient: Patient Teaching Methods: Demonstration, Discussion Response to Teaching: Reinforcement Needed Time/GCodes Time In: 1435 Time Out: 1520 Total Billed Treatment Time: 45 Total Billed Treatment 1 visit EX 15 min GT 30 min LALO VILLEGAS PT Jan 18, 2017 15:23
--- NOTE | 2017-01-18 15:39 | Occupational Ther Daily Note ---
OT Current Status-Daily Note Subjective Pt seen in room, up in bed, agreeable to OT. No pain mentioned. Appearance Alert, cooperative Mental Status/Objective Functional [place] Measure 0=Not Assessed/NA 4=Minimal Assistance 1=Total Assistance 5=Supervision or Setup 2=Maximal Assistance 6=Modified [place] 3=Moderate Assistance 7=Complete [place] ADL-Treatment Functional [place] Measure 0=Not Assessed/NA 4=Minimal Assistance 1=Total Assistance 5=Supervision or Setup 2=Maximal Assistance 6=Modified [place] 3=Moderate Assistance 7=Complete IndependenceIRFPAI Quality Coding Scale 6 Independent with activity with or without an assistive device 5 Patient requires set up or clean up by helper. Patient completes activity by themselves 4 Supervision or touching assist (CGA). [place] provide cues , steadying assist 3 The helper provides less than half the effort to complete the activity 2 The helper provides more than half the effort to complete the activity 1 Dependent. The helper does all the effort to complete an activity 7 Patient refused to complete or attempt activity 9 The patient did not perform the activity before the current illness or injury 88 Not attempted due to Medical conditions or safety concerns Other Treatment Pt did 15 reps bilat UE exercise with red theraband, 15 reps bilat UE ex with 1.5# bar with 1# weight and 15 reps bilat UE ex with 1# weight in each hand. Exercises are to strengthen arms to help with sit to stand for ADLs. Pt had a little difficulty switching from one side to the other but could track reps herself. Pt left up in bed, all needs met. OT Short Term Goals Short Term Goals Time Frame: Jan 22, 2017 Toileting(FIM): 3 Toilet/Commode Transfer(FIM): 4 Additional Short Term Goals: 2-Verbalize Understanding, 3-ImproveStrength/Tony 1=Demonstrate adherence to instructed precautions during ADL tasks. 2=Patient will verbalize/demonstrate understanding of assistive devices/ modifications for ADL. 3=Patient will improve strength/tolerance for activity to enable patient to perform ADL's. OT Window Installation Subcontractor Goals Window Installation Subcontractor Goals Time Frame: February 05, 2017 Eating (FIM): 7 Eating (QC): 6 Groomin Oral Hygiene (QC): 6 Bathing(FIM): 6 Shower/Bathe Self (QC): 6 Upper Body Dressing(FIM): 6 Upper Body Dressing (QC): 6 Lower Body Dressing(FIM): 6 Lower Body Dressing (QC): 6 On/Off Footwear (QC): 6 Toileting(FIM): 6 Toileting Hygiene (QC): 6 Toilet/Commode Transfer(FIM): 6 Toilet/Commode Transfer (QC): 6 Shower Transfer(FIM): 6 Additional Goals: 2-Verbalize Understanding, 3-ImproveStrength/Tony 1=Demonstrate adherence to instructed precautions during ADL tasks. 2=Patient will verbalize/demonstrate understanding of assistive devices/ modifications for ADL. 3=Patient will improve strength/tolerance for activity to enable patient to perform ADL's. OT Education/Plan Problem List/Assessment Pt would benefit from skilled OT to increase her independence in basic self care to allow her to safely return home to live with her . Discharge Recommendations Plan/Recommendations: Continue POC Treatment Plan/Plan of Care Patient would benefit from OT for education, treatment and training to promote independence in ADL's, mobility, safety and/or upper extremity function for ADL' s. Plan of Care: ADL Retraining, Functional Mobility, Group Exercise/Act as Ind ( education, exercise, activity tolerance, functional activities, memory), UE Funct Exercise/Act, UE Neuromus Re-Ed/Coord Treatment Duration: February 05, 2017 Visits Per Week: 10-11 Minutes/Day (M-F): 75-90 Minutes/Day (Sat/Simpson): PRN Agreement: Yes Rehab Potential: Good Time/GCodes Start Time: 13:00 Stop Time: 13:30 Total Time Billed (hr/min): 30 Billed Treatment Time visit, 30 minutes exercise DORIS LUU OT Jan 18, 2017 15:39
[2017-01-18] MEDS: oxyCODONE/APAP 5/325MG (PERCOCET 5) TABLET PO PRN (17:38)
[2017-01-18] MEDS: ALFUZOSIN HCL 10 MG TAB (UROXATRAL) PO SCH (17:38)
[2017-01-18] MEDS: warFARin 5 MG (COUMADIN) TAB PO SCH (17:38)
[2017-01-18 18:12] VITALS: BP 120/70
[2017-01-18] MEDS: traZODone 50 MG (DESYREL) TAB PO SCH (21:11)
[2017-01-18] MEDS: LIDODERM PATCH REMOVAL TP SCH (21:12)
[2017-01-19 05:00] VITALS: BP 110/67
[2017-01-19] MEDS: BETHANECHOL 25 MG (URECHOLINE) TAB PO SCH ×4 (05:25→20:35)
[2017-01-19 06:07] LABS: PROTHROMBIN TIME PATIENT 22.8 SEC (12.2-14.7)
[2017-01-19] MEDS: KCL 10 MEQ TAB (MICRO K) PO PRN (08:33)
[2017-01-19] MEDS: DULoxetine 30 MG (CYMBALTA) CAP PO SCH (08:33)
--- NOTE | 2017-01-19 08:33 | Progress Note (SOAP) ---
Subjective Subjective/Events-last exam debility. Patient getting around better. patient walking better. Patient's urine shows 2 organisms. Patient complaining of urinary problems Objective Exam Vital Signs Date Time Temp Pulse Resp B/P (MAP) Pulse Ox O2 Delivery O2 Flow Rate FiO2 01/19/17 05:00 98.4 58 18 110/67 95 NIV/CPAP 01/18/17 20:45 Room Air 01/18/17 18:12 96.7 75 16 120/70 96 01/18/17 11:00 95/59 (71) 64/38 (47) 65/37 (46) I & O 01/19/17 07:00 Intake Total 1500 ml Output Total 1800 ml Balance -300 ml Capillary Refill : General Appearance: No Apparent Distress, WD/WN HEENT: Normal ENT Inspection Neck: Full Range of Motion, Normal Inspection Respiratory: Chest Non Tender, Lungs Clear, No Accessory Muscle Use, No Respiratory Distress Cardiovascular: Regular Rate, Rhythm, No Murmur Gastrointestinal: non tender Results Lab Laboratory Tests 01/19/17 05:43: Prothrombin Time 22.8H, INR Comment 2.0H Microbiology 01/17/17 Urine Culture - Final, Complete Escherichia Coli Klebsiella Pneumoniae Assessment/Plan Assessment/Plan Assess & Plan/Chief Complaint Debility. A. fib. Herpes zoster. Patient now in sinus rhythm. Left foot drop. Weight loss 41 pounds. . Debility. Herpes zoster. 01/10/17.. . 01/11/17. Debility. A. fib. Herpes zoster. Patient unable to void. Patient have the Mi catheter put back in. . 01/12/17. Debility. Atrial fib. Herpes zoster Patient now in sinus rhythm. . 01/15/17. Debility. A. fib history. Knee pain. X-ray shows arthritis of knee and no acute process. . 01/16/17. Debility. A. fib history. Patient not able to void. Patient feel she is improving.. . 01/17/17. Debility. A. fib history. Patient has Mi catheter put back in. Patient states she's constipated... . 01/24/17. Debility . A. fib history area Urine showed nitrate positive. Patient voices no complaints. . 01/19/17. Debility.Atrial fib history. Patient getting around better. Patient walking better. Patient feel she still has a urinary problem Clinical Quality Measures DVT/VTE Risk/Contraindication: Risk Factor Score Per Nursin RFS Level Per Nursing on Admit: 4+=Very High BOUBACAR MARR DO Jan 19, 2017 08:33
[2017-01-19] MEDS: PREGABALIN 100 MG (LYRICA) CAPSULE PO SCH ×2 (08:34→20:34)
[2017-01-19] MEDS: DOCUSATE SODIUM 100 MG (COLACE) CAP PO SCH ×2 (08:34→20:35)
[2017-01-19] MEDS: FUROSEMIDE 20 MG (LASIX) TAB PO PRN (08:34)
[2017-01-19] MEDS: LIDOCAINE (LIDODERM) 5% PATCH TOP SCH (08:35)
[2017-01-19 08:36] VITALS: BP 90/55
[2017-01-19] MEDS: DIGOXIN 0.125 MG (LANOXIN) TAB PO SCH (08:41)
[2017-01-19] MEDS: AMIODARONE 200 MG (CORDARONE) TAB PO SCH ×2 (09:14→20:34)
[2017-01-19 09:22] VITALS: BP 100/64
--- NOTE | 2017-01-19 10:44 | Physical Therapy Daily Note ---
PT Daily Note-Current Subjective Patient in recliner pre tx, agrees to PT, no complaints of pain. Patient states her right arm gave out earlier and is pretty weak and tired today. We will adjust her therapy to try to give her right arm a break this morning. Appearance Patient in recliner post tx with nurse call, phone, tray, all needs met. Mental Status Patient Orientation: Normal For Age Transfers Functional [place] Measure 0=Not Assessed/NA 4=Minimal Assistance 1=Total Assistance 5=Supervision or Setup 2=Maximal Assistance 6=Modified [place] 3=Moderate Assistance 7=Complete IndependenceIRFPAI Quality Coding Scale 6 Independent with activity with or without an assistive device 5 Patient requires set up or clean up by helper. Patient completes activity by themselves 4 Supervision or touching assist (CGA). [place] provide cues , steadying assist 3 The helper provides less than half the effort to complete the activity 2 The helper provides more than half the effort to complete the activity 1 Dependent. The helper does all the effort to complete an activity 7 Patient refused to complete or attempt activity 9 The patient did not perform the activity before the current illness or injury 88 Not attempted due to Medical conditions or safety concerns Transfers (B, C, W/C) (FIM): 4 Sit to/from Stand: 4 Bed to/from Chair: 4 CGA, no LOB and right arm did not give out. Wheelchair Training Wheelchair (FIM): 6 Distance: 150'x2 Type of Wheelchair: Manual Exercises Seated Therapy Exercises: Ankle pumps, Hip flexion, Hip abd/add Seated Reps: 20 LAQ alternating for 5 min NuStep Minutes: 25 NuStep Workload: 5 Treatments transfers, wheelchair mobility, functional strengthening Assessment Current Status: Poor Progress no change in mobility, right arm weakness PT Short Term Goals Short Term Goals Time Frame: Jan 22, 2017 Gait (FIM): 2 Distance (FIM): 1=up to 49 ft Gait Assistive Device: FWW Wheelchair Distance: 150' PT Residential Goals Media Buyer Goals PT Media Buyer Goals Time Frame: February 05, 2017 Transfers (B,C,W/C) (FIM): 6 Sit to Lying (QC): 6 Lying-Sitting on Side/Bed(QC): 6 Sit to Stand (QC): 6 Rollin Roll Left to Right (QC): 6 Chair/Nnb-jo-Dcxui Xfer(QC): 6 Car Transfer (QC): 5 Does the Patient Walk: No and Walking Goal IS indicated Gait (FIM): 6 Gait distance (FIM): 3=150 ft Walk 10 feet (QC): 6 Walk 10ft-Uneven Surface(QC): 6 Walk 50ft with 2 Turns (QC): 6 Walk 150 ft (QC): 6 Gait Assistive Device: FWW Does the Pt use WC or Scooter?: Yes Wheelchair (FIM): 6 Wheel 50 feet with 2 turns (QC: 6 Stairs (FIM): 2 # of Steps: 4 1 Step (curb) (QC): 4 4 Steps (QC): 4 12 Steps (QC): 9 Picking up an Object (QC): 4 PT Plan Problem List Problem List: Activity Tolerance, Functional Strength, Safety, Balance, Gait, Transfer, Bed Mobility Treatment/Plan Treatment Plan: Continue Plan of Care Treatment Plan: Bed Mobility, Education, Functional Activity Tony, Functional Strength, Group Therapy, Gait, Safety, Therapeutic Exercise, Transfers Treatment Duration: February 05, 2017 Visits Per Week: 10-15 Minutes/Day (M-F): 60-90 Minutes/Day (Sat/Simpson): prn Safety Risks/Education Patient Education: Transfer Techniques, Correct Positioning, W/C Management, Safety Issues Teaching Recipient: Patient Teaching Methods: Demonstration, Discussion Response to Teaching: Reinforcement Needed Time/GCodes Time In: 945 Time Out: 1045 Total Billed Treatment Time: 60 Total Billed Treatment 1 visit EX 35min WCH 15 min FA 10 min LALO VILLEGAS PT Jan 19, 2017 10:44
--- NOTE | 2017-01-19 11:33 | Occupational Ther Daily Note ---
OT Current Status-Daily Note Subjective Pt seen in room, up in bed, agreeable to OT. Would like to shower. No pain mentioned. Appearance Alert, cooperative Mental Status/Objective Functional [place] Measure 0=Not Assessed/NA 4=Minimal Assistance 1=Total Assistance 5=Supervision or Setup 2=Maximal Assistance 6=Modified [place] 3=Moderate Assistance 7=Complete [place] ADL-Treatment Pt stated she has been walking to the bathroom and has had some incontinence issues (nursing is aware). Pt walked from bed to shower with CGA, FWW. Transferred to shower bench and noted some buckling, seeming to come from hips. Pt was using grab bar and managed transfer, CGA. She also walked from shower to recliner to dress with CGA, FWW. Walked again from recliner to sink and stood, supporting herself with her arms and FWW, to brush teeth. When walking back to her recliner, she said her R arm was "giving out". She was not able to maintain weight bearing with R arm and had to sit in arm chair. Pt left up in arm chair with call light, all needs met. Functional [place] Measure 0=Not Assessed/NA 4=Minimal Assistance 1=Total Assistance 5=Supervision or Setup 2=Maximal Assistance 6=Modified [place] 3=Moderate Assistance 7=Complete IndependenceIRFPAI Quality Coding Scale 6 Independent with activity with or without an assistive device 5 Patient requires set up or clean up by helper. Patient completes activity by themselves 4 Supervision or touching assist (CGA). [place] provide cues , steadying assist 3 The helper provides less than half the effort to complete the activity 2 The helper provides more than half the effort to complete the activity 1 Dependent. The helper does all the effort to complete an activity 7 Patient refused to complete or attempt activity 9 The patient did not perform the activity before the current illness or injury 88 Not attempted due to Medical conditions or safety concerns Grooming (FIM): 4 (CGA when standing at sink, FWW for support. ) Bathing (FIM): 6 (Washed and dried all parts, retrieved towels from bar, turned water off and on. Shower bench, grab bars, hand held shower, long handled sponge.) Upper Body (FIM): 5 (Setup. Able to hook bra in front) Lower Body Dressing (FIM): 4 (CGA- SBA when standing to pull pants up. Donned socks with sock aid, R shoe with long shoe horn. Has difficulty getting toes into L shoe, with AFO on but can tie shoe and fasten AFO.) Transfers (B, C, W/C) (FIM): 4 (CGA, FWW) Shower Transfer(FIM): 4 (CGA, shower bench, FWW) Education OT Patient Education: Progress toward Goal/Update tx plan, Safety issues, Transfer techniques, Use of adapted equipment Teaching Recipient: Patient Response to Teaching: Verbalize Understanding OT Short Term Goals Short Term Goals Time Frame: Jan 22, 2017 Toileting(FIM): 3 Toilet/Commode Transfer(FIM): 4 Additional Short Term Goals: 2-Verbalize Understanding, 3-ImproveStrength/Tony 1=Demonstrate adherence to instructed precautions during ADL tasks. 2=Patient will verbalize/demonstrate understanding of assistive devices/ modifications for ADL. 3=Patient will improve strength/tolerance for activity to enable patient to perform ADL's. OT Group Home Goals Manager [employer] Goals Time Frame: February 05, 2017 Eating (FIM): 7 Eating (QC): 6 Groomin Oral Hygiene (QC): 6 Bathing(FIM): 6 Shower/Bathe Self (QC): 6 Upper Body Dressing(FIM): 6 Upper Body Dressing (QC): 6 Lower Body Dressing(FIM): 6 Lower Body Dressing (QC): 6 On/Off Footwear (QC): 6 Toileting(FIM): 6 Toileting Hygiene (QC): 6 Toilet/Commode Transfer(FIM): 6 Toilet/Commode Transfer (QC): 6 Shower Transfer(FIM): 6 Additional Goals: 2-Verbalize Understanding, 3-ImproveStrength/Tony 1=Demonstrate adherence to instructed precautions during ADL tasks. 2=Patient will verbalize/demonstrate understanding of assistive devices/ modifications for ADL. 3=Patient will improve strength/tolerance for activity to enable patient to perform ADL's. OT Education/Plan Problem List/Assessment Pt would benefit from skilled OT to increase her independence in basic self care to allow her to safely return home to live with her . Discharge Recommendations Plan/Recommendations: Continue POC Treatment Plan/Plan of Care Patient would benefit from OT for education, treatment and training to promote independence in ADL's, mobility, safety and/or upper extremity function for ADL' s. Plan of Care: ADL Retraining, Functional Mobility, Group Exercise/Act as Ind ( education, exercise, activity tolerance, functional activities, memory), UE Funct Exercise/Act, UE Neuromus Re-Ed/Coord Treatment Duration: February 05, 2017 Visits Per Week: 10-11 Minutes/Day (M-F): 75-90 Minutes/Day (Sat/Simpson): PRN Agreement: Yes Rehab Potential: Good Time/GCodes Start Time: 08:00 Stop Time: 09:00 Total Time Billed (hr/min): 60 Billed Treatment Time visit, 60 minutes ADL DORIS LUU OT Jan 19, 2017 11:33
[2017-01-19 12:35] VITALS: BP_SYST 116; BP_SYST 70; BP_DIAS 49; BP_DIAS 69
--- NOTE | 2017-01-19 14:50 | Therapy Group Daily Note ---
Therapy Daily Group Note Patient Education Topic Other List Below (ARU description, Stroke education) Exercises LE Seated Exercise, Fine Motor, UE Exercise Other/Notes Pt maneuvered w/c to OT/PT group. OT/PT group consisted of introductions (name, place living, 1st vehicle driven), socialization, ARU description/expectations, stroke education, UE/LE seated exercises, fine motor with visual perception activities. Pt contributed to group discussions appropriately and ask questions concerning educational topics. Pt was able to complete UE/LE exercises without difficulty. Pt was able to complete activities and assist other pt's with task. After group, pt maneuvered w/c to room. Call light/ phone in reach. All needs met in room. Start Time: 13:00 Stop Time: 14:30 Total Billed Treatment Time: 90 Total Billed Treatment 1-GRP CECILIA LEIJA Jan 19, 2017 14:50
--- NOTE | 2017-01-19 15:34 | Progress Note-Urology ---
Progress Note-Urology Progress Notes/Assess & Plan Progress/Assessment & Plan VOIDING ON OWN, PVR 140, HAS UTI STARTED ON BACTRIM DS, CONTINUE SAME Final Diagnosis URINE RETENTION SELENE HUBBARD MD Jan 19, 2017 3:34 pm
[2017-01-19] MEDS: TRIM/SULFAMETH 160/800 (SEPTRA DS) TAB PO SCH (17:01)
[2017-01-19] MEDS: warFARin 5 MG (COUMADIN) TAB PO SCH (17:01)
[2017-01-19] MEDS: ALFUZOSIN HCL 10 MG TAB (UROXATRAL) PO SCH (17:01)
[2017-01-19 18:32] VITALS: BP 107/67
[2017-01-19] MEDS: traZODone 50 MG (DESYREL) TAB PO SCH (20:34)
[2017-01-19] MEDS: LIDODERM PATCH REMOVAL TP SCH (20:35)
[2017-01-20 05:32] VITALS: BP 122/65
[2017-01-20 06:04] LABS: INR 2.6 (0.8-1.4); PROTHROMBIN TIME PATIENT 27.8 SEC (12.2-14.7)
[2017-01-20] MEDS: TRIM/SULFAMETH 160/800 (SEPTRA DS) TAB PO SCH ×2 (06:31→16:44)
[2017-01-20] MEDS: BETHANECHOL 25 MG (URECHOLINE) TAB PO SCH ×4 (06:32→20:24)
--- NOTE | 2017-01-20 07:53 | PM & R (SOAP) Progress Note ---
Subjective Subjective/Events-last exam Patient was seen in her room this evening Appreciate DR Roa and Garcia and therapy notes.Patient voiding at this time on her own, Patient min assist for transfers Objective Exam Last Set of Vital Signs Vital Signs Date Time Temp Pulse Resp B/P (MAP) Pulse Ox O2 Delivery O2 Flow Rate FiO2 01/20/17 05:32 97.5 62 16 122/65 95 NIV CPAP Capillary Refill : I&O Intake and Output 01/20/17 00:00 Intake Total 1350 ml Output Total 2050 ml Balance -700 ml Intake Oral 1350 ml Output Urine Total 2050 ml Bladder Scan Volume Amount 141 ml 141 ml # Bowel Movements 2 General: Alert, Oriented X3, Cooperative, No Acute Distress HEENT: Atraumatic, PERRLA, EOMI, Mucous Memb Moist/[place], Other (alopecia) Neck: Supple, No JVD Lungs: Clear to Auscultation Heart: Regular Rate Abdomen: Normal Bowel Sounds, Soft, No Tenderness Extremities: Other (trace edema) Neuro: Other (weakness and decreased sensation distal LLE) Results Lab Laboratory Tests 01/17/17 08:00: Urine Color YELLOW, Urine Clarity SLIGHTLY CLOUDY, Urine pH 6, Urine Specific [place] 1.015L, Urine Protein 2+H, Urine Glucose (UA) NEGATIVE, Urine Ketones NEGATIVE, Urine Nitrite POSITIVEH, Urine Bilirubin NEGATIVE, Urine Urobilinogen NORMAL, Urine Leukocyte Esterase 3+H, Urine RBC (Auto) 4+H, Urine RBC 5-10H, Urine WBC >100H, Urine Squamous Epithelial Cells 0-2, Urine Crystals NONE, Urine Bacteria LARGEH, Urine Casts NONE, Urine Mucus NEGATIVE, Urine Culture Indicated YES 01/18/17 06:00: Prothrombin Time 22.3H, INR Comment 2.0H 01/19/17 05:43: Prothrombin Time 22.8H, INR Comment 2.0H 01/20/17 05:35: Prothrombin Time 27.8H, INR Comment 2.6H Microbiology 01/17/17 Urine Culture - Final, Complete Escherichia Coli Klebsiella Pneumoniae Assessment/Plan Assessment Lumbar SS with Myelopathy/weakness and impaired sensation LLE Zoster treated Breast CA s/p lumpectomy and chemo with Peripheral neuropathy and weakness Urinary retention now voiding 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
[2017-01-20 09:05] VITALS: BP 112/68
[2017-01-20] MEDS: DIGOXIN 0.125 MG (LANOXIN) TAB PO SCH (09:08)
[2017-01-20] MEDS: DULoxetine 30 MG (CYMBALTA) CAP PO SCH (09:08)
[2017-01-20] MEDS: DOCUSATE SODIUM 100 MG (COLACE) CAP PO SCH ×2 (09:09→20:24)
[2017-01-20] MEDS: KCL 10 MEQ TAB (MICRO K) PO PRN (09:09)
[2017-01-20] MEDS: PREGABALIN 100 MG (LYRICA) CAPSULE PO SCH ×2 (09:09→20:24)
[2017-01-20] MEDS: FUROSEMIDE 20 MG (LASIX) TAB PO PRN (09:09)
[2017-01-20] MEDS: AMIODARONE 200 MG (CORDARONE) TAB PO SCH ×2 (09:09→20:24)
[2017-01-20] MEDS: LIDOCAINE (LIDODERM) 5% PATCH TOP SCH (09:11)
--- NOTE | 2017-01-20 09:47 | Physical Therapy Daily Note ---
PT Daily Note-Current Subjective Patient is very agreeable to participate with PT. Pain Numeric Pain Scale: 5-Moderate Pain Location: Right Location Body Site: Arm Pain Description: Ache Mental Status Patient Orientation: Normal For Age Transfers Functional [place] Measure 0=Not Assessed/NA 4=Minimal Assistance 1=Total Assistance 5=Supervision or Setup 2=Maximal Assistance 6=Modified [place] 3=Moderate Assistance 7=Complete IndependenceIRFPAI Quality Coding Scale 6 Independent with activity with or without an assistive device 5 Patient requires set up or clean up by helper. Patient completes activity by themselves 4 Supervision or touching assist (CGA). [place] provide cues , steadying assist 3 The helper provides less than half the effort to complete the activity 2 The helper provides more than half the effort to complete the activity 1 Dependent. The helper does all the effort to complete an activity 7 Patient refused to complete or attempt activity 9 The patient did not perform the activity before the current illness or injury 88 Not attempted due to Medical conditions or safety concerns Transfers (B, C, W/C) (FIM): 3 Scootin Sit to/from Stand: 3 Sit to Stand (QC): 3 slight retropulsion with sit to stand Gait Training Does the Patient Walk?: Yes Gait (FIM): 4 Distance (FIM): 3=150 ft Distance: 150' Walk 10 feet (QC): 4 Walk 50 ft with 2 Turns(QC): 4 Walk 150 ft (QC): 4 Gait Level of Assist: 4 Gait Persons Needed: 1 Gait Assistive Device: FWW slightly unsteady requiring standing recovery period Assessment Patient tolerated treatment well and is up in recliner with nursing present. PT Short Term Goals Short Term Goals Time Frame: Jan 22, 2017 Gait (FIM): 2 Distance (FIM): 1=up to 49 ft Gait Assistive Device: FWW Wheelchair Distance: 150'x2 [address] F[address] Goals Ct Scan Technologist Goals PT Ct Scan Technologist Goals Time Frame: February 05, 2017 Transfers (B,C,W/C) (FIM): 6 Sit to Lying (QC): 6 Lying-Sitting on Side/Bed(QC): 6 Sit to Stand (QC): 6 Rollin Roll Left to Right (QC): 6 Chair/Yxd-to-Opiit Xfer(QC): 6 Car Transfer (QC): 5 Does the Patient Walk: No and Walking Goal IS indicated Gait (FIM): 6 Gait distance (FIM): 3=150 ft Walk 10 feet (QC): 6 Walk 10ft-Uneven Surface(QC): 6 Walk 50ft with 2 Turns (QC): 6 Walk 150 ft (QC): 6 Gait Assistive Device: FWW Does the Pt use WC or Scooter?: Yes Wheelchair (FIM): 6 Wheel 50 feet with 2 turns (QC: 6 Stairs (FIM): 2 # of Steps: 4 1 Step (curb) (QC): 4 4 Steps (QC): 4 12 Steps (QC): 9 Picking up an Object (QC): 4 PT Plan Treatment/Plan Treatment Plan: Continue Plan of Care Treatment Plan: Bed Mobility, Education, Functional Activity Tony, Functional Strength, Group Therapy, Gait, Safety, Therapeutic Exercise, Transfers Treatment Duration: February 05, 2017 Visits Per Week: 10-15 Minutes/Day (M-F): 60-90 Minutes/Day (Sat/Simpson): prn Time/GCodes Time In: 907 Time Out: 922 Total Billed Treatment Time: 15 Total Billed Treatment 1 visit GT [address] PT Jan 20, 2017 09:47
--- NOTE | 2017-01-20 10:17 | Progress Note-Urology ---
Progress Note-Urology Progress Notes/Assess & Plan Progress/Assessment & Plan CONTINUES TO VOID ON HER OWN BUT HAS TO STRAIN AND PUSH ON BLADDER. TOLERATES URECHOLINE 25MG QID WELL, WE WILL INCREASE TO 50 AC AND HS Final Diagnosis URINE RETENTION SELENE HUBBARD MD Jan 20, 2017 10:17 am
[2017-01-20 18:00] VITALS: BP 149/81
[2017-01-20] MEDS: ALFUZOSIN HCL 10 MG TAB (UROXATRAL) PO SCH (18:39)
[2017-01-20] MEDS: warFARin 5 MG (COUMADIN) TAB PO SCH (18:39)
[2017-01-20] MEDS: traZODone 50 MG (DESYREL) TAB PO SCH (20:24)
[2017-01-20] MEDS: LIDODERM PATCH REMOVAL TP SCH (20:24)
[2017-01-21 04:16] VITALS: BP 121/74
[2017-01-21 05:50] LABS: PROTHROMBIN TIME PATIENT 30.8 SEC (12.2-14.7)
[2017-01-21] MEDS: TRIM/SULFAMETH 160/800 (SEPTRA DS) TAB PO SCH ×2 (06:16→17:10)
[2017-01-21] MEDS: BETHANECHOL 25 MG (URECHOLINE) TAB PO SCH ×4 (06:16→21:17)
[2017-01-21 08:58] VITALS: BP 116/71
[2017-01-21] MEDS: KCL 10 MEQ TAB (MICRO K) PO PRN (09:02)
[2017-01-21] MEDS: AMIODARONE 200 MG (CORDARONE) TAB PO SCH ×2 (09:02→21:18)
[2017-01-21] MEDS: DIGOXIN 0.125 MG (LANOXIN) TAB PO SCH (09:02)
[2017-01-21] MEDS: DULoxetine 30 MG (CYMBALTA) CAP PO SCH (09:03)
[2017-01-21] MEDS: LIDOCAINE (LIDODERM) 5% PATCH TOP SCH (09:03)
[2017-01-21] MEDS: DOCUSATE SODIUM 100 MG (COLACE) CAP PO SCH ×3 (09:03→21:18)
[2017-01-21] MEDS: FUROSEMIDE 20 MG (LASIX) TAB PO PRN (09:03)
[2017-01-21] MEDS: PREGABALIN 100 MG (LYRICA) CAPSULE PO SCH ×2 (09:21→21:18)
[2017-01-21] MEDS: warFARin 5 MG (COUMADIN) TAB PO SCH (17:10)
[2017-01-21] MEDS: ALFUZOSIN HCL 10 MG TAB (UROXATRAL) PO SCH (17:11)
[2017-01-21 17:45] VITALS: BP 123/72
[2017-01-21] MEDS: traZODone 50 MG (DESYREL) TAB PO SCH (21:18)
[2017-01-21] MEDS: LIDODERM PATCH REMOVAL TP SCH (21:18)
[2017-01-22] MEDS: TRIM/SULFAMETH 160/800 (SEPTRA DS) TAB PO SCH ×2 (05:56→17:07)
[2017-01-22] MEDS: BETHANECHOL 25 MG (URECHOLINE) TAB PO SCH ×4 (05:56→20:22)
[2017-01-22 06:24] VITALS: BP 117/70
[2017-01-22 06:34] LABS: INR 3.3 (0.8-1.4); PROTHROMBIN TIME PATIENT 33.5 SEC (12.2-14.7)
--- NOTE | 2017-01-22 08:40 | Progress Note (SOAP) ---
Subjective Subjective/Events-last exam debility. Patient complaining of her tremors in her hands Objective Exam Vital Signs Date Time Temp Pulse Resp B/P (MAP) Pulse Ox O2 Delivery O2 Flow Rate FiO2 01/22/17 06:24 96.9 67 16 117/70 96 NIV CPAP 01/21/17 21:00 Room Air 01/21/17 17:45 96.9 64 18 123/72 99 Room Air 01/21/17 08:58 68 18 116/71 97 Room Air 01/21/17 08:45 Room Air I & O 01/22/17 07:00 Intake Total 1600 ml Balance 1600 ml Capillary Refill : General Appearance: No Apparent Distress, WD/WN HEENT: Normal ENT Inspection Neck: Normal Inspection Respiratory: No Accessory Muscle Use, No Respiratory Distress Results Lab Laboratory Tests 01/22/17 05:18: Prothrombin Time 33.5H, INR Comment 3.3H Microbiology 01/17/17 Urine Culture - Final, Complete Escherichia Coli Klebsiella Pneumoniae Assessment/Plan Assessment/Plan Assess & Plan/Chief Complaint Debility. A. fib. Herpes zoster. Patient now in sinus rhythm. Left foot drop. Weight loss 41 pounds. . Debility. Herpes zoster. 01/10/17.. . 01/11/17. Debility. A. fib. Herpes zoster. Patient unable to void. Patient have the Mi catheter put back in. . 01/12/17. Debility. Atrial fib. Herpes zoster Patient now in sinus rhythm. . 01/15/17. Debility. A. fib history. Knee pain. X-ray shows arthritis of knee and no acute process. . 01/16/17. Debility. A. fib history. Patient not able to void. Patient feel she is improving.. . 01/17/17. Debility. A. fib history. Patient has Mi catheter put back in. Patient states she's constipated... . 01/24/17. Debility . A. fib history area Urine showed nitrate positive. Patient voices no complaints. . 01/19/17. Debility.Atrial fib history. Patient getting around better. Patient walking better. Patient feel she still has a urinary problem . 01/22/17 debility. A. fib area Herpes zoster. Patient in sinus rhythm. Patient complaining of tremor of hands Clinical Quality Measures DVT/VTE Risk/Contraindication: Risk Factor Score Per Nursin RFS Level Per Nursing on Admit: 4+=Very High BOUBACAR MARR DO Jan 22, 2017 08:40
--- NOTE | 2017-01-22 08:54 | Progress Note-Urology ---
Progress Note-Urology Progress Notes/Assess & Plan Progress/Assessment & Plan VOIDING BETTER. SAYS LESS STRAINING. TOLERATES URECHOLINE WELL Final Diagnosis URINE RETENTION SELENE HUBBARD MD Jan 22, 2017 8:54 am
--- NOTE | 2017-01-22 09:30 | Physical Therapy Daily Note ---
PT Daily Note-Current Subjective Patient in bed pre tx, agrees to PT, no complaints of pain. Patient will be discharging tomorrow. Appearance Patient in wheelchair at bedside post tx with nurse call, phone, tray, all needs met. Mental Status Patient Orientation: Normal For Age Transfers Functional [place] Measure 0=Not Assessed/NA 4=Minimal Assistance 1=Total Assistance 5=Supervision or Setup 2=Maximal Assistance 6=Modified [place] 3=Moderate Assistance 7=Complete IndependenceIRFPAI Quality Coding Scale 6 Independent with activity with or without an assistive device 5 Patient requires set up or clean up by helper. Patient completes activity by themselves 4 Supervision or touching assist (CGA). [place] provide cues , steadying assist 3 The helper provides less than half the effort to complete the activity 2 The helper provides more than half the effort to complete the activity 1 Dependent. The helper does all the effort to complete an activity 7 Patient refused to complete or attempt activity 9 The patient did not perform the activity before the current illness or injury 88 Not attempted due to Medical conditions or safety concerns Transfers (B, C, W/C) (FIM): 5 Scootin Rollin Roll Left to Right (QC): 6 Supine to/from Sit: 6 Sit to/from Stand: 5 Sit to Lying (QC): 6 Sit to Stand (QC): 4 Chair/Aed-ky-Osvxz Xfer(QC): 4 Bed to/from Chair: 5 Car Transfer (QC): 88 Patient performs bed mobility with mod I and transfers with SBA, she has more trouble from low surfaces. Gait Training Gait (FIM): 2 Distance: 100' Walk 10 feet (QC): 4 Walk 50 ft with 2 Turns(QC): 4 Walk 150 ft (QC): 88 Walking 10ft/uneven surface-QC: 88 Gait Level of Assist: 4 Gait Persons Needed: 1 Gait Assistive Device: FWW Patient can ambulate 100' with a rolling walker with CGA and a left side AFO. Patient is a little weak and shaky today, needs several standing rest breaks to rest her right arm which wears out quickly. Patient cannot walk on uneven surfaces safely at this time. Wheelchair Training Does the Pt Use a Wheelchair?: Yes Wheelchair (FIM): 6 Distance: 150'x2 Wheel 50 ft with 2 turns (QC): 6 Wheel 150 ft (QC): 6 Type of Wheelchair: Manual Stair Training Stair Training: Handrails/: uses walker Stairs (FIM): 1 #of Steps: 1 1 Step (curb) (QC): 4 Stairs: Pattern: Step to Level of Assist: 4 Patient can go up and down 1 step using a rolling walker with CGA and cues for foot placement, patient is very weak and shaky and cannot do more than one step today. Balance Picking up an Object (QC): 88 Exercises LAQ alternating for 5 min, sit to stand at the edge of the mat at progressively lower heights 4 sets of 5 Treatments bed mobility and transfers, ambulation, wheelchair mobility, stair training, functional strengthening Assessment Current Status: Poor Progress no change in mobility PT Short Term Goals Short Term Goals Time Frame: Jan 22, 2017 Gait (FIM): 2 Distance (FIM): 1=up to 49 ft Gait Assistive Device: FWW Wheelchair Distance: 150'x2 PT Fdc Goals Fdc Goals PT Parts Sales Associate Goals Time Frame: February 05, 2017 Transfers (B,C,W/C) (FIM): 6 Sit to Lying (QC): 6 (met) Lying-Sitting on Side/Bed(QC): 6 (met) Sit to Stand (QC): 6 Rollin (met) Roll Left to Right (QC): 6 (met) Chair/Jot-da-Xqdau Xfer(QC): 6 Car Transfer (QC): 5 Does the Patient Walk: No and Walking Goal IS indicated Gait (FIM): 6 Gait distance (FIM): 3=150 ft Walk 10 feet (QC): 6 Walk 10ft-Uneven Surface(QC): 6 Walk 50ft with 2 Turns (QC): 6 Walk 150 ft (QC): 6 Gait Assistive Device: FWW Does the Pt use WC or Scooter?: Yes Wheelchair (FIM): 6 Wheel 50 feet with 2 turns (QC: 6 (met) Stairs (FIM): 2 # of Steps: 4 1 Step (curb) (QC): 4 4 Steps (QC): 4 12 Steps (QC): 9 Picking up an Object (QC): 4 PT Plan Problem List Problem List: Activity Tolerance, Functional Strength, Safety, Balance, Gait, Transfer Treatment/Plan Treatment Plan: Continue Plan of Care Treatment Plan: Bed Mobility, Education, Functional Activity Tony, Functional Strength, Group Therapy, Gait, Safety, Therapeutic Exercise, Transfers Treatment Duration: February 05, 2017 Visits Per Week: 10-15 Minutes/Day (M-F): 60-90 Minutes/Day (Sat/Simpson): prn Safety Risks/Education Patient Education: Gait Training, Transfer Techniques, Steps, Correct Positioning, W/C Management, Safety Issues Teaching Recipient: Patient Teaching Methods: Demonstration, Discussion Response to Teaching: Reinforcement Needed Time/GCodes Time In: 800 Time Out: 845 Total Billed Treatment Time: 45 Total Billed Treatment 1 visit EX 15 min GT 15 min WCH 15 min LALO VILLEGAS PT Jan 22, 2017 09:30
[2017-01-22] MEDS: DOCUSATE SODIUM 100 MG (COLACE) CAP PO SCH ×2 (09:42→20:22)
[2017-01-22] MEDS: PREGABALIN 100 MG (LYRICA) CAPSULE PO SCH ×2 (09:43→20:22)
[2017-01-22] MEDS: LIDOCAINE (LIDODERM) 5% PATCH TOP SCH (09:43)
[2017-01-22] MEDS: DULoxetine 30 MG (CYMBALTA) CAP PO SCH (09:43)
[2017-01-22] MEDS: AMIODARONE 200 MG (CORDARONE) TAB PO SCH ×2 (09:43→20:22)
[2017-01-22] MEDS: DIGOXIN 0.125 MG (LANOXIN) TAB PO SCH (09:43)
[2017-01-22] MEDS: FUROSEMIDE 20 MG (LASIX) TAB PO PRN (11:22)
--- NOTE | 2017-01-22 14:47 | Therapy Group Daily Note ---
Therapy Daily Group Note Patient Education Topic Home Safety Exercises LE Seated Exercise, Sit to/from Stand, UE Exercise Other/Notes Pt. attended group PT OT ST session this date. Pt. came by w/c and her FWW was brought for sit to stand portion of group. Pt. introduced self and was social. Education and game this date focused on Home safety aspects. Pts did sit to stand and bag toss onto a safety topic written on scattered pieces of paper on floor. Pts expressed her views of safety with respect to clutter and boxes in the home etc. Voice exercises were also done per BENEFIT AUTHORIZER. Pt. to room after with min assist to bed and to toilet etc.. Start Time: 13:00 Stop Time: 14:15 Total Billed Treatment Time: 75 Total Billed Treatment 1,GRP MAXIM THOMAS MOTORCYCLE SUBASSEMBLER Jan 22, 2017 14:47
--- NOTE | 2017-01-22 15:17 | Occupational Ther Daily Note ---
OT Current Status-Daily Note Subjective Pt seen in room, up in w/c, agreeable to OT. No pain mentioned but pt concerned about being shaky today. Appearance Alert, cooperative Mental Status/Objective Patient Orientation: Person, Place, Time, Situation Functional [place] Measure 0=Not Assessed/NA 4=Minimal Assistance 1=Total Assistance 5=Supervision or Setup 2=Maximal Assistance 6=Modified [place] 3=Moderate Assistance 7=Complete [place] ADL-Treatment Pt was fairly steady when standing to manage clothing or bathing and when she has a bar or FWW to use for balance. She was a little unsteady walking from w/c to toilet, toilet to shower bench and shower bench to w/c for dressing and needed CGA for safety, FWW. Functional [place] Measure 0=Not Assessed/NA 4=Minimal Assistance 1=Total Assistance 5=Supervision or Setup 2=Maximal Assistance 6=Modified [place] 3=Moderate Assistance 7=Complete IndependenceIRFPAI Quality Coding Scale 6 Independent with activity with or without an assistive device 5 Patient requires set up or clean up by helper. Patient completes activity by themselves 4 Supervision or touching assist (CGA). [place] provide cues , steadying assist 3 The helper provides less than half the effort to complete the activity 2 The helper provides more than half the effort to complete the activity 1 Dependent. The helper does all the effort to complete an activity 7 Patient refused to complete or attempt activity 9 The patient did not perform the activity before the current illness or injury 88 Not attempted due to Medical conditions or safety concerns Eating (FIM): 7 (No dentures. No help cutting up food or eating. ) Eating (QC): 6 Grooming (FIM): 6 (Mod I to wash face and hands in shower. Mod I to brush teeth at w/c level, in bathroom at the sink. Does not have hair to comb and does not weak makeup.) Oral Hygiene (QC): 6 Bathing (FIM): 6 (Pt able to turn water on and off and retrieve towel from bar. Washed and dried all parts, shower bench, grab bars, hand held shower, long shoe horn.) Shower/Bathe Self (QC): 6 Upper Body (FIM): 6 (Able to retrieve clean clothes from closet and put dirty ones away. Donned bra and dress without assistance. ) Upper Body Dressing (QC): 6 Lower Body Dressing (FIM): 4 (Pt was able to doff and don panties using dressing stick. Also doffed socks with dressing stick and donned them with hard sock aid. Pt was able to get R shoe on with long handled shoe horn but still needed a little help to get L foot into shoe, with AFO. Also needs SBA for standing to pull pants up, FWW. ) Lower Body Dressing (QC): 4 (SBA when standing to pull pants up, FWW) On/Off Footwear (QC): 4 (Able to doff shoes and socks using dressing stick. Donned socks with sock aid. Donned R shoe with long shoe horn but needed min assist to get L foot into shoe (with AFO in it)) Toileting (FIM): 5 (SBA when standing to manage clothing, FWW, grab bar, tall toilet) Toileting Hygiene (QC): 4 (SBA) Toilet/Commode Transfer (FIM): 5 (SBA tall toilet, grab bars, FWW. Getting up and own on toilet) Toilet Transfer (QC): 4 (SBA) Shower Transfer(FIM): 5 (SBA, shower bench, grab bars) Pt was left up in w/c, all needs met. Discussed equipment and she would like a hip kit but one with the correct sock aid. May be interested in a shower chair but seemed willing to wait for home health OT to work with her to get what she needed. See tx plan for goals met. Recommend home health OT OT Short Term Goals Short Term Goals Time Frame: Jan 22, 2017 Toileting(FIM): 3 Toilet/Commode Transfer(FIM): 4 Additional Short Term Goals: 2-Verbalize Understanding, 3-ImproveStrength/Tony 1=Demonstrate adherence to instructed precautions during ADL tasks. 2=Patient will verbalize/demonstrate understanding of assistive devices/ modifications for ADL. 3=Patient will improve strength/tolerance for activity to enable patient to perform ADL's. OT Design Maintenance Engineer Goals Half-Way Goals Time Frame: February 05, 2017 Eating (FIM): 7 (met 01-22-17) Eating (QC): 6 (met 4-24-17) Groomin (met 01-22-) Oral Hygiene (QC): 6 (met 01-22-) Bathing(FIM): 6 (met 01-22-) Shower/Bathe Self (QC): 6 (met 01-22-17) Upper Body Dressing(FIM): 6 (met 01-22-) Upper Body Dressing (QC): 6 (met 01-22-17) Lower Body Dressing(FIM): 6 (not met) Lower Body Dressing (QC): 6 (not met) On/Off Footwear (QC): 6 (not met) Toileting(FIM): 6 (not met) Toileting Hygiene (QC): 6 Toilet/Commode Transfer(FIM): 6 (not met) Toilet/Commode Transfer (QC): 6 (not met) Shower Transfer(FIM): 6 (not met) Additional Goals: 2-Verbalize Understanding, 3-ImproveStrength/Tony 1=Demonstrate adherence to instructed precautions during ADL tasks. 2=Patient will verbalize/demonstrate understanding of assistive devices/ modifications for ADL. 3=Patient will improve strength/tolerance for activity to enable patient to perform ADL's. OT Education/Plan Problem List/Assessment Pt would benefit from skilled OT to increase her independence in basic self care to allow her to safely return home to live with her . Discharge Recommendations Plan/Recommendations: Continue POC (discharge tomorrow, home with ) Treatment Plan/Plan of Care Patient would benefit from OT for education, treatment and training to promote independence in ADL's, mobility, safety and/or upper extremity function for ADL' s. Plan of Care: ADL Retraining, Functional Mobility, Group Exercise/Act as Ind ( education, exercise, activity tolerance, functional activities, memory), UE Funct Exercise/Act, UE Neuromus Re-Ed/Coord Treatment Duration: February 05, 2017 Visits Per Week: 10-11 Minutes/Day (M-F): 75-90 Minutes/Day (Sat/Simpson): PRN Agreement: Yes Rehab Potential: Good Time/GCodes Start Time: 09:30 Stop Time: 10:30 Total Time Billed (hr/min): 60 Billed Treatment Time visit, 60 minutes ADL DORIS LUU OT Jan 22, 2017 15:17
[2017-01-22] MEDS: ALFUZOSIN HCL 10 MG TAB (UROXATRAL) PO SCH (17:07)
[2017-01-22 18:40] VITALS: BP 95/62
--- NOTE | 2017-01-22 18:54 | PM & R (SOAP) Progress Note ---
Subjective Subjective/Events-last exam Patient was seen in her room this evening Patient c/o shakes Discussed with RN Patient is on antibiotic for UTI Patient is voiding OK and no leukocytosis or fever noted.Patient min assist for transfers. Objective Exam Last Set of Vital Signs Vital Signs Date Time Temp Pulse Resp B/P (MAP) Pulse Ox O2 Delivery O2 Flow Rate FiO2 01/22/17 08:00 Room Air 01/22/17 06:24 96.9 67 16 117/70 96 Capillary Refill : I&O Intake and Output 01/22/17 00:00 Intake Total 1450 ml Balance 1450 ml Intake Oral 1450 ml Bladder Scan Volume Amount 228 ml # Voids 10 # Bowel Movements 2 General: Alert, Oriented X3, Cooperative, No Acute Distress HEENT: Atraumatic, PERRLA, EOMI, Mucous Memb Moist/[place], Other (alopecia) Neck: Supple, No JVD Lungs: Clear to Auscultation Heart: Regular Rate Abdomen: Normal Bowel Sounds, Soft, No Tenderness Extremities: Other (trace edema) Neuro: Other (weakness and decreased sensation distal LLE) Results Lab Laboratory Tests 01/20/17 05:35: Prothrombin Time 27.8H, INR Comment 2.6H 01/21/17 05:15: Prothrombin Time 30.8H, INR Comment 3.0H 01/22/17 05:18: Prothrombin Time 33.5H, INR Comment 3.3H 01/22/17 15:15: Glucometer 99 Microbiology 01/17/17 Urine Culture - Final, Complete Escherichia Coli Klebsiella Pneumoniae Assessment/Plan Assessment Lumbar SS with Myelopathy/weakness and impaired sensation LLE Zoster treated Breast CA s/p lumpectomy and chemo with Peripheral neuropathy and weakness Urinary retention now voiding UTI on antibiotic 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
[2017-01-22] MEDS: LIDODERM PATCH REMOVAL TP SCH (20:22)
[2017-01-22] MEDS: PROPRANOLOL 20 MG (INDERAL) TABLET PO SCH (20:22)
[2017-01-22] MEDS: traZODone 50 MG (DESYREL) TAB PO SCH (20:22)
[2017-01-23 06:18] LABS: MEAN PLATELET VOLUME 9.5 FL (7.4-10.4); RED BLOOD COUNT 3.07 10^6/uL (4.35-5.85); RED CELL DISTRIBUTION WIDTH 17.6 % (10.0-14.5); WHITE BLOOD COUNT 2.5 10^3/uL (4.3-11.0)
[2017-01-23 06:24] LABS: PROTHROMBIN TIME PATIENT 31.1 SEC (12.2-14.7)
[2017-01-23 06:31] VITALS: BP 111/69
[2017-01-23] MEDS: BETHANECHOL 25 MG (URECHOLINE) TAB PO SCH ×2 (06:34→10:55)
[2017-01-23] MEDS: TRIM/SULFAMETH 160/800 (SEPTRA DS) TAB PO SCH (06:34)
[2017-01-23 06:36] LABS: ANION GAP 9 MMOL/L (5-14); BLOOD UREA NITROGEN 10 MG/DL (7-18); BUN/CREATININE RATIO 13; CALCIUM 8.7 MG/DL (8.5-10.1); CARBON DIOXIDE 27 MMOL/L (21-32); CHLORIDE 109 MMOL/L (98-107); CREATININE SERUM 0.77 MG/DL (0.60-1.30); GFR ESTIMATED > 60; GLUCOSE 97 MG/DL (70-105); POTASSIUM 3.6 MMOL/L (3.6-5.0); SODIUM 145 MMOL/L (135-145)
--- NOTE | 2017-01-23 08:54 | Progress Note (SOAP) ---
Subjective Subjective/Events-last exam patient feeling better today. Patient states propranolol has helped tremors. Debility. Patient be discharged today. Patient feels better than last night Objective Exam Vital Signs Date Time Temp Pulse Resp B/P (MAP) Pulse Ox O2 Delivery O2 Flow Rate FiO2 01/23/17 06:31 97.2 57 16 111/69 96 NIV CPAP 01/22/17 18:40 96.1 71 16 95/62 93 I & O 01/23/17 07:00 Intake Total 950 ml Balance 950 ml Capillary Refill : General Appearance: No Apparent Distress, WD/WN Results Lab Laboratory Tests 01/23/17 06:10 Laboratory Tests 01/22/17 15:15: Glucometer 99 01/23/17 06:10: White Blood Count 2.5L, Red Blood Count 3.07L, Hemoglobin 9.4L, Hematocrit 30L, Mean Corpuscular Volume 97, Mean Corpuscular Hemoglobin 31, Mean Corpuscular Hemoglobin Concent 31L, Red Cell Distribution Width 17.6H, Platelet Count 175, Mean Platelet Volume 9.5, Prothrombin Time 31.1H, INR Comment 3.0H, Sodium Level 145, Potassium Level 3.6, Chloride Level 109H, Carbon Dioxide Level 27, Anion Gap 9, Blood Urea Nitrogen 10, Creatinine 0.77, Estimat Glomerular Filtration Rate > 60, BUN/Creatinine Ratio 13, Glucose Level 97, Calcium Level 8.7 Microbiology 01/17/17 Urine Culture - Final, Complete Escherichia Coli Klebsiella Pneumoniae Assessment/Plan Assessment/Plan Assess & Plan/Chief Complaint Debility. A. fib. Herpes zoster. Patient now in sinus rhythm. Left foot drop. Weight loss 41 pounds. . Debility. Herpes zoster. 01/10/17.. . 01/11/17. Debility. A. fib. Herpes zoster. Patient unable to void. Patient have the Mi catheter put back in. . 01/12/17. Debility. Atrial fib. Herpes zoster Patient now in sinus rhythm. . 01/15/17. Debility. A. fib history. Knee pain. X-ray shows arthritis of knee and no acute process. . 01/16/17. Debility. A. fib history. Patient not able to void. Patient feel she is improving.. . 01/17/17. Debility. A. fib history. Patient has Mi catheter put back in. Patient states she's constipated... . 01/24/17. Debility . A. fib history area Urine showed nitrate positive. Patient voices no complaints. . 01/19/17. Debility.Atrial fib history. Patient getting around better. Patient walking better. Patient feel she still has a urinary problem . 01/22/17 debility. A. fib area Herpes zoster. Patient in sinus rhythm. Patient complaining of tremor of hands. . 01/23/17.. Debility. A. fib. Herpes zoster. Tremors hands better with propanolol. Patient to be discharged today Clinical Quality Measures DVT/VTE Risk/Contraindication: Risk Factor Score Per Nursin RFS Level Per Nursing on Admit: 4+=Very High BOUBACAR MARR DO Jan 23, 2017 08:54
[2017-01-23] MEDS: LIDOCAINE (LIDODERM) 5% PATCH TOP SCH (09:00)
--- NOTE | 2017-01-23 09:55 | PM & R (SOAP) Progress Note ---
Subjective Subjective/Events-last exam Patient was seen in her room this AM.Discussed case with RN Candida Dawson note and orders Patient reports some nightsweats last night but feeling better today Tremors improved with Propranolol Objective Exam Last Set of Vital Signs Vital Signs Date Time Temp Pulse Resp B/P (MAP) Pulse Ox O2 Delivery O2 Flow Rate FiO2 01/23/17 06:31 97.2 57 16 111/69 96 NIV CPAP Capillary Refill : I&O Intake and Output 01/23/17 00:00 Intake Total 1300 ml Balance 1300 ml Intake Oral 1300 ml # Voids 6 # Bowel Movements 2 General: Alert, Oriented X3, Cooperative, No Acute Distress HEENT: Atraumatic, PERRLA, EOMI, Mucous Memb Moist/[place], Other (alopecia) Neck: Supple, No JVD Lungs: Clear to Auscultation Heart: Regular Rate Abdomen: Normal Bowel Sounds, Soft, No Tenderness Extremities: Other (trace edema) Neuro: Other (weakness and decreased sensation distal LLE) Results Lab Laboratory Tests 01/21/17 05:15: Prothrombin Time 30.8H, INR Comment 3.0H 01/22/17 05:18: Prothrombin Time 33.5H, INR Comment 3.3H 01/22/17 15:15: Glucometer 99 01/23/17 06:10: Prothrombin Time 31.1H, INR Comment 3.0H, White Blood Count 2.5L, Red Blood Count 3.07L, Hemoglobin 9.4L, Hematocrit 30L, Mean Corpuscular Volume 97, Mean Corpuscular Hemoglobin 31, Mean Corpuscular Hemoglobin Concent 31L, Red Cell Distribution Width 17.6H, Platelet Count 175, Mean Platelet Volume 9.5, Sodium Level 145, Potassium Level 3.6, Chloride Level 109H, Carbon Dioxide Level 27, Anion Gap 9, Blood Urea Nitrogen 10, Creatinine 0.77, Estimat Glomerular Filtration Rate > 60, BUN/Creatinine Ratio 13, Glucose Level 97, Calcium Level 8.7 Microbiology 01/17/17 Urine Culture - Final, Complete Escherichia Coli Klebsiella Pneumoniae Assessment/Plan Assessment Lumbar SS with Myelopathy/weakness and impaired sensation LLE Zoster treated Breast CA s/p lumpectomy and chemo with Peripheral neuropathy and weakness Urinary retention now voiding UTI on antibiotic 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 See orders YVONNE LIRA MD Jan 23, 2017 09:55
[2017-01-23] MEDS: DOCUSATE SODIUM 100 MG (COLACE) CAP PO SCH (09:58)
[2017-01-23] MEDS: AMIODARONE 200 MG (CORDARONE) TAB PO SCH (09:59)
[2017-01-23] MEDS: PROPRANOLOL 20 MG (INDERAL) TABLET PO SCH (09:59)
[2017-01-23] MEDS: DIGOXIN 0.125 MG (LANOXIN) TAB PO SCH (09:59)
[2017-01-23] MEDS: PREGABALIN 100 MG (LYRICA) CAPSULE PO SCH (09:59)
[2017-01-23] MEDS: DULoxetine 30 MG (CYMBALTA) CAP PO SCH (09:59)
[2017-01-23] MEDS ORDERED: ALFU10TA11 PO (10:05)
[2017-01-23] MEDS ORDERED: SULF1TAB35 PO (10:05)
[2017-01-23] MEDS ORDERED: BETH25TA PO (10:05)
[2017-01-23] MEDS ORDERED: PROP20TA5 PO (10:05)
[2017-01-23] MEDS ORDERED: AMIO200T2 PO (10:05)
[2017-01-23] MEDS: ONDANSETRON 4 MG (ZOFRAN) ORAL DISSOLVE TAB PO PRN (10:55)
[2017-01-23 11:51] VITALS: BP 111/69
--- NOTE | 2017-01-23 13:22 | Therapy Team Discharge Summary ---
Therapy Discharge Summary Discharge Recommendations Date of Discharge Jan 23, 2017 at 11:30 Physical Therapy Patient came to rehab with debility. Upon admission patient performed bed mobility and transfers with CGA/Akhil, ambulated just a few steps using a rolling walker with CGA, did not perform stairs due to weakness, and could propel a manual wheelchair with mod I. Patient has been performing bed mobility and transfer training, balance and endurance training, functional strengthening, stair training, gait training, and education. Patient has made fair progress and has met some of her [facility] goals (wheelchair and bed mobility) but not all of them. Now, patient performs bed mobility with mod I, sit to stand with CGA and transfers with SBA, propels a manual wheelchair 150' with mod I, ambulates 100' with a rolling walker and left AFO with CGA ( including going 50' with at least 2 turns of 90 degrees, but not over uneven surfaces), and can go up and down 1 step using a rolling walker with CGA. Patient is being discharged from this facility today and will be discharged from PT at this time. PT Athletic Instructor Goals Correction Goals PT Correction Goals Time Frame: February 05, 2017 Transfers (B,C,W/C) (FIM): 6 Roll Left to Right (QC): 6 (met) Sit to Lying (QC): 6 (met) Lying-Sitting on Side/Bed(QC): 6 (met) Sit to Stand (QC): 6 Chair/Qiw-ou-Tpfnw Xfer(QC): 6 Car Transfer (QC): 5 Does the Patient Walk: No and Walking Goal IS indicated Gait (FIM): 6 Gait distance (FIM): 3=150 ft Walk 10 feet (QC): 6 Walk 10ft-Uneven Surface(QC): 6 Walk 50ft with 2 Turns (QC): 6 Walk 150 ft (QC): 6 Gait Assistive Device: FWW Does the Pt use WC or Scooter?: Yes Wheelchair (FIM): 6 Wheel 50 feet with 2 turns (QC: 6 (met) Stairs (FIM): 2 # of Steps: 4 1 Step (curb) (QC): 4 4 Steps (QC): 4 12 Steps (QC): 9 Picking up an Object (QC): 4 OT Athletic Instructor Goals Correction Goals Time Frame: February 05, 2017 Eating (FIM): 7 (met 01-22-17) Eating (QC): 6 (met 01-22-17) Oral Hygiene (QC): 6 (met 01-22-17) Grooming(FIM): 6 (met 01-22-17) Bathing(FIM): 6 (met 01-22-) Shower/Bathe Self (QC): 6 (met 01-22-17) Upper Body Dressing(FIM): 6 (met 01-22-17) Upper Body Dressing (QC): 6 (met 01-22-17) Lower Body Dressing(FIM): 6 (not met) Lower Body Dressing (QC): 6 (not met) On/Off Footwear (QC): 6 (not met) Toileting(FIM): 6 (not met) Toileting Hygiene (QC): 6 Toilet/Commode Transfer(FIM): 6 (not met) Toilet/Commode Transfer (QC): 6 (not met) Shower Transfer(FIM): 6 (not met) Additional Goals: 2-Verbalize Understanding, 3-ImproveStrength/Tony 1=Demonstrate adherence to instructed precautions during ADL tasks. 2=Patient will verbalize/demonstrate understanding of assistive devices/ modifications for ADL. 3=Patient will improve strength/tolerance for activity to enable patient to perform ADL's. LALO VILLEGAS PT Jan 23, 2017 13:22
--- NOTE | 2017-01-23 15:05 | Occupational Ther Daily Note ---
OT Current Status-Daily Note Subjective Pt seen in room, up in recliner, agreeable to OT. Anticipated going home today and reported less shaking of her hands. Appearance Alert, cooperative Mental Status/Objective Functional [place] Measure 0=Not Assessed/NA 4=Minimal Assistance 1=Total Assistance 5=Supervision or Setup 2=Maximal Assistance 6=Modified [place] 3=Moderate Assistance 7=Complete [place] ADL-Treatment Pt practiced donning sock with soft sock aid after education on technique. She reported that it seemed to fit her socks a little better and she liked using it. Recommend dressing stick, ribbon blockmaker, sock aid, long shoe horn, long handled sponge for use at home. Functional [place] Measure 0=Not Assessed/NA 4=Minimal Assistance 1=Total Assistance 5=Supervision or Setup 2=Maximal Assistance 6=Modified [place] 3=Moderate Assistance 7=Complete IndependenceIRFPAI Quality Coding Scale 6 Independent with activity with or without an assistive device 5 Patient requires set up or clean up by helper. Patient completes activity by themselves 4 Supervision or touching assist (CGA). [place] provide cues , steadying assist 3 The helper provides less than half the effort to complete the activity 2 The helper provides more than half the effort to complete the activity 1 Dependent. The helper does all the effort to complete an activity 7 Patient refused to complete or attempt activity 9 The patient did not perform the activity before the current illness or injury 88 Not attempted due to Medical conditions or safety concerns Other Treatment Pt education in home exercise program with juan c murray. Pt was provided with written instructions of the exercises and she did return demonstration of them, with a few cues. Also talked about how she can progress the exercises as she gets stronger. pt to have home health OT and the OT can also progress them as she tolerates. pt left up in recliner, all needs met. OT Short Term Goals Short Term Goals Time Frame: Jan 22, 2017 Toileting(FIM): 3 Toilet/Commode Transfer(FIM): 4 Additional Short Term Goals: 2-Verbalize Understanding, 3-ImproveStrength/Tony 1=Demonstrate adherence to instructed precautions during ADL tasks. 2=Patient will verbalize/demonstrate understanding of assistive devices/ modifications for ADL. 3=Patient will improve strength/tolerance for activity to enable patient to perform ADL's. OT Mcfp Goals Mcfp Goals Time Frame: February 05, 2017 Eating (FIM): 7 (met 01-22-17) Eating (QC): 6 (met 01-22-17) Groomin (met 01-22-17) Oral Hygiene (QC): 6 (met 01-22-17) Bathing(FIM): 6 (met 01-22-17) Shower/Bathe Self (QC): 6 (met 01-22-17) Upper Body Dressing(FIM): 6 (met 01-22-17) Upper Body Dressing (QC): 6 (met 01-22-17) Lower Body Dressing(FIM): 6 (not met) Lower Body Dressing (QC): 6 (not met) On/Off Footwear (QC): 6 (not met) Toileting(FIM): 6 (not met) Toileting Hygiene (QC): 6 Toilet/Commode Transfer(FIM): 6 (not met) Toilet/Commode Transfer (QC): 6 (not met) Shower Transfer(FIM): 6 (not met) Additional Goals: 2-Verbalize Understanding, 3-ImproveStrength/Tony 1=Demonstrate adherence to instructed precautions during ADL tasks. 2=Patient will verbalize/demonstrate understanding of assistive devices/ modifications for ADL. 3=Patient will improve strength/tolerance for activity to enable patient to perform ADL's. OT Education/Plan Problem List/Assessment Pt would benefit from skilled OT to increase her independence in basic self care to allow her to safely return home to live with her . Discharge Recommendations Plan/Recommendations: Discharge/Goals Met (See tx plan for specifics) Treatment Plan/Plan of Care Patient would benefit from OT for education, treatment and training to promote independence in ADL's, mobility, safety and/or upper extremity function for ADL' s. Plan of Care: ADL Retraining, Functional Mobility, Group Exercise/Act as Ind ( education, exercise, activity tolerance, functional activities, memory), UE Funct Exercise/Act, UE Neuromus Re-Ed/Coord Treatment Duration: February 05, 2017 Visits Per Week: 10-11 Minutes/Day (M-F): 75-90 Minutes/Day (Sat/Simpson): PRN Agreement: Yes Rehab Potential: Good Time/GCodes Start Time: 08:30 Stop Time: 08:53 Total Time Billed (hr/min): 23 Billed Treatment Time visit, 15 minutes exercise, 8 minutes ADL DORIS LUU OT Jan 23, 2017 15:05
--- NOTE | 2017-01-23 15:11 | Therapy Team Discharge Summary ---
Therapy Discharge Summary Discharge Recommendations Date of Discharge Jan 23, 2017 at 11:30 Therapy D/C Recommendations: Occupational Therapy Home Care Occupational Therapy Pt was seen for skilled OT to increase her independence in basic self care to allow her to return home safely with family. On admission she needed mod assist for toilet transfers and was dependant with toileting. She could groom with setup but needed setup for upper body dressing and mod assist for lower body dressing. Bathing was with min assistance. By discharge she was independent with eating, modified independent with grooming, bathing and upper body dressing , CGA for lower body dressing and SBA toilet and shower transfers. equipment used included dressing stick, boat designer, sock aid, long shoe horn and long handled sponge. See tx plan for goals met. recommend home health OT. DC OT PT Soda Dialyzer Goals Soda Dialyzer Goals PT Soda Dialyzer Goals Time Frame: February 05, 2017 Transfers (B,C,W/C) (FIM): 6 Roll Left to Right (QC): 6 (met) Sit to Lying (QC): 6 (met) Lying-Sitting on Side/Bed(QC): 6 (met) Sit to Stand (QC): 6 Chair/Gbi-uk-Qnkxm Xfer(QC): 6 Car Transfer (QC): 5 Does the Patient Walk: No and Walking Goal IS indicated Gait (FIM): 6 Gait distance (FIM): 3=150 ft Walk 10 feet (QC): 6 Walk 10ft-Uneven Surface(QC): 6 Walk 50ft with 2 Turns (QC): 6 Walk 150 ft (QC): 6 Gait Assistive Device: FWW Does the Pt use WC or Scooter?: Yes Wheelchair (FIM): 6 Wheel 50 feet with 2 turns (QC: 6 (met) Stairs (FIM): 2 # of Steps: 4 1 Step (curb) (QC): 4 4 Steps (QC): 4 12 Steps (QC): 9 Picking up an Object (QC): 4 OT Soda Dialyzer Goals Residential Goals Time Frame: February 05, 2017 Eating (FIM): 7 (met 4-24-17) Eating (QC): 6 (met 4-24-17) Oral Hygiene (QC): 6 (met 4-24-17) Grooming(FIM): 6 (met 4-24-17) Bathing(FIM): 6 (met 4-24-17) Shower/Bathe Self (QC): 6 (met 01-22-17) Upper Body Dressing(FIM): 6 (met 01-22-17) Upper Body Dressing (QC): 6 (met --17) Lower Body Dressing(FIM): 6 (not met) Lower Body Dressing (QC): 6 (not met) On/Off Footwear (QC): 6 (not met) Toileting(FIM): 6 (not met) Toileting Hygiene (QC): 6 Toilet/Commode Transfer(FIM): 6 (not met) Toilet/Commode Transfer (QC): 6 (not met) Shower Transfer(FIM): 6 (not met) Additional Goals: 2-Verbalize Understanding, 3-ImproveStrength/Tony 1=Demonstrate adherence to instructed precautions during ADL tasks. 2=Patient will verbalize/demonstrate understanding of assistive devices/ modifications for ADL. 3=Patient will improve strength/tolerance for activity to enable patient to perform ADL's. DORIS LUU OT Jan 23, 2017 15:11
--- NOTE | 2017-01-25 12:01 | Physician Query ---
PQ-Link Infection to Dev/Proc Admission/Discharge Admission Date: Jan 08, 2017 at 11:14 Discharge Date: Jan 23, 2017 at 11:30 The medical record reflects the following clinical scenario: History/Risk Factors: Neurogenic bladder Clinical Findings: urinary retention Treatment: Bactrim Question: Can you specify if the UTI is due to/associated with indwelling catheter? Please document a response below. PHYSICIAN RESPONSE Specify if infection: Other, explanation/clinical finding Explanation of clincal finding urine retention Please remember a lack of response to the above will prompt a phone page by CDI/ coding staff. In responding to this query, please exercise your independent professional judgment. The purpose of this communication is to more accurately reflect the complexity of your patients condition. The fact that a question is asked does not imply that any particular answer is desired or expected. Thank you for your timely response to this clarification. Requestors name: Vick THIS PHYSICIAN QUERY FORM IS A PERMANENT PART OF THE MEDICAL RECORD VICK HANKINS Jan 25, 2017 12:01 SELENE HUBBARD MD January 30, 2017 09:47
== END 2017-01-23 11:30 | disposition home health service (06) | DRG 74 ==
LOC: ENPENDDIS 01-23 12:00
PROVIDERS: ADMIT Physical Medicine & Rehabilitation; ATTEND Physical Medicine & Rehabilitation
DX: G62.0 Drug-induced polyneuropathy (principal); M21.372 Foot drop, left foot; M48.06 Spinal stenosis, lumbar region; N39.0 Urinary tract infection, site not specified; N31.9 Neuromuscular dysfunction of bladder, unspecified; R33.9 Retention of urine, unspecified; I10 Essential (primary) hypertension; I48.2 Chronic atrial fibrillation; C50.911 Malignant neoplasm of unspecified site of right female breast; R25.1 Tremor, unspecified
CPT/HCPCS: 36415; 73560; 80048; 80053; 81000; 82962; 85025; 85027; 85610; 87077; 87088; 87186